=== PATIENT | female | born 1995 | race Caucasian/White ===

== ENCOUNTER 2018-03-10 19:07 | Emergency (ER) | payer OTHER ==
[2018-03-10 19:23] VITALS: BP 120/75; PULSE 96; TEMP 98.1; BMI 20.1
--- NOTE | 2018-03-10 19:54 | PDOC ---
History of Present Illness - General Chief Complaint: Pain Stated Complaint: ABD PAIN, VOMITING Time Seen by Provider: 03/10/18 19:44 History Source: Patient Exam Limitations: No Limitations - History of Present Illness Initial Comments: 03/10/18 19:49 Patient is a 23 year old female LMP 01/03/18 complaining of lower right abdominal pain since 02/26. States her pain is sharp, 02/25, intermittent. States she went to [facility] on 02/26 at which time she was told initially that she had an ovarian cyst. She states ultrasound was not done. Then 3 days ago went back to [facility] for the same pain and on this time told she was , however no ultrasound done. She denies any vaginal bleeding. Patient states currently in no pain. Has OB appointment in 3 days. PMHX: neg PSOCHX: (+) smoke hooka, (+) etoh, (-) drug ALL: NKDA GENERAL/CONSTITUTIONAL: [No fever or chills. No weakness. No weight change.] HEAD, EYES, EARS, NOSE AND THROAT: [No change in vision. No ear pain or discharge. No sore throat.] CARDIOVASCULAR: [No chest pain or shortness of breath.] RESPIRATORY: [No cough, wheezing, or hemoptysis.] GASTROINTESTINAL: [No nausea, vomiting, diarrhea or constipation. No rectal bleeding.] GENITOURINARY: [No dysuria, frequency, or change in urination.] MUSCULOSKELETAL: [No joint or muscle swelling or pain. No neck or back pain.] SKIN AND BREASTS: [No rash or easy bruising.] NEUROLOGIC: [No headache, vertigo, loss of consciousness, or loss of sensation.] PSYCHIATRIC: [No depression or anxiety.] ENDOCRINE: [No increased thirst. No abnormal weight change.] HEMATOLOGIC/LYMPHATIC: [No anemia, easy bleeding, or history of blood clots.] ALLERGIC/IMMUNOLOGIC: [No hives or skin allergy. No latex allergy.] GENERAL: [The patient is awake, alert, and fully oriented, in no acute distress. ] HEAD: [Normal with no signs of trauma.] EYES: [Pupils equal, round and reactive to light, extraocular movements intact, sclera anicteric, conjunctiva clear.] ENT: [Ears normal, nares patent, oropharynx clear without exudates. Moist mucous membranes.] NECK: [Normal range of motion, supple without lymphadenopathy, JVD, or masses.] LUNGS: [Breath sounds equal, clear to auscultation bilaterally. No wheezes, and no crackles.] HEART: [Regular rate and rhythm, normal S1 and S2 without murmur, rub.] ABDOMEN: [Soft, (+) tenderness in the Right lower groin, nontender McBurney's, normoactive bowel sounds. No guarding, no rebound. No masses.] PELVIC: External genitalia, creamy physiological discharge in the vault. Bimanual: Right adnexal tenderness, no CMT EXTREMITIES: [Normal range of motion, no edema. No clubbing or cyanosis. No cords, erythema, or tenderness.] NEUROLOGICAL: [Cranial nerves II through XII grossly intact. Normal speech, normal gait.] PSYCH: [Normal mood, normal affect.] SKIN: [Warm, Dry, normal turgor, no rashes or lesions noted.] Past History - Past Medical History Allergies/Adverse Reactions: Allergies Allergy/AdvReac Type Severity Reaction Status Date / Time No Known Allergies Allergy Verified 03/10/18 19:23 Home Medications: Ambulatory Orders Cephalexin [Keflex] 500 mg PO BID #10 capsule 03/10/18 Asthma: No Cardiac Disorders: No CVA: No COPD: No DVT: No Dementia: No - Suicide/Smoking/Psychosocial Hx Smoking History: Never smoked Drug/Substance Use Hx: No *Physical Exam - Vital Signs Last Vital Signs Temp Pulse Resp BP Pulse Ox 98.1 F 96 H 20 120/75 100 03/10/18 19:20 03/10/18 19:20 03/10/18 19:20 03/10/18 19:20 03/10/18 19:20 ED Treatment Course - LABORATORY CBC & Chemistry Diagram: 03/10/18 20:08 03/10/18 20:08 Medical Decision Making - Medical Decision Making 03/10/18 19:49 Patient is a 23 year old female LMP 01/12/18 complaining of lower right abdominal pain since 02/26. We will get labs, pain meds, IV fluids Ultrasound TV and TA. reassess 03/10/18 22:04 Patient Full Name: ALEISHA SINGLETON Patient Accession No: [id number] Patient : 1995 Reason for Exam: rlq pain Referring Physician: Patient Name: MANI MORAES THIS IS A PRELIMINARY REPORT FROM IMAGING PROGRAM ASSISTANT EXAM: Obstetrical ultrasound, less than 14 weeks, transabdominal and transvaginal IMAGES: 35 DATE OF EXAM: 2018-03-10 20:16:56 REASON FOR EXAM: Right lower quadrant pain COMPARISON: None. FINDINGS: Small intrauterine gestational sac containing only a yolk sac corresponding to approximately 5 weeks and 0 days. No pole or cardiac activity is noted. Complex area with hyperemia in the right ovary likely representing a collapsed recently ruptured corpus luteal cyst. Left maternal ovary appears normal. Duplex Ultrasound: Appropriate arterial and/or venous flow are noted in both ovaries, making torsion unlikely at this time. No significant free pelvic fluid. THIS DOCUMENT HAS BEEN ELECTRONICALLY SIGNED Artie Hernandez MD 03/10/2018 21:44 EST M.D. Please call Imaging Dx Board Operator [phone] ([phone]) with questions. INTERPRETING RADIOLOGIST: Artie Hernandez MD Electronically Signed: Mar 10, 2018 09:46PM EDT I discussed the physical exam findings, ancillary test results and final diagnoses with the patient. I answered all of the patient's questions. The patient was satisfied with the care received and felt comfortable with the discharge plan and treatment plan. The Patient agrees to follow up with the primary care physician within 24-72 hours. *DC/Admit/Observation/Transfer Diagnosis at time of Disposition: Abdominal pain affecting , antepartum - Discharge Dispostion Disposition: HOME Condition at time of disposition: Stable - Prescriptions Prescriptions: Cephalexin [Keflex] 500 mg PO BID #10 capsule - Referrals - Patient Instructions Printed Discharge Instructions: DI for Abdominal Pain -- Early Additional Instructions: Your Discharge Instructions: You must call primary care physician within 24 hours to arrange follow-up. Return to the Emergency Department with any new, persistent or worsening symptoms, for fever, chills, SOB, dizziness or any other concerning changes that may occur. [facility] Start the medication but call in 2 days for report if neg stop the antibx or you could wait to start antibx until the culture comes back. - Post Discharge Activity
[2018-03-10] MEDS ORDERED: SODIUM CHLORIDE 0.9% 500 ML INFUS.BAG IV ONE (20:07)
[2018-03-10 20:26] LABS: URINE APPEARANCE SLCLOUDY; URINE BILIRUBIN NEGATIVE (<2.0 mg/dL); URINE COLOR YELLOW; URINE GLUCOSE (UA) NEGATIVE (NEGATIVE); URINE KETONE NEGATIVE (NEGATIVE); URINE LEUK ESTERASE TRACE (NEGATIVE); URINE NITRITE NEGATIVE (NEGATIVE); URINE PROTEIN NEGATIVE (NEGATIVE); URINE UROBILINOGEN NEGATIVE mg/dL (0.2-1.0)
[2018-03-10 20:30] LABS: BASO % 0.6 % (0-2.0); EOS % 0.9 % (0-4.5); HEMATOCRIT 42.4 % (32.4-45.2); HEMOGLOBIN 14.3 GM/dL (10.7-15.3); LYMPH % 19.4 % (8-40); MCH 30.1 pg (25.7-33.7); MCHC 33.8 g/dl (32.0-36.0); MEAN CELL VOLUME 89.1 fl (80-96); MEAN PLT VOLUME 7.9 fl (7.5-11.1); MONO % 6.8 % (3.8-10.2); NEUT % 72.3 % (42.8-82.8); PLATELET COUNT 343 K/MM3 (134-434); RBC 4.76 M/mm3 (3.60-5.2); WHITE BLOOD COUNT 11.7 K/mm3 (4.0-10.0)
[2018-03-10 20:34] LABS: EPI CELLS FEW /HPF (FEW); URINE BACTERIA RARE /hpf (NONE SEEN); URINE MUCUS FEW
[2018-03-10 21:22] LABS: ALBUMIN 4.4 g/dl (3.4-5.0); ALK PHOS 46 U/L (45-117); ANION GAP 10 MMOL/L (8-16); BILIRUBIN,TOTAL 0.8 mg/dL (0.2-1); BLOOD UREA NITROGEN 20 mg/dL (7-18); CALCIUM 9.4 mg/dL (8.5-10.1); CHLORIDE 106 mmol/L (98-107); CO2 22 mmol/L (21-32); CREATININE 0.5 mg/dL (0.55-1.3); GLUCOSE,RANDOM 74 mg/dL (74-106); POTASSIUM 4.1 mmol/L (3.5-5.1); SGOT/AST 17 U/L (15-37); SGPT/ALT 23 U/L (13-61); SODIUM 138 mmol/L (136-145); TOT PROT 8.2 g/dl (6.4-8.2)
== END 2018-03-10 22:48 | disposition home or self-care (01) ==
LOC: JER 19:07
DX: O26.891 Other specified pregnancy related conditions, first trimester (principal); R10.31 Right lower quadrant pain; Z3A.01 Less than 8 weeks gestation of pregnancy
CPT/HCPCS: 36415; 76817-TC; 80053; 81003; 81015; 84702; 85025; 86850; 86900; 86901; 87086; 99282-25

== ENCOUNTER 2018-04-28 10:19 | Emergency (ER) | payer BC, OTHER ==
[2018-04-28 10:24] VITALS: BMI 20.9
[2018-04-28 11:02] LABS: BASO % 0.4 % (0-2.0); HEMOGLOBIN 12.8 GM/dL (10.7-15.3); LYMPH % 19.7 % (8-40); MCH 30.8 pg (25.7-33.7); MCHC 34.5 g/dl (32.0-36.0); MEAN CELL VOLUME 89.4 fl (80-96); MEAN PLT VOLUME 7.8 fl (7.5-11.1); MONO % 8.3 % (3.8-10.2); NEUT % 68.6 % (42.8-82.8); PLATELET COUNT 315 K/MM3 (134-434); RBC 4.14 M/mm3 (3.60-5.2); WHITE BLOOD COUNT 9.5 K/mm3 (4.0-10.0)
[2018-04-28] MEDS ORDERED: ACETAMINOPHEN 500 MG TABLET (FP) PO ONE (11:13)
--- NOTE | 2018-04-28 11:16 | PDOC ---
Attending Attestation - Resident Resident Name: JaninaMilli - ED Attending Attestation I have performed the following: I have examined & evaluated the patient, The case was reviewed & discussed with the resident, I agree w/resident's findings & plan, Exceptions are as noted - HPI HPI: 04/28/18 11:41 23y F at 12 weeks presents to the ED with lower abdom pain starting last night. Pt notes the pain is constant, but intermittently worsens and is more severe this morning. Pt notes an episode of vomiting last night but notes she has been feeling during her in general. vomit is nbnb, and she is not nauseus currently. Pt denies any fever/chills, frequency, dysuria, foul- smelling urine, diarrhea, vaginal bleeding. Eyes any back pain, chest pain, shortness of breath, leg swelling. Patient states she has never had this type of pain before. GENERAL: The patient is awake, alert, and fully oriented, Nontoxic - in no acute distress. HEAD: Normocephalic, atraumatic. EYES: extraocular movements intact, sclera anicteric, conjunctiva clear. ENT: Normal voice, Moist mucous membranes. NECK: Normal range of motion, supple LUNGS: Breath sounds equal, clear to auscultation bilaterally. No wheezes, no rhonchi, no rales. HEART: Regular rate and rhythm, normal S1 and S2 without murmur, rub or gallop. ABDOMEN: Soft, mild diffuse lower abdominal tenderness worsening suprapubic region No guarding, no rebound. No CVA tenderness EXTREMITIES: Normal range of motion, no edema. No clubbing or cyanosis. No cords, erythema, or tenderness. NEUROLOGICAL: No facial assymetry, Normal speech, PSYCH: Normal mood, normal affect. SKIN: Warm, Dry, normal turgor, - Medical Decision Making 04/28/18 11:44 ddx for the patient's symptoms includes cystitis, enteritis, appendicitis, diverticulitis Will obtain lab work, urine we'll treat the patient with some fluids and Tylenol Will obtain ultrasound will reassess
--- NOTE | 2018-04-28 11:23 | PDOC ---
History of Present Illness - General Chief Complaint: Pain Stated Complaint: STOMACH PAIN/12 WKS Time Seen by Provider: 04/28/18 10:44 History Source: Patient Exam Limitations: No Limitations - History of Present Illness Initial Comments: 04/28/18 11:19 Pt is a 23yo f 12weeks presenting to the ED with diffuse abdominal pain that started last night. She says she had [place] pizza, had 1 episode of emesis and abdominal pain started last night. She woke up this morning but pain has not gotten better. She has not taken any medications. She admits to diffuse abdominal pain. Denies nausea, vomiting today, diarrhea, vaginal bleeding, leakage of fluid, urinary symptoms, fevers, chills, chest pain , sob. She says she has vaginal discharge which is due to yeast infection. Last OB visit was last month and pt says everything was fine. PMH: none PSH: none Meds: none Social: denies Allergies: nkda Past History - Past Medical History Allergies/Adverse Reactions: Allergies Allergy/AdvReac Type Severity Reaction Status Date / Time No Known Allergies Allergy Verified 04/28/18 10:24 Home Medications: Ambulatory Orders Cephalexin Monohydrate [Keflex -] 500 mg PO BID #14 capsule 04/28/18 Asthma: No Cardiac Disorders: No CVA: No COPD: No DVT: No Dementia: No - Reproductive History Therapeutic (s) & number: No - Suicide/Smoking/Psychosocial Hx Smoking History: Never smoked Drug/Substance Use Hx: No *Physical Exam - Vital Signs Last Vital Signs Temp Pulse Resp BP Pulse Ox 98.4 F 70 18 108/70 100 04/28/18 10:20 04/28/18 10:20 04/28/18 10:20 04/28/18 10:20 04/28/18 10:20 - Physical Exam Gastrointestinal/Abdominal: positive: Tender (Left quadrants >r quadrants. mildly positive psoas sign. negative rosving) ED Treatment Course - LABORATORY CBC & Chemistry Diagram: 04/28/18 10:39 04/28/18 10:39 - ADDITIONAL ORDERS Additional order review: 04/28/18 10:39 RBC 4.14 MCV 89.4 MCHC 34.5 RDW 13.0 MPV 7.8 Neutrophils % 68.6 Lymphocytes % 19.7 Monocytes % 8.3 Eosinophils % 3.0 D Basophils % 0.4 - RADIOLOGY Radiology Studies Ordered: Category Date Time Status ABDOMEN US [US] Stat Ultrasound 04/28/18 11:18 Ordered Medical Decision Making - Medical Decision Making 04/28/18 12:52 Pt is a 23yo f 12weeks presenting to the ED with diffuse abdominal pain that started last night. *DC/Admit/Observation/Transfer Diagnosis at time of Disposition: UTI (urinary tract infection) Qualifiers: Urinary tract infection type: site unspecified Hematuria presence: without hematuria Qualified Code(s): N39.0 - Urinary tract infection, site not specified - Discharge Dispostion Disposition: HOME Condition at time of disposition: Good Decision to Admit order: No - Prescriptions Prescriptions: Cephalexin Monohydrate [Keflex -] 500 mg PO BID #14 capsule - Referrals - Patient Instructions Printed Discharge Instructions: DI for Urinary Tract Infection (UTI) Additional Instructions: You were seen here today for abdominal pain. Your tests show that you have a urinary tract infection. All of your other tests were normal and baby is doing fine! I have sent a prescription over to your pharmacy for Keflex (cephalexin), an antibiotic to treat the UTI. Please take twice a day for 7 days. Make sure you finish the course. You can take Tylenol for pain. Please do not take Motrin (ibuprofen), Aleeve, or Advil for pain. Remember to stay hydrated and eat healthy. Come back to the emergency room if pain gets worse, you have pain with urination , you notice blood in the urine, you have vaginal bleeding, you have contractions, you develop fever, or if any new concerning symptom develops. Thank you - Post Discharge Activity
[2018-04-28 11:33] LABS: URINE APPEARANCE SLCLOUDY; URINE BILIRUBIN NEGATIVE (<2.0 mg/dL); URINE COLOR YELLOW; URINE GLUCOSE (UA) NEGATIVE (NEGATIVE); URINE KETONE NEGATIVE (NEGATIVE); URINE LEUK ESTERASE 1+ (NEGATIVE); URINE NITRITE NEGATIVE (NEGATIVE); URINE PROTEIN NEGATIVE (NEGATIVE); URINE UROBILINOGEN 4.0 E.U/dl mg/dL (0.2-1.0)
[2018-04-28] MEDS ORDERED: SODIUM CHLORIDE 1,000 ML IV STA (11:42)
[2018-04-28] MEDS ORDERED: ACETAMINOPHEN 325 MG TABLET (FP) ONE (11:49)
[2018-04-28 11:51] LABS: ALBUMIN 3.4 g/dl (3.4-5.0); ALK PHOS 43 U/L (45-117); ANION GAP 10 MMOL/L (8-16); BILIRUBIN,TOTAL 0.3 mg/dL (0.2-1); BLOOD UREA NITROGEN 12 mg/dL (7-18); CALCIUM 8.5 mg/dL (8.5-10.1); CHLORIDE 106 mmol/L (98-107); CO2 23 mmol/L (21-32); CREATININE 0.4 mg/dL (0.55-1.3); GLUCOSE,RANDOM 71 mg/dL (74-106); POTASSIUM 3.9 mmol/L (3.5-5.1); SGOT/AST 15 U/L (15-37); SGPT/ALT 16 U/L (13-61); SODIUM 139 mmol/L (136-145); TOT PROT 6.7 g/dl (6.4-8.2)
[2018-04-28 12:07] LABS: EPI CELLS RARE /HPF (FEW); URINE MUCUS MANY
[2018-04-28] MEDS ORDERED: CEPHALEXIN MONOHYDRATE 500 MG CAPSULE (UD) PO ONE (12:33)
[2018-04-28 13:34] VITALS: BP 123/56; PULSE 82; TEMP 98
== END 2018-04-28 13:34 | disposition home or self-care (01) ==
LOC: JER 10:19
PROC: 3E0337Z Introduction of Electrolytic and Water Balance Substance into Peripheral Vein, Percutaneous Approach (ICD-10-PCS; principal; 2018-04-28)
DX: O26.891 Other specified pregnancy related conditions, first trimester (principal); O23.31 Infections of other parts of urinary tract in pregnancy, first trimester; Z3A.12 12 weeks gestation of pregnancy
CPT/HCPCS: 36415; 76705-TC; 76801-TC; 76856-TC; 80053; 81003; 81015; 84702; 85025; 86850; 86900; 86901; 87086; 87186; 96360; 99284-25; J7030

== ENCOUNTER 2018-05-17 08:46 | Emergency (ER) | payer OTHER ==
[2018-05-17 08:51] VITALS: TEMP 98.2; BMI 21.7
--- NOTE | 2018-05-17 09:22 | PDOC ---
History of Present Illness - General Chief Complaint: Back Pain Stated Complaint: BACK PAIN Time Seen by Provider: 05/17/18 09:03 History Source: Patient Exam Limitations: No Limitations - History of Present Illness Initial Comments: 05/17/18 09:29 Patient is a 23-year-old female, 15 weeks , who presents to the emergency department for right-sided back pain starting 3 days ago. Patient states that the pain is worse with movement and she is unable to find a comfortable position. She states that the pain radiates down into her buttock. Denies trauma, fall, heavy lifting. She states that walking helps with the pain. Denies fevers, chills, dysuria, hematuria, nausea, vomiting, vaginal bleeding, bladder/bowel incontinence, saddle anesthesia. Patient was seen in our ER on 04/28/18 and diagnosed with a UTI. The urine grew strep group B. She was treated with Keflex. Past History - Travel Traveled outside of the country in the last 30 days: No Close contact w/someone who was outside of country & ill: No - Past Medical History Allergies/Adverse Reactions: Allergies Allergy/AdvReac Type Severity Reaction Status Date / Time No Known Allergies Allergy Verified 05/17/18 08:47 Home Medications: Ambulatory Orders Cephalexin Monohydrate [Keflex -] 500 mg PO BID #14 capsule 04/28/18 Cephalexin [Keflex] 500 mg PO BID 5 Days #10 capsule 05/17/18 Asthma: No Cardiac Disorders: No CVA: No COPD: No DVT: No Dementia: No - Reproductive History Is Patient Now?: Yes Therapeutic (s) & number: No - Suicide/Smoking/Psychosocial Hx Smoking History: Never smoked Drug/Substance Use Hx: No Review of Systems - Review of Systems Able to Perform ROS?: Yes Comments:: 05/17/18 09:20 CONSTITUTIONAL: Absent: fever, chills, diaphoresis, generalized weakness, malaise, loss of appetite HEENT: Absent: rhinorrhea, nasal congestion, throat pain, throat swelling, difficulty swallowing, mouth swelling, ear pain, eye pain, visual Changes CARDIOVASCULAR: Absent: chest pain, loss of consciousness, palpitations, irregular heart rate, peripheral edema RESPIRATORY: Absent: cough, shortness of breath, dyspnea with exertion, orthopnea, wheezing, stridor, hemoptysis GASTROINTESTINAL: Absent: abdominal pain, abdominal distension, nausea, vomiting, diarrhea, constipation, melena, hematochezia GENITOURINARY: Absent: dysuria, frequency, urgency, hesitancy, hematuria, flank pain, genital pain MUSCULOSKELETAL: Present: R lower back pain Absent: myalgia, arthralgia, joint swelling SKIN: Absent: rash, itching, pallor HEMATOLOGIC/IMMUNOLOGIC: Absent: easy bleeding, easy bruising, lymphadenopathy, frequent infections ENDOCRINE: Absent: unexplained weight gain, unexplained weight loss, heat intolerance, cold intolerance NEUROLOGIC: Absent: headache, focal weakness or paresthesias, dizziness, unsteady gait, seizure, mental status changes, bladder or bowel incontinence PSYCHIATRIC: Absent: anxiety, depression, suicidal or homicidal ideation, hallucinations. Is the patient limited Vietnamese proficient: No *Physical Exam - Vital Signs Last Vital Signs Temp Pulse Resp BP Pulse Ox 98.2 F 85 18 104/67 99 05/17/18 08:49 05/17/18 08:49 05/17/18 08:49 05/17/18 08:49 05/17/18 08:49 - Physical Exam Comments: 05/17/18 09:20 GENERAL: Well developed, well nourished. Awake and alert. No acute distress. HEENT: Normocephalic, atraumatic. PERRLA, EOMI. No conjunctival pallor. Sclera are non- icteric. Moist mucous membranes. Oropharynx is clear. NECK: Supple. Full ROM. No JVD. Carotid pulses 2+ and symmetric, without bruits. No thyromegaly. No lymphadenopathy. CARDIOVASCULAR: Regular rate and rhythm. No murmurs, rubs, or gallops. Distal pulses are 2+ and symmetric. PULMONARY: No evidence of respiratory distress. Lungs clear to auscultation bilaterally. No wheezing, rales or rhonchi. ABDOMINAL: Soft. Non-tender. Non-distended. No rebound or guarding. No organomegaly. Normoactive bowel sounds. MUSCULOSKELETAL TTP of the R paraspinous muscles at the level of L3-S1 with palpable knot. Negative straight leg raise testing. Normal range of motion at all joints. No bony deformities or tenderness. (+) R CVA tenderness. EXTREMITIES: No cyanosis. No clubbing. No edema. No calf tenderness. SKIN: Warm and dry. Normal capillary refill. No rashes. No jaundice. NEUROLOGICAL: Alert, awake, appropriate. Cranial nerves 2-12 intact. No deficits to light touch and temperature in face, upper extremities and lower extremities. No motor deficits in the in face, upper extremities and lower extremities. Normoreflexic in the upper and lower extremities. Normal speech. Toes are down- going bilaterally. Gait is normal without ataxia. PSYCHIATRIC: Cooperative. Good eye contact. Appropriate mood and affect. Moderate Sedation - Procedure Monitoring Vital Signs: Procedure Monitoring Vital Signs Temperature 98.2 F 05/17/18 08:49 Pulse Rate 85 05/17/18 08:49 Respiratory Rate 18 05/17/18 08:49 Blood Pressure 104/67 05/17/18 08:49 O2 Sat by Pulse Oximetry (%) 99 05/17/18 08:49 ED Treatment Course - LABORATORY CBC & Chemistry Diagram: 05/17/18 10:00 05/17/18 10:00 Medical Decision Making - Medical Decision Making 05/17/18 09:31 Patient is a 23-year-old female currently 15 weeks , who presents to the emergency department for right lower back pain for 3 days. -Pt with TTP of the R paraspinous muscles, L3-S1, with palpable knot consistent with muscle spasm. -No trauma, or fever. No saddle anesthesia or bladder/bowel incontinence. - (+) R CVA tenderness. -Pt is neurologically intact on exam with no focal findings. -Given patient was just in the emergency department for UTI 2 weeks ago, differential diagnosis includes but is not limited to musculoskeletal spasm versus pyelonephritis. -We will obtain labs, urine. Give Tylenol for pain relief -Reevaluate 05/17/18 10:58 -Urine shows 8 WBC and trace leukocytes. Will re-prescribe keflex for a UTI -WBC count normal with no shift, or bandemia -CR/BUN WNL -Unlikely pyelo at this time as CBC and CMP are grossly normal. Most likely and MSK spasm -Bedside US by Dr. Spencer shows an IUP with a heart rate at approximately 140. -Pt to follow up at [facility] at [address] -Tylenol given for back pain -DC home -I discussed the physical exam findings, ancillary test results and final diagnoses with the patient. I answered all of the patient's questions. The patient was satisfied with the care received and felt comfortable with the discharge plan and treatment plan. The Patient agrees to follow up with the primary care physician/specialist within 24-72 hours. Return precautions were given. *DC/Admit/Observation/Transfer Diagnosis at time of Disposition: Qualifiers: Weeks of gestation: 15 weeks Qualified Code(s): Z3A.15 - 15 weeks gestation of UTI (urinary tract infection) Qualifiers: Urinary tract infection type: acute cystitis Hematuria presence: without hematuria Qualified Code(s): N30.00 - Acute cystitis without hematuria - Discharge Dispostion Disposition: HOME - Prescriptions Prescriptions: Cephalexin [Keflex] 500 mg PO BID 5 Days #10 capsule - Referrals - Patient Instructions Printed Discharge Instructions: Urinary Tract Infection Additional Instructions: you can take tylenol 500 mg every 6 hrs as needed for back pain. take keflex as prescribed for your urinary tract infection. you should follow up with your corporate intern at [facility] call to schedule. return for vomiting fever, worsening pain or any concerns. - Post Discharge Activity Forms/Work/School Notes: Back to Work
[2018-05-17] MEDS ORDERED: ACETAMINOPHEN 325 MG TABLET (FP) PO ONE (09:25)
[2018-05-17] MEDS ORDERED: ACETAMINOPHEN 325 MG TABLET (FP) ONE (10:07)
[2018-05-17 10:14] LABS: BASO % 0.3 % (0-2.0); EOS % 4.6 % (0-4.5); HEMATOCRIT 34.2 % (32.4-45.2); HEMOGLOBIN 12.1 GM/dL (10.7-15.3); LYMPH % 13.6 % (8-40); MCH 31.2 pg (25.7-33.7); MCHC 35.3 g/dl (32.0-36.0); MEAN CELL VOLUME 88.3 fl (80-96); MEAN PLT VOLUME 7.8 fl (7.5-11.1); MONO % 5.3 % (3.8-10.2); NEUT % 76.2 % (42.8-82.8); PLATELET COUNT 337 K/MM3 (134-434); RBC 3.88 M/mm3 (3.60-5.2); RDW 13.2 % (11.6-15.6); WHITE BLOOD COUNT 9.9 K/mm3 (4.0-10.0)
[2018-05-17 10:15] LABS: URINE APPEARANCE SLCLOUDY; URINE BILIRUBIN NEGATIVE (<2.0 mg/dL); URINE COLOR LTYELLOW; URINE GLUCOSE (UA) NEGATIVE (NEGATIVE); URINE KETONE NEGATIVE (NEGATIVE); URINE LEUK ESTERASE TRACE (NEGATIVE); URINE NITRITE NEGATIVE (NEGATIVE); URINE PROTEIN NEGATIVE (NEGATIVE); URINE UROBILINOGEN NEGATIVE mg/dL (0.2-1.0)
[2018-05-17 10:17] LABS: EPI CELLS FEW /HPF (FEW); URINE MUCUS RARE
[2018-05-17 10:44] LABS: ALBUMIN 3.2 g/dl (3.4-5.0); ALK PHOS 42 U/L (45-117); ANION GAP 10 MMOL/L (8-16); BILIRUBIN,TOTAL 0.4 mg/dL (0.2-1); BLOOD UREA NITROGEN 16 mg/dL (7-18); CALCIUM 8.8 mg/dL (8.5-10.1); CHLORIDE 105 mmol/L (98-107); CO2 23 mmol/L (21-32); CREATININE 0.4 mg/dL (0.55-1.3); GLUCOSE,RANDOM 96 mg/dL (74-106); POTASSIUM 3.7 mmol/L (3.5-5.1); SGOT/AST 18 U/L (15-37); SGPT/ALT 21 U/L (13-61); SODIUM 137 mmol/L (136-145); TOT PROT 6.6 g/dl (6.4-8.2)
--- NOTE | 2018-05-17 10:53 | PDOC ---
*Physical Exam - Vital Signs Last Vital Signs Temp Pulse Resp BP Pulse Ox 98.2 F 85 18 104/67 99 05/17/18 08:49 05/17/18 08:49 05/17/18 08:49 05/17/18 08:49 05/17/18 08:49 - Physical Exam General Appearance: Yes: Appropriately Dressed Neck: positive: Trachea midline Respiratory/Chest: positive: Lungs Clear, Normal Breath Sounds Cardiovascular: positive: Regular Rhythm, Regular Rate, S1, S2 Gastrointestinal/Abdominal: positive: Normal Bowel Sounds, Flat, Soft. negative : Tender Extremity: positive: Normal Capillary Refill Integumentary: positive: Normal Color, Dry, Warm Neurologic: positive: Fully Oriented, Alert, Normal Mood/Affect ED Treatment Course - LABORATORY CBC & Chemistry Diagram: 05/17/18 10:00 05/17/18 10:00 - ADDITIONAL ORDERS Additional order review: Laboratory Results 05/17/18 05/17/18 10:00 10:00 Sodium 137 Potassium 3.7 Chloride 105 Carbon Dioxide 23 Anion Gap 10 BUN 16 Creatinine 0.4 L Creat Clearance w eGFR > 60 Random Glucose 96 Calcium 8.8 Total Bilirubin 0.4 AST 18 ALT 21 Alkaline Phosphatase 42 L Total Protein 6.6 Albumin 3.2 L Urine Color Ltyellow Urine Appearance Slcloudy Urine pH 6.0 Ur Specific [place] 1.020 Urine Protein Negative Urine Glucose (UA) Negative Urine Ketones Negative Urine Blood Negative Urine Nitrite Negative Urine Bilirubin Negative Urine Urobilinogen Negative Ur Leukocyte Esterase Trace Urine WBC (Auto) 9 Urine RBC (Auto) 1 Ur Epithelial Cells Few Urine Mucus Rare 05/17/18 10:00 RBC 3.88 MCV 88.3 MCHC 35.3 RDW 13.2 MPV 7.8 Neutrophils % 76.2 Lymphocytes % 13.6 D Monocytes % 5.3 Eosinophils % 4.6 H Basophils % 0.3 - Medications Given in the ED: ED Medications Discontinued Medications Generic Name Dose Route Start Last Admin Trade Name Freq PRN Reason Stop Dose Admin Acetaminophen 650 mg 05/17/18 09:25 05/17/18 10:10 Tylenol - PO 05/17/18 09:26 650 mg ONCE ONE Administration Medical Decision Making - Medical Decision Making 05/17/18 10:48 23 yo F currently 15 weeks here with flank pain. started few days ago. worse with changing positions and movement. no weakness or numbness. no urinary complaints did get treatd for a uti recently. no f/c no loss of fluid. no vaginal bleeding. on exam mild cva tenderenss. worse with bending. no weakness lower ext. sensation intact. cardiac lung exam normal. focused eD utlrasound bedisde ob evalute well being. heart rate 141 bpm. movement noted. impressions: live IUP. pt with residual uti.plan dc on keflex, tylenol for pain and follow up [facility] *DC/Admit/Observation/Transfer Diagnosis at time of Disposition: Qualifiers: Weeks of gestation: 15 weeks Qualified Code(s): Z3A.15 - 15 weeks gestation of UTI (urinary tract infection) Qualifiers: Urinary tract infection type: acute cystitis Hematuria presence: without hematuria Qualified Code(s): N30.00 - Acute cystitis without hematuria - Discharge Dispostion Disposition: HOME Condition at time of disposition: Improved - Prescriptions Prescriptions: Cephalexin [Keflex] 500 mg PO BID 5 Days #10 capsule - Referrals Referrals: Raúl Campos MD [Staff Physician] - - Patient Instructions Printed Discharge Instructions: Urinary Tract Infection Additional Instructions: you can take tylenol 500 mg every 6 hrs as needed for back pain. take keflex as prescribed for your urinary tract infection. you should follow up with your [facility] call to schedule. return for vomiting fever, worsening pain or any concerns. - Post Discharge Activity Forms/Work/School Notes: Back to Work
[2018-05-17 11:42] VITALS: BP 114/65; PULSE 86
== END 2018-05-17 11:40 | disposition home or self-care (01) ==
LOC: JER 08:46
DX: O26.892 Other specified pregnancy related conditions, second trimester (principal); Z3A.15 15 weeks gestation of pregnancy
CPT/HCPCS: 36415; 80053; 81003; 81015; 85025; 87086; 99282-25

== ENCOUNTER 2018-06-24 13:00 | Emergency (ER) | payer BC, OTHER ==
[2018-06-24 13:09] VITALS: BP 104/53; PULSE 102; TEMP 98; BMI 23.8
--- NOTE | 2018-06-24 14:35 | PDOC ---
History of Present Illness - General Chief Complaint: Pain Stated Complaint: STOMACH PAIN/19 WKS Time Seen by Provider: 06/24/18 13:52 History Source: Patient Exam Limitations: No Limitations - History of Present Illness Initial Comments: 06/24/18 14:55 Patient is a 23 year old female , 19 weeks with no significant PMHx who presents here today complaining of a three days history of sharp, intermittent, nonradiating left lower abdominal pain associated with cold likely symptoms of runny nose, congestion and throat irritation. Patient reports the abdominal pain comes in goes every few minutes and lasts for a few seconds. Patient reports sick contact with her step son who has cold like symptoms Patient otherwise denies any back pain, urinary frequency, dysuria, hematuria, melena, hematochezia, hematemesis, hemoptysis, chest pain, shortness of breath, nausea, vomiting, fever, chills, diarrhea, constipation, vaginal bleeding or spotting. PMHx: Denies PSHx: Denies Social Hx: Denies denies smoking Denies drug use Denies alcohol use Family Hx: Denies OBGYN Hx: LMP January 16 first trimester spontaneous 1 Elective Last U/S 06/02/18 Past History - Past Medical History Allergies/Adverse Reactions: Allergies Allergy/AdvReac Type Severity Reaction Status Date / Time No Known Allergies Allergy Verified 05/17/18 08:47 Home Medications: Ambulatory Orders Cephalexin Monohydrate [Keflex -] 500 mg PO BID #10 capsule 06/24/18 Pnv No.95/Ferrous Fum/Folic AC [ Vitamin Tablet] 1 each PO DAILY Asthma: No Cardiac Disorders: No CVA: No COPD: No DVT: No Dementia: No - Reproductive History Is Patient Now?: Yes Cervical CA: No Dysfunctional Uterine Bleeding: No Ectopic : No Endometrial CA: No Polycystic Ovaries: No Therapeutic (s) & number: No Tubal Ligation: No Spontaneous : 1 - Immunization History Immunization Up to Date: Yes - Suicide/Smoking/Psychosocial Hx Smoking History: Never smoked Have you smoked in the past 12 months: No Information on smoking cessation initiated: No Hx Alcohol Use: No Drug/Substance Use Hx: No Review of Systems - Review of Systems Constitutional: No: Chills, Diaphoresis, Fever, Night Sweats, Weakness HEENTM: Yes: Nose Congestion, Throat Pain. No: Ear Discharge, Nose Pain, Nose Bleeding, Throat Swelling, Mouth Pain, Difficulty Swallowing, Mouth Swelling Respiratory: No: Cough, Orthopnea, Shortness of Breath, SOB with Exertion, SOB at Rest, Stridor, Wheezing, Productive cough, Hemoptysis Cardiac (ROS): No: Chest Pain, Edema, Irregular Heart Rate, Lightheadedness, Palpitations, Syncope, Chest Tightness ABD/GI: Yes: Other ((+) LLQ abdominal pain). No: Constipated, Diarrhea, Nausea , Poor Fluid Intake, Vomiting : No: Burning, Dysuria, Discharge, Frequency, Flank Pain, Hematuria, Pain, Urgency Musculoskeletal: No: Back Pain, Muscle Pain Neurological: No: Headache, Numbness, Tremors, Weakness *Physical Exam - Vital Signs Last Vital Signs Temp Pulse Resp BP Pulse Ox 98 F 102 H 20 104/53 L 100 06/24/18 13:06/24/18 13:06/24/18 13:06/24/18 13:06/24/18 13:01 - Physical Exam General Appearance: Yes: Other (Awake, alert, oriented x3 in no acute distress ) HEENT: positive: EOMI, OPHELIA, Normal ENT Inspection, Normal Voice, Symmetrical, Pharynx Normal Neck: positive: Supple. negative: Decreased range of motion, Lymphadenopathy (R ), Lymphadenopathy (L) Respiratory/Chest: positive: Lungs Clear, Normal Breath Sounds. negative: Chest Tender, Respiratory Distress, Accessory Muscle Use, Crackles, Rales, Rhonchi, Wheezing Cardiovascular: positive: Regular Rhythm, Regular Rate, S1, S2. negative: Edema , JVD, Murmur Female Pelvic Exam: positive: normal external exam, cervical os closed, normal adnexa. negative: discharge, lesions Gastrointestinal/Abdominal: positive: Other (Soft, nontender, nondistended, normoactive bowel sounds, no organomegaly, guarding, rebound tenderness. (-) Wyatt's sign) Musculoskeletal: positive: Normal Inspection. negative: CVA Tenderness, CVA Tenderness (R), CVA Tenderness (L), Decreased Range of Motion Extremity: positive: Normal Capillary Refill, Normal Inspection, Normal Range of Motion. negative: Swelling, Calf Tenderness, Erythema Integumentary: positive: Normal Color, Dry, Warm. negative: Erythema, Jaundice , Swelling, Ecchymosis Neurologic: positive: research programmer II-XII NML intact, Fully Oriented, Alert, Normal Mood/ Affect, Normal Response, Motor Strength 5/5 Moderate Sedation - Procedure Monitoring Vital Signs: Procedure Monitoring Vital Signs Temperature 98 F 06/24/18 13:01 Pulse Rate 102 H 06/24/18 13:01 Respiratory Rate 20 06/24/18 13:01 Blood Pressure 104/53 L 06/24/18 13:01 O2 Sat by Pulse Oximetry (%) 100 06/24/18 13:01 ED Treatment Course - LABORATORY CBC & Chemistry Diagram: 06/24/18 14:58 06/24/18 14:48 - RADIOLOGY Radiology Studies Ordered: Category Date Time Status ABDOMEN US [US] Stat Ultrasound 06/24/18 14:33 Ordered Medical Decision Making - Medical Decision Making 06/24/18 15:13 Patient is a 23 year old female 19 weeks who presents here for LLQ abdominal pain that started three days ago associated with cold likely symptoms. DDx includes but not limited to ectopic , ovarian cysts, spontaneous , UTI, Pyelonephritis, Nephrolithiasis -CBC, CMP B-HCG quant -Abdominal U/S -Influenza swab -Urinalysis and urine culture 06/24/18 15:44 -Labs unremarkable -U/A revealed 1+ LE and 9 WBC -U/S pending 06/24/18 16:22 -Keflex 500mg PO ordered -U/S pending 06/24/18 16:37 -U/S revealed patient 19 weeks with HR 146BPM -Will discharge patient on Keflex and recommend f/up with OBGYN and PCP *DC/Admit/Observation/Transfer Diagnosis at time of Disposition: UTI in Qualifiers: Trimester: second trimester Qualified Code(s): O23.42 - Unspecified infection of urinary tract in , second trimester - Discharge Dispostion Disposition: HOME Condition at time of disposition: Stable Decision to Admit order: No - Prescriptions Prescriptions: Cephalexin Monohydrate [Keflex -] 500 mg PO BID #10 capsule - Referrals Referrals: Eric Estrada [Primary Care Provider] - - Patient Instructions - Post Discharge Activity
--- NOTE | 2018-06-24 14:45 | PDOC ---
Attending Attestation - HPI HPI: 06/24/18 16:32 The patient is a 23 year old female , 19 weeks with no significant PMH with left lower abdominal pain for the past three days. Patient describes the abdominal pain as sharp, intermittent, and nonradiating. Patient also admits to positive sick contact. The patient denies chest pain, shortness of breath, headache and dizziness. Denies fever, chills, nausea, vomit, diarrhea and constipation. Denies dysuria, frequency, urgency and hematuria. Allergies: NKA Past surgical history: None reported. Social history: No reported alcohol, drug or cigarette use. PCP: Dr. Estrada <Monique Lopez - Last Filed: 06/24/18 16:32> - Resident Resident Name: Carolyne Nieto - ED Attending Attestation I have performed the following: I have examined & evaluated the patient, The case was reviewed & discussed with the resident, I agree w/resident's findings & plan, Exceptions are as noted - Physicial Exam PE: GENERAL: Awake, alert, and fully oriented, in no acute distress HEAD: No signs of trauma EYES: PERRLA, EOMI, sclera anicteric, conjunctiva clear ENT: Auricles normal inspection, hearing grossly normal, nares patent, oropharynx clear without exudates. Moist mucosa NECK: Normal ROM, supple, no lymphadenopathy, JVD, or masses LUNGS: Breath sounds equal, clear to auscultation bilaterally. No wheezes, and no crackles HEART: Regular rate and rhythm, normal S1 and S2, no murmurs, rubs or gallops ABDOMEN: Soft, +suprapubic and LLQ tenderness, normoactive bowel sounds. No guarding, no rebound. No masses EXTREMITIES: Normal range of motion, no edema. No clubbing or cyanosis. No cords, erythema, or tenderness NEUROLOGICAL: Cranial nerves II through XII grossly intact. Normal speech, normal gait. Motor and sensation intact SKIN: Warm, Dry, normal turgor, no rashes or lesions noted. - Medical Decision Making Will treat for UTI with keflex. There are no signs of acute abdomen. Symptoms likely due to round ligament pain. Encouraged outpatient discovery manager f/u. <Pratima Remy - Last Filed: 06/27/18 09:53>
[2018-06-24 15:10] LABS: BASO % 0.7 % (0-2.0); EOS % 4.1 % (0-4.5); HEMATOCRIT 36.1 % (32.4-45.2); HEMOGLOBIN 11.9 GM/dL (10.7-15.3); LYMPH % 10.2 % (8-40); MCH 30.1 pg (25.7-33.7); MCHC 32.8 g/dl (32.0-36.0); MEAN CELL VOLUME 91.7 fl (80-96); MEAN PLT VOLUME 7.6 fl (7.5-11.1); MONO % 8.5 % (3.8-10.2); NEUT % 76.5 % (42.8-82.8); PLATELET COUNT 291 K/MM3 (134-434); RBC 3.94 M/mm3 (3.60-5.2); RDW 13.2 % (11.6-15.6); WHITE BLOOD COUNT 8.9 K/mm3 (4.0-10.0)
[2018-06-24 15:20] LABS: URINE APPEARANCE SLCLOUDY; URINE BILIRUBIN NEGATIVE (<2.0 mg/dL); URINE COLOR YELLOW; URINE GLUCOSE (UA) NEGATIVE (NEGATIVE); URINE KETONE NEGATIVE (NEGATIVE); URINE LEUK ESTERASE 1+ (NEGATIVE); URINE NITRITE NEGATIVE (NEGATIVE); URINE PROTEIN NEGATIVE (NEGATIVE); URINE UROBILINOGEN NEGATIVE mg/dL (0.2-1.0)
[2018-06-24 15:27] LABS: EPI CELLS MODERATE /HPF (FEW); URINE BACTERIA RARE /hpf (NONE SEEN); URINE HYALINE CAST 3 /lpf; URINE MUCUS RARE
[2018-06-24 15:41] LABS: ALBUMIN 3.1 g/dl (3.4-5.0); ALK PHOS 64 U/L (45-117); ANION GAP 8 MMOL/L (8-16); BILIRUBIN,TOTAL 0.4 mg/dL (0.2-1); BLOOD UREA NITROGEN 10 mg/dL (7-18); CALCIUM 8.8 mg/dL (8.5-10.1); CHLORIDE 108 mmol/L (98-107); CO2 25 mmol/L (21-32); CREATININE 0.4 mg/dL (0.55-1.3); GLUCOSE,RANDOM 79 mg/dL (74-106); POTASSIUM 4.1 mmol/L (3.5-5.1); SGOT/AST 37 U/L (15-37); SGPT/ALT 49 U/L (13-61); SODIUM 141 mmol/L (136-145); TOT PROT 6.7 g/dl (6.4-8.2)
[2018-06-24] MEDS ORDERED: CEPHALEXIN MONOHYDRATE 500 MG CAPSULE (UD) PO ONE (16:17)
[2018-06-24] MEDS ORDERED: CEPHALEXIN MONOHYDRATE 500 MG CAPSULE (UD) ONE (16:24)
== END 2018-06-24 17:15 | disposition home or self-care (01) ==
LOC: JER 13:00
DX: O26.892 Other specified pregnancy related conditions, second trimester (principal); Z3A.19 19 weeks gestation of pregnancy; O23.42 Unspecified infection of urinary tract in pregnancy, second trimester
CPT/HCPCS: 36415; 76700-TC; 80053; 81003; 81015; 85025; 87086; 87186; 87804; 99283-25

== ENCOUNTER 2018-08-14 11:12 | Emergency (ER) | payer OTHER ==
[2018-08-14 11:18] VITALS: BMI 27.4
--- NOTE | 2018-08-14 11:46 | PDOC ---
Rapid Medical Evaluation Chief Complaint: Diarrhea Time Seen by Provider: 08/14/18 11:30 Medical Evaluation: Allergies Allergy/AdvReac Type Severity Reaction Status Date / Time No Known Allergies Allergy Verified 08/14/18 11:18 Vital Signs Temp Pulse Resp BP Pulse Ox 98.3 F 93 H 18 105/64 98 08/14/18 11:14 08/14/18 11:14 08/14/18 11:14 08/14/18 11:14 08/14/18 11:14 08/14/18 11:42 have performed a brief in-person evaluation of this patient. The patient presents with a chief complaint of: 26weeks with no PMHx present with complains of nausea, vomiting , diarrhea and worsening abdominal pains. Patient report vomited 4 times today and 3 times last night. report 3 episodes of diarrhea. Denies vaginal bleeding. report feeling baby move Pertinent physical exam findings: A&O x 3. heart RRR. lungs CTAB. Abd: mild nazia -umbilical and epigastric tenderness. normal BS diffusely I have ordered the following: nothing The patient will proceed to the labor floor for further evaluation. Discharge Disposition - Diagnosis Gastroenteritis, Nausea and vomiting during Qualifiers: Weeks of gestation: 26 weeks Qualified Code(s): Z3A.26 - 26 weeks gestation of - Discharge Dispostion Condition at time of disposition: Stable Decision to Admit order: No - Referrals - Patient Instructions - Post Discharge Activity
[2018-08-14 12:42] VITALS: BP 102/59; PULSE 87; TEMP 97.9
--- NOTE | 2018-08-14 14:04 | PDOC ---
History of Present Illness - General Chief Complaint: Diarrhea Stated Complaint: VOMITING/DIARRHEA Time Seen by Provider: 08/14/18 11:30 History Source: Patient Exam Limitations: Clinical Condition - History of Present Illness Initial Comments: 08/14/18 14:00 Patient with no significant past medical history 26 weeks present with complaint of diarrhea, vomiting, nausea, cramping abdominal pains and nasal congestion since yesterday. Patient seen earlier and evaluated on labor floor and cleared by labor and delivery. Patient reported improved abdominal pain after drinking water. Denies dizziness, weakness, headache, fever or chills. Denies any other symptoms Timing/Duration: 24 hours Past History - Past Medical History Allergies/Adverse Reactions: Allergies Allergy/AdvReac Type Severity Reaction Status Date / Time No Known Allergies Allergy Verified 08/14/18 11:18 Home Medications: Ambulatory Orders Cephalexin Monohydrate [Keflex -] 500 mg PO BID #10 capsule 06/24/18 Pnv No.95/Ferrous Fum/Folic AC [ Vitamin Tablet] 1 each PO DAILY Doxylamine Succinate/Vit B6 [Matthew Marcial 10-10 mg Tablet] 1 each PO BID PRN #20 tablet. 08/14/18 Simethicone 125 mg PO Q8H PRN #12 capsule 08/14/18 Asthma: No Cardiac Disorders: No CVA: No COPD: No DVT: No Dementia: No - Reproductive History Cervical CA: No Dysfunctional Uterine Bleeding: No Ectopic : No Endometrial CA: No Polycystic Ovaries: No Therapeutic (s) & number: No Tubal Ligation: No Spontaneous : 1 - Immunization History Immunization Up to Date: Yes - Suicide/Smoking/Psychosocial Hx Smoking History: Never smoked Have you smoked in the past 12 months: No Information on smoking cessation initiated: No Hx Alcohol Use: No Drug/Substance Use Hx: No Review of Systems - Review of Systems Able to Perform ROS?: Yes Is the patient limited Faroese proficient: No Constitutional: No: Chills, Fever, Malaise, Weakness HEENTM: Yes: Symptoms Reported, See HPI, Nose Congestion. No: Eye Pain, Blurred Vision, Tearing, Recent change in vision, Double Vision, Cataracts, Ear Pain, Ocular Prothesis, Ear Discharge, Nose Pain, Tinnitus, Nose Bleeding, Hearing Loss, Throat Pain, Throat Swelling, Mouth Pain, Dental Problems, Difficulty Swallowing, Mouth Swelling, Other Respiratory: No: Symptoms reported, See HPI, Cough, Orthopnea, Shortness of Breath, SOB with Exertion, SOB at Rest, Stridor, Wheezing, Productive cough, Hemoptysis, Other Cardiac (ROS): No: Symptoms Reported, See HPI, Chest Pain, Edema, Irregular Heart Rate, Lightheadedness, Palpitations, Syncope, Chest Tightness, Other ABD/GI: Yes: See HPI, Abdominal cramping. No: Abd. Pain w/ defecation, Blood Streaked Bowels, Constipated, Diarrhea, Difficulty Swallowing, Nausea, Poor Appetite, Rectal Bleeding, Vomiting, Indigestion, Tarry Stools : No: Burning, Frequency, Flank Pain, Urgency All Other Systems: Reviewed and Negative *Physical Exam - Vital Signs Last Vital Signs Temp Pulse Resp BP Pulse Ox 97.9 F 87 18 102/59 L 98 08/14/18 12:33 08/14/18 12:33 08/14/18 12:33 08/14/18 12:33 08/14/18 11:14 - Physical Exam Comments: 08/14/18 14:03 GENERAL: Well developed, well nourished. Awake and alert. No acute distress. HEENT: Normocephalic, atraumatic. PERRLA, EOMI. No conjunctival pallor. Sclera are non-icteric. Moist mucous membranes. Oropharynx is clear. NECK: Supple. Full ROM. CARDIOVASCULAR: Regular rate and rhythm. No murmurs, rubs, or gallops. Distal pulses are 2+ and symmetric. PULMONARY: No evidence of respiratory distress. Lungs clear to auscultation bilaterally. No wheezing, rales or rhonchi. ABDOMINAL: 26 weeks gravid abdomen.Soft. Non-tender. No rebound or guarding. No organomegaly. Normoactive bowel sounds. MUSCULOSKELETAL Normal range of motion at all joints. EXTREMITIES: No cyanosis. No clubbing. No edema. No calf tenderness. SKIN: Warm and dry. Normal capillary refill. No rashes. No jaundice. NEUROLOGICAL: Alert, awake, appropriate. Gait is normal without ataxia. PSYCHIATRIC: Cooperative. Good eye contact. Appropriate mood General Appearance: Yes: Nourished, Appropriately Dressed. No: Apparent Distress Moderate Sedation - Procedure Monitoring Vital Signs: Procedure Monitoring Vital Signs Temperature 97.9 F 08/14/18 12:33 Pulse Rate 87 08/14/18 12:33 Respiratory Rate 18 08/14/18 12:33 Blood Pressure 102/59 L 08/14/18 12:33 O2 Sat by Pulse Oximetry (%) 98 08/14/18 11:14 Medical Decision Making - Medical Decision Making 08/14/18 14:04 26 weeks with no significant past medical history sent back down from labor floor after evaluation for abdominal pain, diarrhea and vomiting. Patient in no acute distress now. Symptoms likely viral gastroenteritis. Rapid strep and rapid flu tests ordered. Patient be treated conservatively with anti-medic for nausea or vomiting if negative strep and flu. 08/14/18 14:27 Rapid Flu and strep negative. Patient stable for discharge for treatment for viral gastroenteritis with PCP follow-up. Patient advised to increase fluid intake *DC/Admit/Observation/Transfer Diagnosis at time of Disposition: Gastroenteritis, Nausea and vomiting during Qualifiers: Weeks of gestation: 26 weeks Qualified Code(s): Z3A.26 - 26 weeks gestation of - Discharge Dispostion Disposition: HOME Condition at time of disposition: Stable Decision to Admit order: No - Prescriptions Prescriptions: Doxylamine Succinate/Vit B6 [Matthew Marcial 10-10 mg Tablet] 1 each PO BID PRN #20 tablet. PRN Reason: vomiting Simethicone 125 mg PO Q8H PRN #12 capsule PRN Reason: abdominal discomfort - Referrals - Patient Instructions Printed Discharge Instructions: DI for Viral Gastroenteritis -- Adult Additional Instructions: Your strep and flu test was negative. Take medications as prescribed. increase fluid intake. Follow-up with PCP - Post Discharge Activity
== END 2018-08-14 14:29 | disposition home or self-care (01) ==
LOC: JERFT 11:12 → JER 12:58 → JERFT 12:58
DX: O26.892 Other specified pregnancy related conditions, second trimester (principal); O21.0 Mild hyperemesis gravidarum; K52.9 Noninfective gastroenteritis and colitis, unspecified; Z3A.26 26 weeks gestation of pregnancy
CPT/HCPCS: 87070; 87804; 87880; 99281-25

== ENCOUNTER 2018-09-09 12:43 | Emergency (ER) | payer OTHER ==
[2018-09-09 12:53] VITALS: BMI 27.4
[2018-09-09 13:53] VITALS: TEMP 98.2
[2018-09-09 14:30] VITALS: BP 114/50; PULSE 101
--- NOTE | 2018-09-10 09:25 | EKG ---
Test Reason : Blood Pressure : / mmHG Vent. Rate : 097 BPM Atrial Rate : 097 BPM P-R Int : 144 ms QRS Dur : 076 ms QT Int : 352 ms P-R-T Axes : 042 025 020 degrees QTc Int : 447 ms NORMAL SINUS RHYTHM NORMAL ECG NO PREVIOUS ECGS AVAILABLE Confirmed by LUDY RAMON MD ([id number]) on 09/10/2018 9:24:32 AM Referred By: Confirmed By:LUDY RAMON MD
== END 2018-09-09 14:20 | disposition home or self-care (01) ==
LOC: JER 12:43
DX: O26.893 Other specified pregnancy related conditions, third trimester (principal); R55 Syncope and collapse; Z3A.31 31 weeks gestation of pregnancy
CPT/HCPCS: 93005; 93010; 99281-25

== ENCOUNTER 2018-10-14 03:10 | Emergency (ER) | payer OTHER ==
--- NOTE | 2018-10-14 03:24 | PDOC ---
History of Present Illness - General Chief Complaint: Shortness of Breath Stated Complaint: DIFFICULTY BREATHING Time Seen by Provider: 10/14/18 03:24 - History of Present Illness Initial Comments: 10/14/18 03:29 The patient is a 23 year old 34 week female with a history of asthma who presents for evaluation of shortness of breath. The patient reports that she awoke today with shortness of breath and wheezing typical of her asthma prompting her presentation to the ED for further evaluation. She otherwise denies cough, fevers, chills, recent sick contacts, chest pain, nausea, vomiting , abdominal pain, vaginal bleeding, or changes with urination or bowel movements. Past History - Past Medical History Allergies/Adverse Reactions: Allergies Allergy/AdvReac Type Severity Reaction Status Date / Time No Known Allergies Allergy Verified 09/09/18 12:50 Home Medications: Ambulatory Orders Pnv No.95/Ferrous Fum/Folic AC [ Vitamin Tablet] 1 tab PO DAILY Albuterol Sulfate Inhaler - [Ventolin HFA Inhaler -] 1 - 2 inh PO QID #1 inhaler 10/14/18 Asthma: No Cardiac Disorders: No CVA: No COPD: No DVT: No Dementia: No - Reproductive History Cervical CA: No Dysfunctional Uterine Bleeding: No Ectopic : No Endometrial CA: No Polycystic Ovaries: No Therapeutic (s) & number: No Tubal Ligation: No Spontaneous : 1 - Immunization History Immunization Up to Date: Yes - Suicide/Smoking/Psychosocial Hx Smoking History: Never smoked Have you smoked in the past 12 months: No Information on smoking cessation initiated: No Hx Alcohol Use: No Drug/Substance Use Hx: No Review of Systems - Review of Systems Comments:: 10/14/18 03:31 Constitutional: No fevers, chills, fatigue, malaise HEENT: No Rhinorrhea, nasal congestion, visual changes Cardiovascular: No chest pain, syncope, palpitations, lightheadedness Respiratory: Shortness of breath. No Cough, Hemoptysis, Gastrointestinal: No Abdominal pain, Nausea, Vomiting, Constipation, Diarrhea, Melena Genitourinary: No Dysuria, Frequency, Urgency, Hesitancy, Hematuria, Flank pain Musculoskeletal: No Myalgia, arthralgia Skin: No rashes, itching, bruising, pallor Neurologic: No Headache, Dizziness, Numbness, Weakness, or Tingling Psychiatric: No Hallucinations. No SI or HI *Physical Exam - Vital Signs Last Vital Signs Temp Pulse Resp BP Pulse Ox 98 F 97 H 22 H 109/73 99 10/14/18 03:15 10/14/18 03:15 10/14/18 03:15 10/14/18 03:15 10/14/18 03:15 - Physical Exam Comments: 10/14/18 03:32 General Appearance: Nourished. No Apparent Distress HEENT: No Pharyngeal Erythema, Tonsillar Exudate, Tonsillar Erythema Neck: No Cervical Lymphadenopathy Respiratory/Chest: Lungs Clear, Normal Breath Sounds. End expiratory wheezing noted on exam. No Crackles, Rales, Rhonchi, Cardiovascular: Regular Rhythm, Regular Rate. No Murmur, Gallops, Rubs Gastrointestinal/Abdominal: Normal Bowel Sounds, Soft. No Guarding, Rebound, Tenderness Musculoskeletal: No CVA Tenderness Extremity: Normal Capillary Refill Integumentary: Normal Color, Dry, Warm Neurologic: Fully Oriented, Alert, Normal Mood/Affect, Normal Response, Medical Decision Making - Medical Decision Making 10/14/18 03:35 The patient is a 23 year old 34 week female with a history of asthma who presents for evaluation of shortness of breath. Given the patient's history and physical exam, it is likely the patient's symptoms are due to asthma. We will treat with duoneb and continue to monitor and reassess while here in the ED. 10/14/18 03:49 The patient refused duonebs and reports that she is asymptomatic currently and requesting discharge home. The patient appears clinically well on exam. We discussed the case with L&D and she will go up for clearance prior to discharge. We discussed the plan and return precautions with the patient who voiced understanding and is agreeable with the plan. *DC/Admit/Observation/Transfer Diagnosis at time of Disposition: Shortness of breath - Discharge Dispostion Disposition: HOME Condition at time of disposition: Stable - Prescriptions Prescriptions: Albuterol Sulfate Inhaler - [Ventolin HFA Inhaler -] 1 - 2 inh PO QID #1 inhaler - Referrals - Patient Instructions Printed Discharge Instructions: DI for Asthma -- Adult Additional Instructions: 1) Please follow-up with your primary care doctor in the next 2-3 days. Please call tomorrow to schedule a follow up appointment. If you cannot follow up with your doctor within 1 week please return to the Emergency Department for any urgent issues. 2) If you have any worsening of symptoms or any other concerns please return to the ER immediately. Return if worsening symptoms including fevers, headache, vomiting, visual or hearing disturbances, abdominal pain, chest pain, shortness of breath, syncope, dehydration, inability to take things by mouth/vomiting, altered mental status, or worsening concerning symptoms. 3) Please continue taking your home medications as directed. Your medications on discharge include Albuterol Inhaler. - Post Discharge Activity
[2018-10-14] MEDS: ALBUTEROL SO4 2.5/IPRATROPIUM 0.5 INH SOL 3 ML VIAL.NEB. NEB ONE ×2 (03:33→03:45)
[2018-10-14] MEDS ORDERED: ALBUTEROL SO4 2.5/IPRATROPIUM 0.5 INH SOL 3 ML VIAL.NEB. NEB ONE (03:35)
--- NOTE | 2018-10-14 03:50 | PDOC ---
Attending Attestation - Resident Resident Name: David Solomonel - ED Attending Attestation I have performed the following: I have examined & evaluated the patient, The case was reviewed & discussed with the resident, I agree w/resident's findings & plan - HPI HPI: 10/14/18 03:49 Pt comes for eval of asthma exacerbation. SHe is 34 weeks and she was anxious at home. - Physicial Exam PE: 10/14/18 03:49 Agree with resident exam. Minimal expiratory wheeze. - Medical Decision Making 10/14/18 03:50 We ordered asthma nebs and pt refsued them. We will send her to L+D for eval of the fetus.
[2018-10-14 04:42] VITALS: BP 120/75; PULSE 74; TEMP 99
== END 2018-10-14 04:59 | disposition home or self-care (01) ==
LOC: JER 03:10
PROC: 3E0F7GC Introduction of Other Therapeutic Substance into Respiratory Tract, Via Natural or Artificial Opening (ICD-10-PCS; principal; 2018-10-14)
DX: O26.893 Other specified pregnancy related conditions, third trimester (principal); O99.513 Diseases of the respiratory system complicating pregnancy, third trimester; J45.901 Unspecified asthma with (acute) exacerbation; Z3A.34 34 weeks gestation of pregnancy
CPT/HCPCS: 94640; 99281-25

== ENCOUNTER 2018-11-12 05:35 | Inpatient (IN) | payer OTHER ==
[2018-11-12] MEDS ORDERED: DEXTROSE 5%-LACTATED RINGERS 1,000 ML IV SCH ×3 (06:30→10:15)
[2018-11-12] MEDS ORDERED: BUTORPHANOL TARTRATE 2 MG/ML VIAL IVPB ONE (06:30)
[2018-11-12] MEDS ORDERED: PROMETHAZINE HCL 25 MG/1 ML VIAL IVPB ONE (06:30)
[2018-11-12 06:35] LABS: BASO % 0.3 % (0-2.0); EOS % 0.5 % (0-4.5); HEMATOCRIT 29.9 % (32.4-45.2); HEMOGLOBIN 9.5 GM/dL (10.7-15.3); LYMPH % 14.9 % (8-40); MCH 25.1 pg (25.7-33.7); MCHC 31.7 g/dl (32.0-36.0); MEAN CELL VOLUME 79.1 fl (80-96); MEAN PLT VOLUME 7.8 fl (7.5-11.1); MONO % 7.1 % (3.8-10.2); NEUT % 77.2 % (42.8-82.8); PLATELET COUNT 401 K/MM3 (134-434); RBC 3.78 M/mm3 (3.60-5.2); RDW 15.1 % (11.6-15.6); WHITE BLOOD COUNT 11.1 K/mm3 (4.0-10.0)
[2018-11-12 06:50] LABS: INR 0.93 (0.83-1.09)
[2018-11-12 06:53] LABS: ACTIVATED PTT 28.1 SECONDS (25.2-36.5)
[2018-11-12 06:58] LABS: CALCIUM 8.8 mg/dL (8.5-10.1); CREATININE 0.5 mg/dL (0.55-1.3)
[2018-11-12] MEDS ORDERED: OXYTOCIN 30 UNITS in 0.9% NS 30 UNIT/500 ML INFUS.BAG IVPB SCH (10:00)
[2018-11-12] MEDS ORDERED: AMPICILLIN - 2 GM in SODIUM CHLORIDE 100 ML IVPB ONE (10:00)
--- NOTE | 2018-11-12 10:08 | HP ---
Past Medical History - Primary Care Physician PCP:: Refugio Ramos - Admission Chief Complaint: 40.2 weeks. labor History of Present Illness: 23 yo f g 40.2 weeks, care in [facility] c/o contraction , cx 3 cm 80 vx -3 mi, fhr cat 1, irregular contraction History Source: Patient Limitations to Obtaining History: No Limitations - Past Medical History ...: 4 ...Para: 0 ...Term: 0 ...: 0 ...Spon : 1 ...Induced : 2 ...Multiple Gestation: 0 ...EDC by Sono: 11/10/18 Heme/Onc: Yes: Anemia - Past Surgical History Hx Myomectomy: No Hx Transabdominal Cerclage: No - Smoking History Smoking history: Never smoked Have you smoked in the past 12 months: No - Alcohol/Substance Use Hx Alcohol Use: No - Social History History of Recent Travel: No Home Medications - Allergies Allergies/Adverse Reactions: Allergies Allergy/AdvReac Type Severity Reaction Status Date / Time No Known Allergies Allergy Verified 11/12/18 07:12 - Home Medications Home Medications: Ambulatory Orders Pnv No.95/Ferrous Fum/Folic AC [ Vitamin Tablet] 1 each PO DAILY Review of Systems - Review of Systems Constitutional: reports: No Symptoms Eyes: reports: No Symptoms HENT: reports: No Symptoms Neck: reports: No Symptoms Cardiovascular: reports: No Symptoms Respiratory: reports: No Symptoms Gastrointestinal: reports: No Symptoms Genitourinary: reports: No Symptoms Breasts: reports: No Symptoms Reported Musculoskeletal: reports: No Symptoms Integumentary: reports: No Symptoms Neurological: reports: No Symptoms Endocrine: reports: Unexplained Weight Gain Hematology/Lymphatic: reports: No Symptoms Psychiatric: reports: No Symptoms Physical Exam - Maternity Vital Signs: Vital Signs Temperature 98.0 F 11/12/18 09:00 Pulse Rate 86 11/12/18 09:00 Respiratory Rate 20 11/12/18 09:00 Blood Pressure 124/72 11/12/18 09:00 O2 Sat by Pulse Oximetry (%) Constitutional: Yes: Well Nourished, No Distress, Calm Eyes: Yes: WNL, Conjunctiva Clear, EOM Intact HENT: Yes: WNL, Atraumatic, Normocephalic Neck: Yes: WNL, Supple, Trachea Midline Cardiovascular: Yes: WNL, Regular Rate and Rhythm Breast(s): Yes: WNL - Abdominal Exam/OB Fundal Height: 40 Number of Fetuses: Single Presentation: Vertex Contractions: Yes Regularity: Irregular Intensity: Mild/Mod Monitor Mode: External Heart Rate Location: [facility] Category: I Accelerations: Uniform Decelerations: None - Vaginal Exam/OB Speculum Exam: No Dilatation (cm): 3 cm Effacement (%): 80 Amniotic Membrane Status: Bulging Presentation: Vertex/Position Station: -3 - Physical Exam Musculoskeletal: Yes: WNL Extremities: Yes: WNL Edema: Yes Edema: LLE: Trace, RLE: Trace Deep Tendon Reflex Grade: Normal +2 ...Motor Strength: WNL Psychiatric: Yes: WNL - Labs Lab Results: CBC, BMP 11/12/18 06:05 11/12/18 06:05 Hemorrhage Risk Assessment - Risk Factors Medium Risk Factors: Yes: None High Risk Factors: Yes: None Risk Score: 1 Risk Level: Medium Risk Problem List - Problems (1) Postmaturity , 40-42 weeks gestation Code(s): O48.0 - POST-TERM (2) Labor established Code(s): [id number] - Assessment/Plan admit, fhm irregular contraction, pitocin risks and benfit discussed
[2018-11-12] MEDS ORDERED: AMPICILLIN SODIUM 2 GM VIAL ONE (10:10)
[2018-11-12] MEDS ORDERED: PROMETHAZINE HCL 25 MG/1 ML VIAL ONE (11:57)
[2018-11-12] MEDS ORDERED: BUTORPHANOL TARTRATE 2 MG/ML VIAL ONE (11:57)
[2018-11-12] MEDS: ELECTROLYTE-148 SOLN 1,000 ML IV SCH (12:00)
[2018-11-12] MEDS ORDERED: FENTANYL/BUPIVACAINE/NS/PF - PCEA - 50 ML DISP.SYRIN EP ONE ×2 (13:52→18:39)
[2018-11-12] MEDS ORDERED: NALOXONE HCL 0.4 MG/ML VIAL IVPUSH PRN (13:55)
[2018-11-12] MEDS ORDERED: BUPIVACAINE HCL/PF 0.25% (2.5MG/ML) 10 ML VIAL ONE (13:57)
[2018-11-12] MEDS ORDERED: LIDO 2%/EPI 1:200000 PRESRVFRE (20 ML SDVIAL) ONE (13:57)
[2018-11-12] MEDS ORDERED: FENTANYL/BUPIVACAINE/NS/PF - PCEA - 50 ML DISP.SYRIN EP SCH (14:00)
[2018-11-12] MEDS: AMPICILLIN - 1 GM in SODIUM CHLORIDE 100 ML IVPB SCH ×3 (14:15→22:00)
[2018-11-12] MEDS ORDERED: AMPICILLIN SODIUM 1 GM VIAL ONE ×3 (14:19→21:48)
[2018-11-12] MEDS ORDERED: TUBERCULIN PPD 5 TU/0.1ML SYRINGE (IN PATIENT USE ONLY) ID ONE (15:30)
--- NOTE | 2018-11-12 18:54 | PN ---
Progress Note (short form) - Note Progress Note: cx 6 cm 80 vx -2 arom, clear, fhr cat1, contraction regular Problem List - Problems (1) Postmaturity , 40-42 weeks gestation Code(s): O48.0 - POST-TERM (2) Labor established Code(s): GOT8878 -
--- NOTE | 2018-11-12 19:15 | PN ---
Progress Note (short form) - Note Progress Note: cx 7 cm , 80 vx -2 mr, had heart decel to 90 for 2 min with good return, pitocin off , lt side, o2, revaluate Problem List - Problems (1) Postmaturity , 40-42 weeks gestation Code(s): O48.0 - POST-TERM (2) Labor established Code(s): [id number] -
[2018-11-12] MEDS ORDERED: OXYTOCIN 20 UNITS in 0.9% NS 20 UNIT/1,000 ML INFUS.BAG IV ONE (23:43)
[2018-11-12] MEDS ORDERED: LIDOCAINE HCL 1% PRESERVATIVE FREE - 30ML VIAL ONE (23:43)
[2018-11-13] MEDS ORDERED: CITRIC ACID/SODIUM CITRATE 30 ML UNIT-DOSE CUP PO ONE
[2018-11-13] MEDS ORDERED: ELECTROLYTE-148 SOLN 500 ML IV ONE
--- NOTE | 2018-11-13 00:24 | PN ---
Progress Note (short form) - Note Progress Note: cx 7 cm thick ant lip,-2 with no descent, regular contraction, advised c/s, risks discussed Problem List - Problems (1) Postmaturity , 40-42 weeks gestation Code(s): O48.0 - POST-TERM (2) Labor established Code(s): [id number] -
[2018-11-13] MEDS ORDERED: LIDO 2%/EPI 1:200000 PRESRVFRE (20 ML SDVIAL) ONE (01:07)
[2018-11-13] MEDS ORDERED: ceFAZolin SODIUM 1 GM VIAL ONE (01:22)
[2018-11-13] MEDS ORDERED: OXYTOCIN 10 UNITS/ML VIAL ONE (01:30)
[2018-11-13] MEDS ORDERED: morphine SULFATE/Preservative Free 0.5 MG/ML (1cc Syringe) ONE ×3 (01:32)
[2018-11-13] MEDS ORDERED: MIDAZOLAM HCL 2 MG/2 ML SINGLE DOSE VIAL ONE (01:40)
[2018-11-13] MEDS ORDERED: MEPERIDINE HCL 50 MG/ML VIAL ONE (01:55)
[2018-11-13] MEDS ORDERED: OXYTOCIN 20 UNITS in 0.9% NS 20 UNIT/1,000 ML INFUS.BAG IV ONE (02:17)
[2018-11-13] MEDS: AMPICILLIN - 1 GM in SODIUM CHLORIDE 100 ML IVPB SCH (06:24)
[2018-11-13] MEDS ORDERED: ONDANSETRON 4 MG/2 ML VIAL IVPUSH PRN (06:37)
[2018-11-13] MEDS ORDERED: morphine SULFATE/Preservative Free 0.5 MG/ML (1cc Syringe) EP ONE (06:37)
--- NOTE | 2018-11-13 09:00 | PROC ---
Procedure Note Procedure: Anesthesia Called to evaluate patient who was ordered to have 24 hour O2 monitoring after c section. There is no monitored bed available at this time and Pt refuses to go to ICU. On physical exam pt is alert and awake. Vital signs stable O2 saturation 99% on room air. Explained the situation and will transfer her to post when family member arrives. Nurse search manager was in the room during discussion. Dr Shane aware. Instruction is given to nurse Natalee Zimmerman MD.
[2018-11-13] MEDS ORDERED: BENZOCAINE 28 GM HEMORRHOIDAL OINTMENT PR PRN (10:18)
[2018-11-13] MEDS ORDERED: BENZOCAINE 20% 57 GM BOTTLE TP PRN (10:18)
[2018-11-13] MEDS ORDERED: diphenhydrAMINE HCL 25 MG CAPSULE (FP) PO PRN (10:18)
[2018-11-13] MEDS ORDERED: METHYLERGONOVINE MALEATE 0.2 MG/1 ML AMP IM PRN (10:18)
[2018-11-13] MEDS ORDERED: WITCH HAZEL 50% (TUCKS) 40 PAD/JAR PAD TP PRN (10:18)
[2018-11-13] MEDS ORDERED: OXYTOCIN 20 UNITS in 0.9% NS 20 UNIT/1,000 ML INFUS.BAG IV SCH (10:30)
[2018-11-13] MEDS: CEFAZOLIN 1 GM/D5W 1 GM/50 ML BAG IVPB SCH ×2 (10:54→18:58)
[2018-11-13] MEDS: IBUPROFEN 800 MG/8 ML IJ IVPB PRN ×2 (12:00→18:21)
--- NOTE | 2018-11-13 12:47 | OP ---
Operative Note - Note: Operative Date: 11/13/18 Pre-Operative Diagnosis: 40.1 weeks. labor, failure to dilate and descent Operation: primary LST c/s Findings: live baby girl 9/9 , ROT, cord around neck and body Surgeon: Refugio Ramos Magnetic Tape Composer Operator: Tonny Wolf Anesthesiologist/FRINGE WEAVER: Julien Campos Anesthesia: Epidural Estimated Blood Loss (mls): 500 Drains & Tubes with Location: [facility] Operative Report Dictated: Yes
--- NOTE | 2018-11-13 14:21 | OP ---
DATE OF OPERATION: 11/13/2018 PREOPERATIVE DIAGNOSES: , 40.1 weeks' gestation, labor, failure to dilate and descend, arrest of labor. POSTOPERATIVE DIAGNOSES: , 40.1 weeks' gestation, labor, failure to dilate and descend, arrest of labor. PROCEDURE: Primary low segment transverse section. SURGEON: Mehdi Ramos MD FOCUSED FACTORY MANAGER: KIT Lynn ANESTHESIA: Epidural anesthesia; Julien Campos MD ESTIMATED BLOOD LOSS: 500 mL. FINDINGS: A live baby girl, 9 and 9, ROT position, cord around the neck and the body once. OPERATION: The patient was taken to the operating room and had adequate epidural anesthesia. Abdomen and perineum were prepped and draped. Pfannenstiel abdominal skin incision was made. Abdominal wall was cut [id number]. Anterior peritoneum was exposed and incised. Upon entering the abdominal cavity, lower uterine segment was identified and uterovesical fold of peritoneum established. Bladder was pushed down. A low transverse uterine incision was made. Amniotic sac was entered. Clear fluid. Head delivered from right occiput transverse position. Nasopharynx was suctioned. Cord around the neck x1 reduced and then also cord around the body x1. Baby was delivered without any difficulty. Placenta was delivered manually. Uterine cavity was cleaned of all remaining tissue. Uterine incision was closed in 2 layers, first layer with 0 Biosyn continuous suture, the second layer with 0 Biosyn imbricating the first layer. Bladder flap was closed with 0 Biosyn continuous suture. Both tubes and ovaries were checked were normal. No active bleeding was seen. All the lap pad, sponge, and instrument counts were correct. Then, peritoneum was closed with 0 Biosyn continuous suture. Muscle was brought together with interrupted suture of 0 Biosyn. Fascia was closed with 0 Biosyn continuous suture, subcutaneous fat with interrupted suture of 0 Biosyn, and the skin was closed with harriet. Patient tolerated procedure well. Left the OR in good condition. MEHDI RAMOS M.D. /[id number]
[2018-11-14] MEDS: ELECTROLYTE-148 SOLN 1,000 ML IV SCH ×2 (00:41→00:42)
[2018-11-14] MEDS: DEXTROSE 5%-LACTATED RINGERS 1,000 ML IV SCH ×2 (00:44→04:24)
[2018-11-14] MEDS: IBUPROFEN 600 MG TABLET (FP) PO PRN ×5 (01:29→19:36)
[2018-11-14] MEDS: SIMETHICONE 80 MG TAB.CHEW (FP) PO PRN ×5 (01:29→19:35)
[2018-11-14] MEDS: oxyCODONE HCL 5 MG TABLET PO PRN ×3 (01:30→10:29)
[2018-11-14 08:14] LABS: BASO % 0.1 % (0-2.0); EOS % 0.2 % (0-4.5); HEMATOCRIT 27.9 % (32.4-45.2); LYMPH % 7.6 % (8-40); MCH 25.3 pg (25.7-33.7); MCHC 32.1 g/dl (32.0-36.0); MEAN CELL VOLUME 78.8 fl (80-96); MEAN PLT VOLUME 7.8 fl (7.5-11.1); MONO % 7.3 % (3.8-10.2); NEUT % 84.8 % (42.8-82.8); PLATELET COUNT 344 K/MM3 (134-434); RBC 3.54 M/mm3 (3.60-5.2); RDW 15.5 % (11.6-15.6); WHITE BLOOD COUNT 17.5 K/mm3 (4.0-10.0)
--- NOTE | 2018-11-14 09:46 | PN ---
Post Progress Note - Subjective Subjective: Doing well. Pain controlled. No fevers/chills Type of Delivery: Primary C/S Vital Signs: Vital Signs Temperature 98.3 F 11/14/18 07:50 Pulse Rate 82 11/14/18 07:50 Respiratory Rate 18 11/14/18 07:50 Blood Pressure 116/70 11/14/18 07:50 O2 Sat by Pulse Oximetry (%) 99 11/13/18 09:30 Uterus: Yes: Fundus @ umbilicus Incision: Yes: Dressing dry and intact Abdomen/GI: Yes: Abdomen soft, Tolerating PO Lochia: Yes: Rubra Lochia, amount: Small Extremities: Yes: Calves non-tender Perineum: Yes: Intact Activity: Ambulating - Labs Labs: CBC WBC 17.5 K/mm3 (4.0-10.0) H 11/14/18 07:15 RBC 3.54 M/mm3 (3.60-5.2) L 11/14/18 07:15 Hgb 9.0 GM/dL (10.7-15.3) L 11/14/18 07:15 Hct 27.9 % (32.4-45.2) L 11/14/18 07:15 MCV 78.8 fl (80-96) L 11/14/18 07:15 MCH 25.3 pg (25.7-33.7) L 11/14/18 07:15 MCHC 32.1 g/dl (32.0-36.0) 11/14/18 07:15 RDW 15.5 % (11.6-15.6) 11/14/18 07:15 Plt Count 344 K/MM3 (134-434) 11/14/18 07:15 MPV 7.8 fl (7.5-11.1) 11/14/18 07:15 Absolute Neuts (auto) 14.9 K/mm3 (1.5-8.0) H 11/14/18 07:15 Neutrophils % 84.8 % (42.8-82.8) H 11/14/18 07:15 Lymphocytes % 7.6 % (8-40) L D 11/14/18 07:15 Monocytes % 7.3 % (3.8-10.2) 11/14/18 07:15 Eosinophils % 0.2 % (0-4.5) 11/14/18 07:15 Basophils % 0.1 % (0-2.0) 11/14/18 07:15 Nucleated RBC % 0 % (0-0) 11/14/18 07:15 Assessment/Plan 23yo s/p PLTCS, POD#1 Routine PP care Labs reviewed Vitals reviewed, wnl Po pain control Anticipate d/c to home by POD#4 Bill Ortez MD
[2018-11-14] MEDS ORDERED: DIPHTH,PERTUSS(ACELL),TET 0.5 ML DISP.SYRIN IM ONE (10:05)
[2018-11-14] MEDS ORDERED: BISACODYL 10 MG SUPP.RECT PR PRN (10:18)
[2018-11-14] MEDS: ENOXAPARIN NA (PORCINE) 40 MG/0.4 ML DISP.SYRIN SQ SCH (10:31)
--- NOTE | 2018-11-14 11:00 | PN ---
Progress Note (short form) - Note Progress Note: Anesthesia POD#1 S/P under Epidural A and Duramoph VSS,bearable pain,no N/V,legs strength is back. No complications seen. Arelis Haji MD.
[2018-11-14] MEDS: ACETAMINOPHEN 325 MG TABLET (FP) PO PRN ×2 (15:01→19:35)
[2018-11-15] MEDS: ACETAMINOPHEN 325 MG TABLET (FP) PO PRN ×5 (00:26→22:01)
[2018-11-15] MEDS: SIMETHICONE 80 MG TAB.CHEW (FP) PO PRN ×2 (00:26→06:02)
[2018-11-15] MEDS: IBUPROFEN 600 MG TABLET (FP) PO PRN ×5 (00:27→22:02)
[2018-11-15] MEDS: oxyCODONE HCL 5 MG TABLET PO PRN ×2 (02:19→08:40)
--- NOTE | 2018-11-15 08:11 | PN ---
Progress Note (short form) - Note Progress Note: pod 2 s/p c/s . doing well, passing gas CBC, BMP 11/14/18 07:15 11/12/18 06:05 Last Vital Signs Temp Pulse Resp BP Pulse Ox 98.8 F 96 H 18 114/81 99 11/14/18 22:00 11/14/18 22:00 11/14/18 22:00 11/14/18 22:00 11/13/18 09:30 abdomen soft, no distension , no cva incision dry, clean , healing well no calf tenderness no excess vaginal bleeding plan ambulate , cbc pain management Problem List - Problems (1) Postmaturity , 40-42 weeks gestation Code(s): O48.0 - POST-TERM (2) Labor established Code(s): [id number] -
[2018-11-15] MEDS: ENOXAPARIN NA (PORCINE) 40 MG/0.4 ML DISP.SYRIN SQ SCH (09:30)
[2018-11-15] MEDS ORDERED: SENNOSIDES/DOCUSATE COMBO (SENNA PLUS) TABLET (UD) PO PRN (22:00)
[2018-11-16] MEDS: oxyCODONE HCL 5 MG TABLET PO PRN (01:10)
--- NOTE | 2018-11-16 06:12 | PN ---
Post Progress Note - Subjective Subjective: minmal pain. tolerating po Post Day: 3 Type of Delivery: Primary C/S Vital Signs: Vital Signs Temperature 98.6 F 11/15/18 22:00 Pulse Rate 94 H 11/15/18 22:00 Respiratory Rate 18 11/15/18 22:00 Blood Pressure 125/70 11/15/18 22:00 O2 Sat by Pulse Oximetry (%) 99 11/13/18 09:30 Breast Exam: Yes: Soft Uterus: Yes: Fundus Firm Abdomen/GI: Yes: Abdomen soft Lochia: Yes: Rubra Lochia, amount: Small Extremities: Yes: Calves non-tender Perineum: Yes: Intact Activity: Ambulating - Labs Labs: CBC WBC 17.5 K/mm3 (4.0-10.0) H 11/14/18 07:15 RBC 3.54 M/mm3 (3.60-5.2) L 11/14/18 07:15 Hgb 9.0 GM/dL (10.7-15.3) L 11/14/18 07:15 Hct 27.9 % (32.4-45.2) L 11/14/18 07:15 MCV 78.8 fl (80-96) L 11/14/18 07:15 MCH 25.3 pg (25.7-33.7) L 11/14/18 07:15 MCHC 32.1 g/dl (32.0-36.0) 11/14/18 07:15 RDW 15.5 % (11.6-15.6) 11/14/18 07:15 Plt Count 344 K/MM3 (134-434) 11/14/18 07:15 MPV 7.8 fl (7.5-11.1) 11/14/18 07:15 Absolute Neuts (auto) 14.9 K/mm3 (1.5-8.0) H 11/14/18 07:15 Neutrophils % 84.8 % (42.8-82.8) H 11/14/18 07:15 Lymphocytes % 7.6 % (8-40) L D 11/14/18 07:15 Monocytes % 7.3 % (3.8-10.2) 11/14/18 07:15 Eosinophils % 0.2 % (0-4.5) 11/14/18 07:15 Basophils % 0.1 % (0-2.0) 11/14/18 07:15 Nucleated RBC % 0 % (0-0) 11/14/18 07:15 Assessment/Plan reg diet oob pain control
[2018-11-16 07:33] LABS: BASO % 0.4 % (0-2.0); EOS % 2.9 % (0-4.5); HEMATOCRIT 26.5 % (32.4-45.2); HEMOGLOBIN 8.7 GM/dL (10.7-15.3); LYMPH % 19.4 % (8-40); MCH 25.9 pg (25.7-33.7); MEAN CELL VOLUME 78.4 fl (80-96); MEAN PLT VOLUME 7.9 fl (7.5-11.1); MONO % 6.6 % (3.8-10.2); NEUT % 70.7 % (42.8-82.8); PLATELET COUNT 363 K/MM3 (134-434); RBC 3.37 M/mm3 (3.60-5.2); RDW 15.9 % (11.6-15.6); WHITE BLOOD COUNT 10.4 K/mm3 (4.0-10.0)
[2018-11-16] MEDS: ENOXAPARIN NA (PORCINE) 40 MG/0.4 ML DISP.SYRIN SQ SCH (10:00)
[2018-11-16] MEDS: ACETAMINOPHEN 325 MG TABLET (FP) PO PRN ×2 (10:55→15:09)
[2018-11-16] MEDS: IBUPROFEN 600 MG TABLET (FP) PO PRN ×3 (10:55→20:13)
[2018-11-16] MEDS: SIMETHICONE 80 MG TAB.CHEW (FP) PO PRN ×3 (10:56→20:13)
[2018-11-16] MEDS ORDERED: oxyCODONE HCL 5 MG TABLET PO PRN (20:00)
[2018-11-17] MEDS: SIMETHICONE 80 MG TAB.CHEW (FP) PO PRN ×2 (00:46→10:47)
[2018-11-17] MEDS: IBUPROFEN 600 MG TABLET (FP) PO PRN ×2 (00:46→10:46)
[2018-11-17] MEDS: ACETAMINOPHEN 325 MG TABLET (FP) PO PRN ×2 (00:48→10:47)
[2018-11-17] MEDS: ENOXAPARIN NA (PORCINE) 40 MG/0.4 ML DISP.SYRIN SQ SCH (09:56)
[2018-11-17 13:32] VITALS: BP 126/81; PULSE 76; TEMP 98.3
--- NOTE | 2018-11-18 17:21 | PATH ---
Surgical Pathology Report Patient Name: MANI MORAES [facility]. Rec. #: [id number] /Age/Gender: 1995 (Age: 23) / F Account: [id number] Location: [facility] OBS/YOKE SETTER Taken: 11/13/2018 Received: 11/13/2018 Reported: 11/18/2018 Physicians: Refugio Ramos M.D. Specimen(s) Received PLACENTA Clinical History , history of asthma, 2 VTOP, 1 SPAB, AFP +1 Final Diagnosis PLACENTA: THIRD TRIMESTER PLACENTA. TRIVASCULAR CORD. MEMBRANES WITH NO DIAGNOSTIC ABNORMALITIES. Electronically Signed Triny Cedeno M.D. Gross Description The specimen is received fresh labeled placenta and is a 581 gram, 20.0 x 17.5 x 2.7 cm. placenta with attached membranes and umbilical cord. The attached membranes are hernandez, thick, cloudy and insert marginally. The umbilical cord measures 11 cm. in length and averages 1.0 cm. in diameter. The cord inserts eccentrically, 3.5 cm. to the nearest margin. No true knots or strictures are identified. Cut surface of the umbilical cord reveals 3 vessels. The surface is martin-blue with minimal fibrin deposition and appropriate caliber vessels. The maternal surface is red-brown with focal defects. Sectioning reveals a No lesions are identified. Tray Room Worker sections are submitted in three cassettes as follows: 1- membrane rolls and umbilical cord; 2-3- full thickness sections of placenta. /11/15/2018 [facility]11/15/2018
--- NOTE | 2018-11-18 20:45 | DS ---
Physical Exam-CAPITAL PROJECT ENGINEER Vital Signs: Vital Signs Temperature 98.3 F 11/17/18 10:00 Pulse Rate 76 11/17/18 10:00 Respiratory Rate 20 11/17/18 10:00 Blood Pressure 126/81 11/17/18 10:00 O2 Sat by Pulse Oximetry (%) 99 11/16/18 09:00 Constitutional: Yes: Well Nourished, No Distress, Calm Eyes: Yes: WNL, Conjunctiva Clear, EOM Intact HENT: Yes: WNL, Atraumatic, Normocephalic Neck: Yes: WNL, Supple, Trachea Midline Cardiovascular: Yes: WNL, Regular Rate and Rhythm Respiratory: Yes: WNL, Regular, CTA Bilaterally Gastrointestinal: Yes: WNL ...Rectal Exam: Yes: WNL Renal/: Yes: WNL ....Post : Yes: Uterus firm, Uterus non-tender, Slight lochia rubra Breast(s): Yes: WNL Musculoskeletal: Yes: WNL Extremities: Yes: WNL Edema: No Integumentary: Yes: WNL Wound/Incision: Yes: Clean/Dry, Well Approximated, [place] Intact Neurological: Yes: WNL, Alert, Oriented ...Motor Strength: WNL Psychiatric: Yes: WNL, Alert, Oriented Labs: CBC, BMP 11/16/18 06:50 11/12/18 06:05 Delivery - Delivery Section: Primary, Low Flap Transverse (no complication) Type of Anesthesia: Epidural Episiotomy/Laceration: None EBL (cc): 500 Delivery, Single - Stages of Labor Date 1st Stage Initiatied: 11/12/18 Time 1st Stage Initiated: 12:00 Date of Delivery: 11/13/18 Time of Delivery: 01:32 Time Placenta Delivered: 01:33 Placenta: Yes: Expressed - Condition of Florist Designer/Merchant Banker Present: No Infant Gender: Female Weight: 7 lb 7 oz Position: Right, OT Total Hours ROM (Hrs/Mins): 6 hours 48 min - 1 Minute Total Score: 8 5 Minutes Total Score: 9 - Feeding Plan Initial Plan: Elected not to breastfeed exclusively throughout hospitalization Discharge Summary Reason For Visit: LABOR ADMIT Procedures: Principal: primary LST c/s Hospital Course: no complication Condition: Stable - Instructions Diet, Activity, Other Instructions: Regular Diet Follow up in 2 weeks for an incision check Referrals: Refugio Ramos MD [Staff Physician] - Disposition: HOME - Home Medications Comprehensive Discharge Medication List: Ambulatory Orders Pnv No.95/Ferrous Fum/Folic AC [ Vitamin Tablet] 1 each PO DAILY
== END 2018-11-17 14:20 | disposition home or self-care (01) | DRG 540 ==
LOC: JDEL 05:35 → JLDR 05:45 → J3W 11-13 10:00
PROVIDERS: ADMIT Obstetrics & Gynecology; ATTEND Obstetrics & Gynecology
PROC: 10D00Z1 Extraction of Products of Conception, Low, Open Approach (ICD-10-PCS; principal; 2018-11-13)
DX: O48.0 Post-term pregnancy (principal); O62.0 Primary inadequate contractions; O69.81X0 Labor and delivery complicated by cord around neck, without compression, not applicable or unspecified; O62.1 Secondary uterine inertia; Z3A.40 40 weeks gestation of pregnancy; Z37.0 Single live birth
CPT/HCPCS: 36415; 80048; 85025; 85610; 85730; 86593; 86850; 86900; 86901; 87389; 88307-TC; 90715; J2175

== ENCOUNTER 2020-03-18 22:01 | Emergency (ER) | payer OTHER ==
[2020-03-18 22:08] VITALS: BP 117/64; TEMP 98.5; BMI 25.3
--- NOTE | 2020-03-18 22:48 | PDOC ---
Documentation entered by Kimberly Morrison SCRIBE, acting as scribe for Madison Jorgensen DO. Madison Jorgensen, DO: This documentation has been prepared by the Tamiko dennis Brenda, SCRIBE, under my direction and personally reviewed by me in its entirety. I confirm that the documentation accurately reflects all work, treatment, procedures, and medical decision making performed by me. Attending Attestation - Resident Resident Name: MabelalirioRicky - ED Attending Attestation I have performed the following: I have examined & evaluated the patient, The case was reviewed & discussed with the resident, I agree w/resident's findings & plan, Exceptions are as noted - HPI HPI: 03/18/20 22:31 The patient is a 25 year old female with a significant PMH of asthma who presents to the ED for evaluation of panic attack. Patient notes that she had an argument with her mother, at which time she began to feel chest tightness. Her told her that she could from it, so she began to have a panic attack with symtpoms of hand tingling and hyperventilation so she called 911. Allergies: NKA - Physicial Exam PE: 03/18/20 22:31 GENERAL: Anxious appearing. Awake, alert, and fully oriented, in no acute distress NECK: Normal ROM, supple, no lymphadenopathy, JVD, or masses LUNGS: Breath sounds equal, clear to auscultation bilaterally. No wheezes, and no crackles HEART: Regular rate and rhythm, normal S1 and S2, no murmurs, rubs or gallops ABDOMEN: Soft, nontender, normoactive bowel sounds. No guarding, no rebound. No masses EXTREMITIES: Normal range of motion, no edema. No clubbing or cyanosis. No cords, erythema, or tenderness NEUROLOGICAL: Cranial nerves II through XII grossly intact. Normal speech, normal gait SKIN: Warm, Dry, normal turgor, no rashes or lesions noted. - Medical Decision Making 03/18/20 22:47 a/p: 25yo female with atypical cp -cp after arguing with her mother and then had a panic attack -symptoms resolving -no pleuritic component -ekg, cxr -no wheezing -pt appears anxious -will monitor and reassess 03/18/20 22:48 cxr clear 03/18/20 23:22 pt feels better stable for dc to home Heart Score/ECG Review - ECG Intrepretation Comment:: 03/18/20 22:48 sinus at 74, nl axis, nl interval, no acute st/t wave findings Discharge - Discharge Information Problems reviewed: Yes Clinical Impression/Diagnosis: Acute stress reaction, Atypical chest pain Condition: Stable Disposition: HOME - Admission No - Follow up/Referral - Patient Discharge Instructions Patient Printed Discharge Instructions: DI for Atypical Chest Pain Additional Instructions: You were seen in the ER for chest pain. Your chest x-ray and EKG were normal. Follow up with your primary care physician as soon as possible, in the next 5-7 days. Return to the ER if you develop worsening chest pain, difficulty breathing , weakness, or high fevers. - Post Discharge Activity
--- NOTE | 2020-03-18 22:56 | PDOC ---
History of Present Illness - General Chief Complaint: Chest Pain Stated Complaint: ANXIETY Time Seen by Provider: 03/18/20 22:14 History Source: Patient - History of Present Illness Initial Comments: 03/18/20 22:51 25F w/no PMH p/w one day of acute onset chest pain. She reports having an argument with her mother, and during the argument beginning to have stabbing nonradiating nonpleuritic sternal chest pain. She reports tingling in her fingers, and a brief episode of mild sob. She reports that all symptoms resolved spontaneously, but was encouraged to seek evaluation by her . She denies any ongoing symptoms. Past History - Medical History Allergies/Adverse Reactions: Allergies Allergy/AdvReac Type Severity Reaction Status Date / Time No Known Allergies Allergy Verified 11/12/18 07:12 Home Medications: Ambulatory Orders Pnv No.95/Ferrous Fum/Folic AC [ Vitamin Tablet] 1 each PO DAILY 10/20/18 Asthma: Yes (last attack 1 month ago) Cancer: No Cardiac Disorders: No CVA: No COPD: No DVT: No Dementia: No Diabetes: No HTN: No Seizures: No Thyroid Disease: No - Reproductive History Is Patient Now?: No Cervical CA: No Dysfunctional Uterine Bleeding: No Ectopic : No Endometrial CA: No Polycystic Ovaries: No Therapeutic (s) & number: No Tubal Ligation: No Spontaneous : 1 - Immunization History Immunization Up to Date: Yes - Psycho-Social/Smoking History Smoking History: Current every day smoker Have you smoked in the past 12 months: No Number of Cigarettes Smoked Daily: 2 Information on smoking cessation initiated: No - Substance Abuse Hx (Audit-C & DAST Scrn) How often the patient has a drink containing alcohol: Monthly or less How often the patient has six or more drinks on one occasion: Less than monthly Score: In Men: 4 or > Positive; In Women: 3 or > Positive: 2 Screen Result (Pos requires Nsg. Audit-10AR): Negative In the last yr the pt used illegal drug/Rx for NonMed reason: No Score: Yes response is considered Positive: 0 Screen Result (Positive result requires Nsg. DAST-10): Negative Review of Systems - Review of Systems Able to Perform ROS?: Yes Comments:: 03/18/20 22:53 GENERAL/CONSTITUTIONAL: No fever or chills. No weakness. HEAD, EYES, EARS, NOSE AND THROAT: No change in vision. No ear pain or discharge. No sore throat. CARDIOVASCULAR: No chest pain or shortness of breath RESPIRATORY: No cough, wheezing, or hemoptysis. GASTROINTESTINAL: No nausea, vomiting, diarrhea or constipation. GENITOURINARY: No dysuria, frequency, or change in urination. MUSCULOSKELETAL: No joint or muscle swelling or pain. No neck or back pain. SKIN: No rash NEUROLOGIC: No headache, vertigo, loss of consciousness, or change in strength/sensation. ENDOCRINE: No increased thirst. No abnormal weight change HEMATOLOGIC/LYMPHATIC: No anemia, easy bleeding, or history of blood clots. ALLERGIC/IMMUNOLOGIC: No hives or skin allergy. *Physical Exam - Vital Signs Last Vital Signs Temp Pulse Resp BP Pulse Ox 98.5 F 83 19 117/64 99 03/18/20 22:04 03/18/20 22:04 03/18/20 22:04 03/18/20 22:04 03/18/20 22:04 - Physical Exam 03/18/20 22:53 GENERAL: Awake, alert, and fully oriented, in no acute distress HEAD: No signs of trauma, normocephalic, atraumatic EYES: PERRLA, EOMI, sclera anicteric, conjunctiva clear ENT: Auricles normal inspection, hearing grossly normal, nares patent, oropharynx clear without exudates. Moist mucosa NECK: Normal ROM, supple, no lymphadenopathy, JVD, or masses LUNGS: No distress, speaks full sentences, clear to auscultation bilaterally HEART: Regular rate and rhythm, normal S1 and S2, no murmurs, rubs or gallops, peripheral pulses normal and equal bilaterally. ABDOMEN: Soft, nontender, normoactive bowel sounds. No guarding, no rebound. No masses EXTREMITIES : Normal inspection, Normal range of motion, no edema. No clubbing or cyanosis NEUROLOGICAL: Cranial nerves II through XII grossly intact. Normal speech, normal gait, no focal sensorimotor deficits SKIN: Warm, Dry, normal turgor, no rashes or lesions noted ED Treatment Course - RADIOLOGY Radiology Studies Ordered: Category Date Time Status CXR [CHEST PA & LAT] [RAD] Stat Radiology 03/18/20 22:31 Taken Medical Decision Making - Medical Decision Making 03/18/20 22:54 25F w/no PMH p/w episode of chest pain s/p argument with mother alongside mild sob and bilateral hand paresthesias, most consistent with anxiety/stress reaction. Cardiac chest pain unlikely given lack of risk factors, age, and presence of paresthesias with sob that simultaneously resolved spontaneously after stressor was removed. Plan: EKG CXR Dispo: Discharge --- EKG - NSR, normal axis, no abnormal t wave inversions, QRS 74, QTc 428 Plan for discharge with close PCP follow up Discharge - Discharge Information Problems reviewed: Yes Clinical Impression/Diagnosis: Chest pain Condition: Stable Disposition: HOME - Admission No - Follow up/Referral - Patient Discharge Instructions Patient Printed Discharge Instructions: DI for Atypical Chest Pain Additional Instructions: You were seen in the ER for chest pain. Your chest x-ray and EKG were normal. Follow up with your primary care physician as soon as possible, in the next 5-7 days. Return to the ER if you develop worsening chest pain, difficulty breathing, weakness, or high fevers. - Post Discharge Activity
[2020-03-18 23:35] VITALS: PULSE 80
--- OUTSIDE RECORDS SUMMARY | 2020-03-19 04:38 | XMS ---
:1995 Author Organization [facility] Care Team Providers Name Role Phone NOE CNM, SUSAN Unavailable NOE CNM, SUSAN Unavailable LONG CNM, RACHEAL Unavailable LONG CNM, RACHEAL Unavailable LONG CNM, RACHEAL Unavailable LONG CNM, RACHEAL Unavailable NICOLE MYRIAM Unavailable Unavailable Ashely Duong Unavailable PADMA BARNHART, LALO Unavailable PADMA BARNHART, LALO Unavailable PADMA BARNHART, LALO Unavailable ARIAN BARNHART, DEVIKA Unavailable ARIAN BARNHART, DEVIKA Unavailable ARIAN BARNHART, DEVIKA Unavailable ARIAN BARNHART, DEVIKA Unavailable + ARIAN BARNHART, DEVIKA Unavailable + ARIAN BARNHART, DEVIKA Unavailable + GEOVANY BARNHART, DEBORAH Unavailable + GEOVANY BARNHART, DEBORAH Unavailable + HARRIET BARNHARTMARIANA Unavailable + Manan Laurent MD Unavailable Unavailable LovigManan MD Unavailable Unavailable Lovig, Manan Unavailable Unavailable Lovig, Manan Unavailable Unavailable Lovig, Manan MD Unavailable Unavailable PADMA BARNHART LALO Unavailable + PADMA BARNHART LALO Unavailable Re-disclosure Warning The records that you are about to access may contain information from federally- assisted alcohol or drug abuse programs. If such information is present, then the following federally mandated warning applies: This information has been disclosed to you from records protected by federal confidentiality rules (42 CFR part 2). The federal rules prohibit you from making any further disclosure of this information unless further disclosure is expressly permitted by the written consent of the person to whom it pertains or as otherwise permitted by 42 CFR part 2. A general authorization for the release of medical or other information is NOT sufficient for this purpose. The Federal rules restrict any use of the information to criminally investigate or prosecute any alcohol or drug abuse patient.The records that you are about to access may contain highly sensitive health information, the redisclosure of which is protected by Article 27-F of the [facility] Public Health law. If you continue you may haveaccess to information: Regarding HIV / AIDS; Provided by facilities licensed or operated by the [facility] Office of Mental Health; or Provided by the [facility] Office for People With Developmental Disabilities. If such information is present, then the following [facility] mandated warning applies: This information has been disclosed to you from confidential records which are protected by state law. State law prohibits you from making any further disclosure of this information without the specific written consent of the person to whom it pertains, or as otherwise permitted by law. Any unauthorized further disclosure in violation of state law may result in a fine or mcfp sentence or both. A general authorization for the release of medical or other information is NOT sufficient authorization for further disclosure. Allergies and Adverse Reactions Type Description Substance Reaction Status Data Source(s ) Propensity to Propensity to No Allergy NEXTGEN ([place] adverse reactions adverse reactions Information [facility] (disorder) (disorder) Available [facility] ) Encounters Encounter Providers Location Date Indications Data Source(s) Outpatient< Attender: 07/11 [facility] (Alexis Gutierres ID="encount LONG CNM 02:34 Neighborhood erTypeDescr :00 Health iptionID0"> PM Center) *Chart EST - Update*</td 07/11 ><td> LLE RAEGAN 11:59 CNM</td><td :00 > PM EST </td><td></t d><td></td> Outpatient< Attender: Tess 01/01 [facility] (Alexis Gutierres ID="[facility] Health 10:30 Neighborhood erTypeDes CNM Center :00 Health iptionID1"> AM Center) POST EDT - VISIT</td>< 01/01 td> NOE 11:16 CNM</td><td :54 [facility]</td> <td> 019</td><td ></td> Outpatient Doctor Phillips 11/21 eC3 ([address] 12:00 Care) Clinic A28 :00 AM EDT - 11/21 12:00 :00 AM EDT Outpatient< Attender: 11/13 [facility] ([facility] CELISS 11:35 Neighborhood erTypeDescr CNM :00 Health iptionID2"> AM Center) [Patient EDT - Encounter]< 11/13 /td><td> [place] 11:59 CNM</td><td :00 > PM EDT </td><td></t d><td></td> Outpatient< Attender: Tess 11/08 [facility] (Alexis Gutierres [facility] 02:30 [facility] :00 Health iptionID3"> PM Center) [place]</td EDT - ><td>SUSAN 11/08 CNM</td><td 04:02 >[place] :05 [facility] EDT Center</td> <td> 019</td><td ></td> Outpatient< Attender: 11/07 [facility] (Alexis Gutierres ID="amena [facility] 01:22 [facility] CNM :00 Health iptionID4"> PM Center) [Patient EDT - Encounter]< 11/07 /td><td> [place] LI[place] 11:59 CNM</td><td :00 > PM EDT </td><td></t d><td></td> Outpatient< Attender: Tess 10/29 [facility] ([place] ID="[facility] 04:00 [facility] CN Center :00 Health iptionID5"> PM Center) WALK[place]</td EDT - ><td>SUSAN 10/29 CNM</td><td 04:02 >[place] :33 [facility] EDT Center</td> <td> 019</td><td ></td> Outpatient< Attender: Tess 10/29 [facility] (Alexis Gutierres ID="amena LARIOS MD Health 02:30 [facility] Center :00 Health iptionID6"> PM Center) Regular EDT - Sonogram</t 14 d><td> HARRIET 04:12 MD</td><td> [facility]</td> <td> 019</td><td ></td> Outpatient< Attender: Tess 10/17 [facility] (Alexis Gutierres [facility] NOE [facility] 12:00 Neighborhood [facility] CN Center :00 Health iptionID8"> PM Center) WALKINS</td EDT - ><td>[facility] 10/17 CNM</td><td 01:35 >[place] :17 [facility] EDT Center</td> <td> 019</td><td ></td> Outpatient< Attender: Tess 10/17 [facility] (Alexis Gutierres ID="amena ARMENTA MD Health 12:00 Neighborhood [facility] Center :00 Health iptionID7"> PM Center) EKG</td><td EDT - >[place] 10/17 ARMENTA </td><td> 11:59 [place] :00 [facility] EDT Center</td> <td> 019</td><td ></td> Outpatient< Attender: 10/11 [facility] (Alexis Gutierres [facility] LIU 02:42 Neighborhood erTypeDes CNM :00 Health iptionID9"> PM Center) [Patient EDT - Encounter]< 10/11 /td><td> [place] 11:59 CNM</td><td :00 > PM EDT </td><td></t d><td></td> Outpatient< Attender: 10/11 [facility] (Alexis Gutierres ID[facility] LIU 02:39 Neighborhood erTypeDescr CNM :00 Health [id number]" PM Center) >[Patient EDT - Encounter]< 10/11 /td><td> [place] 11:59 CNM</td><td :00 > PM EDT </td><td></t d><td></td> Outpatient< Attender: Tess 10/10 [facility] ([place] ID="[facility] Health 12:00 [facility] Center :00 Health [id number]" PM Center) >[place]ALKINS</t EDT - d><td>AUDRE 10/10 CNM</td><td 11:50 >[place] :21 [facility] AM Health EDT Center</td> <td> 019</td><td ></td> Emergency H 09/29 [facility] Medical 08:03 Center :00 PM EDT Outpatient< Attender: Tess 09/[address] [facility] PregnancyPregnancyPregnan cyPregnancy ([place] ID="amena ROUSE MD Health 10:30 PregnancyPregnancyPregna [facility] erTypeDescr Center :00 Health [id number]" AM Center) >[place]ALK[place]</t EDT - d><td>[facility] 09/09 JEANNETTE ROUSE </td><td> 12:33 [place] :40 [facility] EDT Center</td> <td></td><td ><content ID="encount erDiagnosis ID12-0">Pre gnancy</con tent></td> Outpatient<td Attender: Tess 08/26/2018 ZEESHAN ID="pz[id number]">[place]</td><td>[facility] 11:00:00 AM ([facility] CNM</td><td>[facility] ED T - Neighborhood Center</td><td>08/26/2018</td><td></td> CN Center 019 Health 12:51:00 PM Center) EDT Outpatient<td Attender: Tess 08/12/2018 ZEESHAN ID="[id number]">[place]</td><td>[facility] 10:15:00 AM ([facility]</td><td>[facility]</td><td>08/12/2018</td><td></td> CN Center 019 Health 10:09:24 AM Center) EST Outpatient<td Attender: Tess 08/09/2018 ZEESHAN ID="[id number]">[place]</td><td>[facility] 12:00:00 PM ([facility]</td><td>[facility]</td><td>08/09/2018</td><td></td> CN Center Health 11:49:34 AM Center) EST Outpatient<td Attender: Tess 07/29/2018 ZEESHAN ID="np[id number]">[place]ALK[place]</td><td>[facility] 11:00:00 AM ([facility]</td><td>[facility]</td><td>07/29/2018</td><td></td> CN Center Health 11:16:49 AM Center) EST Outpatient<td ID="[id number]">[Patient Attender: 07/23/2018 ZEESHAN Encounter]</td><td>SUSAN [facility]</td><td> SUSAN 03:27:00 PM ([place] </td><td>07/23/2018</td><td></td> [facility] 07/23/2018 Health 11:59:00 PM Center) EST Outpatient Attender: 07/18/2018 NICHOLAS Laurent 10:30:00 AM ([facility] PADMA BARNHART [facility]) Attender: 07/18/2018 NICHOLAS Laurent 10:30:00 AM ([place] [facility]) Outpatient<td ID="[id number]">Regular Attender : Tess 07/09/2018 ZEESHAN Sonogram</td><td>MARIANA LARIOS MD</td><td>[facility] 02:30:00 PM ([facility]</td><td>07/09/2018</td><td></td> HARRIET BARNHART [facility] 07/09/2018 Health 04:09:59 PM Center) EST Outpatient<td ID="[id number]"> Attende r: Tess 07/03/2018 ZEESHAN FOLLOW UP</td><td>[facility]</td><td>[facility] 01:30[facility] PM ([facility]</td><td>07/03/2018</td><td></td> NOE [facility] 07/03/2018 Health 02:44:22 PM Center) EST Outpatient<td ID="[id number]">PATIENT Attender : Tess 06/21/2018 ZEESHAN ADVOCACY</td><td>Ashely Duong</td><td>[facility] 04:29:00 PM ([facility]</td><td>06/21/2018</td><td></td> [facility] 06/21/2018 Health 11:59:00 PM Center) EST Outpatient<td ID="[id number]">PATIENT Attender : Tess 06/12/2018 ZEESHAN ADVOCACY</td><td>Ashely Duong</td><td>[facility] 09:20:00 AM ([facility]</td><td>06/12/2018</td><td></td> [facility] 06/12/2018 Health 11:59:00 PM Center) EST Outpatient<td ID="vr[id number]">Regular Attender : Tess 06/04/2018 [place] Sonogram</td><td>MARIANA LARIOS MD</td><td>[facility] 01:30:00 PM ([facility]</td><td>06/04/2018</td><td></td> HARRIET BARNHART [facility] 06/04/2018 Health 03:29:09 PM Center) EST Outpatient<td Attender: [facility] 06/03/2018 A [place] ID="[id number]">[place]ALK[place]</td><td>DEVIKA FORTUNE Bhavik 12:15:00 PM s ([place] ARIAN BARNHART</td><td>[facility]</td><td>06/03/2018</td><td><content MD [facility] 05/18 Health ID="[id number]">[facility] 12:56:41 P M m [place]) Intermittent</content>, <content EST a ID="[id number]"></content></td> I n t e r m i t t e n t A s t h m a I n t e r m i t t e n t A s t h m a I n t e r m i t t e n t A s t h m a I n t e r m i t t e n t A s t h m a I n t e r m i t t e n t A s t h m a I n t e r m i t t e n t A s t h m a I n t e r m i t t e n t A s t h m a I n t e r m i t t e n t A s t h m a I n t e r m i t t e n t A s t h m a I n t e r m i t t e n t A s t h m a I n t e r m i t t e n t A s t h m a I n t e r m i t t e n t A s t h m a I n t e r m i t t e n t A s t h m a I n t e r m i t t e n t A s t h m a I n t e r m i t t e n t A s t h m a I n t e r m i t t e n t A s t h m a I n t e r m i t t e n t A s t h m a I n t e r m i t t e n t A s t h m a I n t e r m i t t e n t A s t h m a I n t e r m i t t e n t P r e g n a n c y P r e g n a n c y P r e g n a n c y P r e g n a n c y P r e g n a n c y P r e g n a n c y P r e g n a n c y P r e g n a n c y P r e g n a n c y P r e g n a n c y P r e g n a n c y P r e g n a n c y P r e g n a n c y P r e g n a n c y P r e g n a n c y P r e g n a n c y P r e g n a n c y P r e g n a n c y P r e g n a n c y P r e g n a n c y Asthma Intermittent Asthma Intermittent Asthma Intermittent Asthma Intermittent Asthma Intermittent Asthma Intermittent Asthma Intermittent Asthma Intermittent Asthma Intermittent Asthma Intermittent Asthma Intermittent Asthma Intermittent Asthma Intermittent Asthma Intermittent Asthma Intermittent Asthma Intermittent Asthma Intermittent Asthma Intermittent Asthma Intermittent Asthma Intermittent Outpatient<td Attender: 06/03/2018 [place] ID="[id number]">[Patient SUSAN 11:2 7:00 AM ([place] Encounter]</td><td>SUSAN LIU EST - Neighborhood CN</td><td> CN 06/03/2018 Health </td><td>06/03/2018</td><td></td> 11:59:00 PM [place]) EST Outpatient<td Attender: Kathrin 05/29/2018 Preg [place] ID="[id number]"> SUSAN ers 01:3 0:00 PM [facility] ([place] FOLLOW UP</td><td>SUSAN CELISS Comm EST - yPr e Neighborhood CNM</td><td>[facility] unit 05/29/2018 RUST</td><td>05/29/2018</td><td><content y 02:4 0:54 PM cyPr Center) ID="[id number]"></co Heal EST egna ntent></td> th ncyP Cent regn er consuelo Preg nanc yPre gnan cyPr egna ncyP regn consuelo Preg nanc yPre gnan cyPr egna ncyP regn consuelo Preg nanc yPre gnan cyPr egna ncyP regn consuelo Preg nanc yPre gnan cyPr egna ncyP regn consuelo Preg nanc yPre gnan cy Outpatient<td Attender: 04/30/2018 ZEESHAN ID="[id number]">[Patient SUSAN 02:2 2:00 PM ([place] Encounter]</td><td>SUSAN LIU EST - Neighborhood CNM</td><td> CNM 04/30/2018 Health </td><td>04/30/2018</td><td></td> 11:59:00 PM Center) EST Outpatient<td Attender: Yolana 04/30/2018 ZEESHAN ID="[id number]"> MARIANA ers 11:3 0:00 AM ([place] SONOGRAM</td><td>MARIANA LARIOS MD Comm EST - Neighborhood MD</td><td>[facility] unit 04/30/2018 Health Center</td><td>04/30/2018</td><td></td> y 02:20:0 9 PM Center) Heal EST th Cent er Outpatient<td Attender: Yocricket 04/30/2018 ZEESHAN ID="[id number]"> SUSAN ers 11:0 0:00 AM ([place] FOLLOW UP</td><td>SUSAN LIU Comm EST - Neighborhood CNM</td><td>[facility] unit 04/30/2018 Health Center</td><td>04/30/2018</td><td></td> y 12:37:0 8 PM Center) Heal EST Cent er Outpatient<td Attender: cricket 04/29/2018 ZEESHAN ID="[id number]">PATIENT Ashely ers 12:39 :00 PM ([place] ADVOCACY</td><td>Ashely Duong Comm EST - Ne [facility] Duong</td><td>[facility] unit 2017 Health Center</td><td>04/29/2018</td><td></td> y 11:59:0 0 PM Center) Heal EST [facility] er Outpatient<td Attender: [facility] 04/10/2018 ZEESHAN ID="vf[id number]">*No SUSAN ers 04:48:00 PM ([place] Show*</td><td>SUSAN LIU Comm EDT - Neighborhood CNM</td><td>[facility] CNM unit 04/10/2018 Health Center</td><td>04/10/2018</td><td></td> y 11:59:0 0 PM Center) Heal EDT th Cent er Outpatient<td Attender: 04/03/2018 ZEESHAN ID="[id number]">[Patient SUSAN 09:1 4:00 AM ([place] Encounter]</td><td>SUSAN LIU EDT - Neighborhood CNM</td><td> CNM 04/03/2018 Health </td><td>04/03/2018</td><td></td> 11:59:00 PM Center) EDT Outpatient<td Attender: [facility] 03/28/2018 ZEESHAN ID="[id number]">*OUTREACH MYRIAM ers 01: 01:00 PM (Alexis Gutierres *</td><td>MYRIAM NICOLE RD</td><td>Tess NICOLE Comm EDT - [facility] Health unit 03/28/2018 Health Center</td><td>03/28/2018</td><td></td> y 11:59:0 0 PM Center) Heal EDT th Cent er Outpatient<td Attender: Kathrin 03/27/2018 Preg [place] ID="[id number]">1st SUSAN ers 10:30:00 AM nanc ([place] </td><td>SUSAN CELISSatya KELLERNOE Comm EDT - yPre [facility] CN</td><td>[facility] CNM unit 03/27/2018 [place]</td><td>03/27/2018</td><td><content y 11:4 6:29 AM cyPr Center) ID="[id number]"></co Heal EDT egna ntent></td> th ncyP Cent regn er consuelo Preg nanc yPre gnan cyPr egna ncyP regn consuelo Preg nanc yPre gnan cyPr egna ncyP regn consuelo Preg nanc yPre gnan cyPr egna ncyP regn consuelo Preg nanc yPre gnan cyPr egna ncyP regn consuelo Preg nanc yPre gnan cyPr egna ncyP regn consuelo Outpatient<td Attender: Tess 03/19/2018 ZEESHAN ID="[id number]">*[facility] 11:21: 00 AM ([place] Update*</td><td>LALO ROUSE MD Health EDT - [facility] </td><td>[facility] 03/19/2018 Health Center</td><td>03/19/2018</td><td></td> 11:59:0 0 PM Center) EDT Outpatient<td Attender: Tess 03/19/2018 P [place] ID="[id number]">NURSE [facility] 10:00:0 0 AM r (Alexis Gutierres [facility]</td><td>[facility] EDT - e [facility]</td><td>[facility] Center 03/19/2018 [facility]</td><td>03/19/2018</td><td><conten 11:56 :25 AM n Center) t EDT a ID="[id number]"></ n content></td> c y P r e g n a n c y P r e g n a n c y P r e g n a n c y P r e g n a n c y P r e g n a n c y P r e g n a n c y P r e g n a n c y P r e g n a n c y P r e g n a n c y P r e g n a n c y P r e g n a n c y P r e g n a n c y P r e g n a n c y P r e g n a n c y P r e g n a n c y P r e g n a n c y P r e g n a n c y P r e g n a n c y P r e g n a n c y P r e g n a n c y P r e g n a n c y P r e g n a n c y P r e g n a n c y Outpatient<td Attender: Tess 03/08/2018 [place] ID="[id number]">WALKINS</td><td>LALO [facility] 12:30:00 PM (Alexis ROUSE MD</td><td>[facility] PADMA BARNHART Health EDT - [facility]</td><td>03/08/2018</td><td></td> [place] [address] [place] [address] 01:22:04 PM Center) EDT Medications Medication Brand Start Product Dose Route Administrative Pharmacy atus Indications Reaction Description Data Name Date Form Instructions Instructions Source(s) Abdominal Abdomi 10/17/ UNIT complet Abdomina l ZEESHAN Support nal 2019 ed Support (Mount 2X/3X Large Suppor 12:00: 2X/3X Lar ge Bhavik Miscellaneo t 00 AM Neighbo rho us 2X/3X EDT od Health Large Center) Miscel laneou s Colace Colace 10/11/ UNIT complet Colace GREE NWAY 100MG Oral 100MG 2018 ed ([place] Capsule Oral 12:00: Bhavik Capsul 00 AM Neighborho e EDT od Health Center) ferrous Ferrou 10/11/ UNIT 1 complet Ferrous GR EENWAY sulfate 325 s 2018 ed Sulfate (Moun t MG Oral Sulfat 12:00: Bhavik Tablet e 325 00 AM [place] Ferrous (65 EDT od Health Sulfate 325 Fe)MG Center) (65 Fe)MG Oral Oral Tablet Tablet Eucerin Euceri 07/03/ APPLICAT complet Euceri n ZEESHAN Eczema n 2019 ION UNIT ed Eczema ([place] Relief 1% Eczema 12:00: Relief Aidan on External Relief 00 AM Neighbor ho Cream 1% EST od Health Cardiac Rn Center) al Cream Eucerin Euceri 07/03/ APPLICAT complet Euceri n ZEESHAN Advanced n 2019 ION UNIT ed Advanced (Mo unt Repair Advanc 12:00: Repair Bhavik External ed 00 AM [place] Cream Repair EST od Health Cardiac Rn Center) al Cream Ventolin Ventol 06/03/ INHALATI active Ventol in HFA ZEESHAN HFA 108 (90 in HFA 2018 ON ([place] Base)MCG/AC 108 12:00: DOSING Aidan on T (90 00 AM UNIT Neighborho Inhalation Base)M EST od Heal th Aerosol CG/ACT Center) Solution Inhala tion Aeroso l Soluti on Cholecalcif Vitami 04/03/ UNIT 1 complet Vitami n D ZEESHAN jg 1000 n D 2018 ed (Cholecalcif (M ount UNT Oral (Lucie 12:00: jg) Bhavik Tablet calcif 00 AM [place] Vitamin D jg) EDT od [facility] (Cholecalci 1000UN Center ) ferol) IT 1000UNIT Oral Oral Tablet Tablet Vitamin B6 Vitami 03/27/ UNIT 1 complet Vitamin B6 ZEESHAN 200MG Oral n B6 2018 ed (Mount Tablet 200MG 12:00: Bhavik Oral 00 AM [place] Tablet EDT od Health Center) Unisom Unisom 03/27/ UNIT complet Unisom GREE NWAY Sleepgels Sleepg 2018 ed Sleepgels (Mo unt 50MG Oral els 12:00: Bhavik Capsule 50MG 00 AM Neighborho Oral EDT od [facility]) e Prenat 03/27/ UNIT 1 complet [place] Vitamin and al 2018 ed Vitamin and ( [place] Mineral Vitami 12:00: Mineral Verno n 28-0.8MG n and 00 AM Neighborh o Oral Tablet Minera EDT od Hea [facility]) 28-0.8 MG Oral Tablet NebulizerDi complet Saint rections: ed [facility] as directed Medical Center Albuterol albute 3 mL complet Saint 0.83 MG/ML rol [facility] Inhalant sulfat Medical Solution e 2.5 Center albuterol mg/3 sulfate 2.5 mL mg/3 mL (0.083 (0.083 %) %) Solution Soluti for on for Nebulizatio Nebuli n, Ordered zation By: Stacy Hart d By: MDDirection Michae s: 3 mL by enedelia Kumar inhalation Greenb every six erg, hours PRN MDDire shortness ctions of breath : 3 mL by inhala tion every six hours PRN shortn ess of breath prednisolon predni 10 mL complet Sa int e 3 MG/ML soLONE [facility] Oral 15 Medical Solution mg/5 Center prednisoLON mL E 15 mg/5 Soluti mL on, Solution, Ordere Ordered By: d By: enedelia Tom MDDirection Greenb s: 10 mL erg, oral daily MDDire ctions : 10 mL oral daily Insurance Providers Payer name Policy type / Policy ID Covered Covered Policy Plan Coverage type green party ID green party's Cool Inform ation relationship to cool MARCELO [id number] SP [id number] HEALTH NON CAP Medicaid of Individual 0 Self 0 [place] Policy Medicaid of Individual 0 Self 0 [place] Policy MEDICAID [id number] SP [id number] Marcelo Care Individual 0 Self 0 [place] Individual 0 Self 0 [place] Individual 0 Self 0 [place] Policy Marcelo Care Individual 0 Self 0 [place] Policy Marcelo Care Individual 0 Self 0 [place] Individual 0 Self 0 [place] Policy Marcelo Care Individual 0 Self 0 [place] Individual 0 Self 0 [place] Care Individual 0 Self 0 [place] Policy Marcelo Care Individual 0 Self 0 [place] Care Individual 0 Self 0 [place] Policy Marcelo Care Individual 0 Self 0 [place] Policy Marcelo Care Individual 0 Self 0 [place] Individual 0 Self 0 [place] Care Individual 0 Self 0 [place] Care Individual 0 Self 0 [place] Policy Marcelo Care Individual 0 Self 0 [place] Care Individual 0 Self 0 [place] Care Individual 0 Self 0 [place] Care Individual 0 Self 0 [place] Policy Marcelo Care Individual 0 Self 0 [place] Policy BC OUT OF [id number] SP [id number] STATE 0 60 Marcelo Care [id number] S [id number] [place] Medicaid Medicaid [id number] Regular Clinic Visit Dental [id number] S [id number] Dentaquest MKD Faheem Vision [id number] S [id number] MKD [place] [id number] S [id number] Family Planning MKD & EP 3 & 4 Only MARCELO [id number] self [id number] Marcelo Care Individual 0 Self 0 [place] Policy MARCELO [id number] MARCELO W [id number] MARCELO W [id number] Problems, Conditions, and Diagnoses Code Display Name Description Problem Type Effective Data Sour ce(s) Dates [id number] Intermittent Asthma Problem 06/03/2018 [place] ([place] asthma (disorder) Intermittent 12:00:00 AM [facility] on [facility]) [id number] Intermittent Asthma Problem 06/03/2018 [place] ([place] asthma (disorder) Intermittent 12:00:00 AM [facility] on [facility]) [id number] Intermittent Asthma Problem 06/03/2018 [place] ([place] asthma (disorder) Intermittent 12:00:00 AM [facility] on [facility]) [id number] Intermittent Asthma Problem 06/03/2018 [place] ([place] asthma (disorder) Intermittent 12:00:00 AM [facility] on [facility]) [id number] Intermittent Asthma Problem 06/03/2018 [place] ([place] asthma (disorder) Intermittent 12:00:00 AM [facility] on [facility]) [id number] Intermittent Asthma Problem 06/03/2018 [place] ([place] asthma (disorder) Intermittent 12:00:00 AM [facility] on [facility]) [id number] Intermittent Asthma Problem 06/03/2018 [place] ([place] asthma (disorder) Intermittent 12:00:00 AM [facility] on [facility]) [id number] Intermittent Asthma Problem 06/03/2018 [place] ([place] asthma (disorder) Intermittent 12:00:00 AM [facility] on [facility]) [id number] Intermittent Asthma Problem 06/03/2018 [place] ([place] asthma (disorder) Intermittent 12:00:00 AM [facility] on [facility]) [id number] Intermittent Asthma Problem 06/03/2018 [place] ([place] asthma (disorder) Intermittent 12:00:00 AM [facility] on [facility]) [id number] Intermittent Asthma Problem 06/03/2018 [place] ([place] asthma (disorder) Intermittent 12:00:00 AM [facility] on [facility]) [id number] Intermittent Asthma Problem 06/03/2018 [place] ([place] asthma (disorder) Intermittent 12:00:00 AM [facility] on [facility]) [id number] Intermittent Asthma Problem 06/03/2018 [place] ([place] asthma (disorder) Intermittent 12:00:00 AM [facility] on [facility]) [id number] Intermittent Asthma Problem 06/03/2018 [place] ([place] asthma (disorder) Intermittent 12:00:00 AM [facility] on [facility]) [id number] Intermittent Asthma Problem 06/03/2018 [place] ([place] asthma (disorder) Intermittent 12:00:00 AM [facility] on [facility]) [id number] Intermittent Asthma Problem 06/03/2018 [place] ([place] asthma (disorder) Intermittent 12:00:00 AM [facility] on [facility]) [id number] Intermittent Asthma Problem 06/03/2018 [place] ([place] asthma (disorder) Intermittent 12:00:00 AM [facility] on [facility]) [id number] Intermittent Asthma Problem 06/03/2018 [place] ([place] asthma (disorder) Intermittent 12:00:00 AM [facility] on [facility]) [id number] Intermittent Asthma Problem 06/03/2018 [place] ([place] asthma (disorder) Intermittent 12:00:00 AM [facility] on [facility]) [id number] Intermittent Asthma Problem 06/03/2018 [place] ([place] asthma (disorder) Intermittent 12:00:00 AM [facility] on [facility]) [id number] Disorder of Respiratory Problem 03/19/2018 [place] ([place] respiratory system Disorders 12:00:00 AM [place] (disorder) [facility]) [id number] History of Reported Previous Problem 03/19/2018 [place] ([place] sexually Std 12:00:00 AM [facility]) (situation) [id number] Possible Varicella Possible Problem 03/19/2018 [facility] [facility] ([place] Susceptibility (no Varicella 12:00:00 AM [place] Prior History) Susceptibility EDT [facility] (no [facility]) History) 02173358 Allergic rhinitis History of Problem 03/19/2018 [facility] ([place] (disorder) Allergic Rhinitis 12:00:00 AM [facility]) [id number] Disorder of Respiratory Problem 03/19/2018 [place] ([place] respiratory system Disorders 12:00:00 AM [place] (disorder) [facility]) [id number] History of Reported Previous Problem 03/19/2018 [place] [facility] ([place] sexually Std 12:00:00 AM [facility]) (situation) [id number] Possible Varicella Possible Problem 03/19/2018 [facility] [facility] ([place] Susceptibility (no Varicella 12:00:00 AM [place] Prior History) Susceptibility EDT [facility] (no Prior [facility] Center) History) 67483486 Allergic rhinitis History of Problem 03/19/2018 [facility] ([place] (disorder) Allergic Rhinitis 12:00:00 AM [facility]) [id number] Disorder of Respiratory Problem 03/19/2018 [place] ([place] respiratory system Disorders 12:00:00 AM [place] (disorder) [facility]) [id number] History of Reported Previous Problem 03/19/2018 [place] ([place] sexually Std 12:00:00 AM [facility]) (situation) [id number] Possible Varicella Possible Problem 03/19/2018 [facility] ([place] Susceptibility (no Varicella 12:00:00 AM [place] Prior History) Susceptibility EDT [facility] (no [facility]) History) 77402272 Allergic rhinitis History of Problem 03/19/2018 [facility] ([place] (disorder) Allergic Rhinitis 12:00:00 AM [facility]) [id number] Disorder of Respiratory Problem 03/19/2018 [place] ([place] respiratory system Disorders 12:00:00 AM [place] (disorder) [facility]) 135173722 History of Reported Previous Problem 03/19/2018 [place] [facility] ([place] sexually Std 12:00:00 AM [facility]) (situation) [id number] Possible Varicella Possible Problem 03/19/2018 [facility] ([place] Susceptibility (no Varicella 12:00:00 AM [place] Prior History) Susceptibility EDT [facility] (no [facility]) History) 02559997 Allergic rhinitis History of Problem 03/19/2018 [facility] ([place] (disorder) Allergic Rhinitis 12:00:00 AM [facility]) [id number] Disorder of Respiratory Problem 03/19/2018 [place] ([place] respiratory system Disorders 12:00:00 AM [place] (disorder) [facility]) [id number] History of Reported Previous Problem 03/19/2018 [facility] ([place] sexually Std 12:00:00 AM [facility]) (situation) [id number] Possible Varicella Possible Problem 03/19/2018 [place] [facility] ([place] Susceptibility (no Varicella 12:00:00 AM [place] Prior History) Susceptibility EDT [facility] (no [facility]) History) 37464140 Allergic rhinitis History of Problem 03/19/2018 [facility] ([place] (disorder) Allergic Rhinitis 12:00:00 AM [facility]) [id number] Disorder of Respiratory Problem 03/19/2018 [place] ([place] respiratory system Disorders 12:00:00 AM [place] n (disorder) [facility]) [id number] History of Reported Previous Problem 03/19/2018 [place] [facility] ([place] sexually Std 12:00:00 AM [facility]) (situation) [id number] Possible Varicella Possible Problem 03/19/2018 [facility] [facility] ([place] Susceptibility (no Varicella 12:00:00 AM [place] Prior History) Susceptibility EDT [facility] (no [facility]) History) 73946790 Allergic rhinitis History of Problem 03/19/2018 [place] [facility] ([place] (disorder) Allergic Rhinitis 12:00:00 AM [facility]) [id number] Disorder of Respiratory Problem 03/19/2018 [place] ([place] respiratory system Disorders 12:00:00 AM [place] (disorder) [facility]) 149421613 History of Reported Previous Problem 03/19/2018 [place] [facility] ([place] sexually Std 12:00:00 AM [facility]) (situation) 7619190003 Possible Varicella Possible Problem 03/19/2018 [facility] [facility] ([place] Susceptibility (no Varicella 12:00:00 AM [place] Prior History) Susceptibility EDT [facility] (no [facility]) History) 88857191 Allergic rhinitis History of Problem 03/19/2018 [facility] ([place] (disorder) Allergic Rhinitis 12:00:00 AM [facility]) [id number] Disorder of Respiratory Problem 03/19/2018 [place] ([place] respiratory system Disorders 12:00:00 AM [place] (disorder) [facility]) 208990526 History of Reported Previous Problem 03/19/2018 [facility] ([place] sexually Std 12:00:00 AM [facility]) (situation) 6259595141 Possible Varicella Possible Problem 03/19/2018 [facility] [facility] ([place] Susceptibility (no Varicella 12:00:00 AM [place] Prior History) Susceptibility EDT [facility] (no [facility]) History) 19681190 Allergic rhinitis History of Problem 03/19/2018 [facility] ([place] (disorder) Allergic Rhinitis 12:00:00 AM [facility]) 88308401 Disorder of Respiratory Problem 03/19/2018 [place] ([place] respiratory system Disorders 12:00:00 AM [place] (disorder) [facility]) [id number] History of Reported Previous Problem 03/19/2018 [place] [facility] ([place] sexually Std 12:00:00 AM [facility]) (situation) 2239670666 Possible Varicella Possible Problem 03/19/2018 [facility] [facility] ([place] Susceptibility (no Varicella 12:00:00 AM [place] Prior History) Susceptibility EDT [facility] (no [facility]) History) 72522673 Allergic rhinitis History of Problem 03/19/2018 [facility] ([place] (disorder) Allergic Rhinitis 12:00:00 AM [facility]) [id number] Disorder of Respiratory Problem 03/19/2018 [place] ([place] respiratory system Disorders 12:00:00 AM [place] (disorder) [facility]) 600449682 History of Reported Previous Problem 03/19/2018 [place] [facility] ([place] sexually Std 12:00:00 AM [facility]) (situation) 1738634610 Possible Varicella Possible Problem 03/19/2018 [place] [facility] ([place] Susceptibility (no Varicella 12:00:00 AM [place] Prior History) Susceptibility EDT [facility] (no [facility]) History) 73983151 Allergic rhinitis History of Problem 03/19/2018 [facility] ([place] (disorder) Allergic Rhinitis 12:00:00 AM [facility]) 08977513 Disorder of Respiratory Problem 03/19/2018 [place] ([place] respiratory system Disorders 12:00:00 AM [place] (disorder) [facility]) 979926410 History of Reported Previous Problem 03/19/2018 [place] ([place] sexually Std 12:00:00 AM [facility]) (situation) 8254024208 Possible Varicella Possible Problem 03/19/2018 [facility] [facility] ([place] Susceptibility (no Varicella 12:00:00 AM [place] Prior History) Susceptibility EDT [facility]no [facility]) History) 14298191 Allergic rhinitis History of Problem 03/19/2018 [facility] ([place] (disorder) Allergic Rhinitis 12:00:00 AM [facility]) 17336023 Allergic rhinitis History of Problem 03/19/2018 [facility] ([place] (disorder) Allergic Rhinitis 12:00:00 AM [facility]) [id number] Possible Varicella Possible Problem 03/19/2018 [facility] ([place] Susceptibility (no Varicella 12:00:00 AM [place] Prior History) Susceptibility EDT [facility] (no [facility]) History) 506731003 History of Reported Previous Problem 03/19/2018 [place] [facility] ([place] sexually Std 12:00:00 AM [facility]) (situation) 60237349 Disorder of Respiratory Problem 03/19/2018 [place] ([place] respiratory system Disorders 12:00:00 AM [place] (disorder) [facility]) [id number] Allergic rhinitis History of Problem 03/19/2018 [facility] ([place] (disorder) Allergic Rhinitis 12:00:00 AM [facility]) [id number] Possible Varicella Possible Problem 03/19/2018 [facility] ([place] Susceptibility (no Varicella 12:00:00 AM [place] Prior History) Susceptibility EDT [facility] (no [facility]) History) 212632970 History of Reported Previous Problem 03/19/2018 [facility] ([place] sexually Std 12:00:00 AM [facility]) (situation) [id number] Disorder of Respiratory Problem 03/19/2018 [place] ([place] respiratory system Disorders 12:00:00 AM [place] (disorder) [facility]) 35927271 Allergic rhinitis History of Problem 03/19/2018 [facility] ([place] (disorder) Allergic Rhinitis 12:00:00 AM [facility]) [id number] Possible Varicella Possible Problem 03/19/2018 [facility] ([place] Susceptibility (no Varicella 12:00:00 AM [place] Prior History) Susceptibility EDT [facility] (no [facility]) History) 929069936 History of Reported Previous Problem 03/19/2018 [place] [facility] ([place] sexually Std 12:00:00 AM [facility]) (situation) 08187232 Disorder of Respiratory Problem 03/19/2018 [place] ([place] respiratory system Disorders 12:00:00 AM [place] (disorder) [facility]) 53876941 Allergic rhinitis History of Problem 03/19/2018 [facility] ([place] (disorder) Allergic Rhinitis 12:00:00 AM [facility]) [id number] Possible Varicella Possible Problem 03/19/2018 [place] [facility] ([place] Susceptibility (no Varicella 12:00:00 AM [place] Prior History) Susceptibility EDT [facility] (no [facility]) History) 620528252 History of Reported Previous Problem 03/19/2018 [place] [facility] ([place] sexually Std 12:00:00 AM [facility]) (situation) 67938757 Disorder of Respiratory Problem 03/19/2018 [place] ([place] respiratory system Disorders 12:00:00 AM [place] (disorder) [facility]) 15746176 Allergic rhinitis History of Problem 03/19/2018 [place] [facility] ([place] (disorder) Allergic Rhinitis 12:00:00 AM [facility]) [id number] Possible Varicella Possible Problem 03/19/2018 [place] [facility] ([place] Susceptibility (no Varicella 12:00:00 AM [place] Prior History) Susceptibility EDT [place] [place] (no [facility]) History) 956829759 History of Reported Previous Problem 03/19/2018 [place] ([place] sexually Std 12:00:00 AM [facility]) (situation) 95923191 Disorder of Respiratory Problem 03/19/2018 [place] ([place] respiratory system Disorders 12:00:00 AM [place] (disorder) [facility]) 52703777 Allergic rhinitis History of Problem 03/19/2018 [facility] ([place] (disorder) Allergic Rhinitis 12:00:00 AM [facility]) 9181529056 Possible Varicella Possible Problem 03/19/2018 [facility] ([place] Susceptibility (no Varicella 12:00:00 AM [place] Prior History) Susceptibility EDT [place] [place] (no [facility]) History) 481528668 History of Reported Previous Problem 03/19/2018 [place] ([place] sexually Std 12:00:00 AM [facility]) (situation) 74685314 Disorder of Respiratory Problem 03/19/2018 [place] ([place] respiratory system Disorders 12:00:00 AM [place] (disorder) [facility]) 35548070 Allergic rhinitis History of Problem 03/19/2018 [facility] ([place] (disorder) Allergic Rhinitis 12:00:00 AM [facility]) 1828979600 Possible Varicella Possible Problem 03/19/2018 [place] [facility] ([place] Susceptibility (no Varicella 12:00:00 AM [place] Prior History) Susceptibility EDT [facility] (no [facility]) History) 622100528 History of Reported Previous Problem 03/19/2018 [place] [facility] ([place] sexually Std 12:00:00 AM [facility]) (situation) 82355853 Disorder of Respiratory Problem 03/19/2018 [place] ([place] respiratory system Disorders 12:00:00 AM [place] (disorder) [facility]) 64914766 Allergic rhinitis History of Problem 03/19/2018 [facility] ([place] (disorder) Allergic Rhinitis 12:00:00 AM [facility]) 3560892285 Possible Varicella Possible Problem 03/19/2018 [place] [facility] ([place] Susceptibility (no Varicella 12:00:00 AM [place] Prior History) Susceptibility EDT [place] [place] (no [facility]) History) 930849879 History of Reported Previous Problem 03/19/2018 [place] [facility] ([place] sexually Std 12:00:00 AM [facility]) (situation) 95024394 Disorder of Respiratory Problem 03/19/2018 [place] ([place] respiratory system Disorders 12:00:00 AM [place] (disorder) [facility]) 11612713 Allergic rhinitis History of Problem 03/19/2018 [facility] ([place] (disorder) Allergic Rhinitis 12:00:00 AM [facility]) 9559915779 Possible Varicella Possible Problem 03/19/2018 [place] [facility] ([place] Susceptibility (no Varicella 12:00:00 AM [place] Prior History) Susceptibility EDT [place] [place] (no [facility]) History) 597239259 History of Reported Previous Problem 03/19/2018 [place] [facility] ([place] sexually Std 12:00:00 AM [facility]) (situation) 33032910 Disorder of Respiratory Problem 03/19/2018 [place] ([place] respiratory system Disorders 12:00:00 AM [place] (disorder) [facility]) 37382330 Allergic rhinitis History of Problem 03/19/2018 [place] [facility] ([place] (disorder) Allergic Rhinitis 12:00:00 AM [facility]) 7634403185 Possible Varicella Possible Problem 03/19/2018 [place] [facility] ([place] Susceptibility (no Varicella 12:00:00 AM [place] Prior History) Susceptibility EDT [facility] [place] (no [facility]) History) 499403057 History of Reported Previous Problem 03/19/2018 [place] [facility] ([place] sexually Std 12:00:00 AM [facility]) (situation) 41547917 Disorder of Respiratory Problem 03/19/2018 [place] ([place] unt respiratory system Disorders 12:00:00 AM [place] (disorder) [facility]) 58408488 Allergic rhinitis History of Problem 03/19/2018 [place] [facility] ([place] (disorder) Allergic Rhinitis 12:00:00 AM [facility]) 6347162159 Possible Varicella Possible Problem 03/19/2018 [place] [facility] ([place] Susceptibility (no Varicella 12:00:00 AM [place] Prior History) Susceptibility EDT [place] [place] (no [facility]) History) 635878794 History of Reported Previous Problem 03/19/2018 [place] [facility] ([place] sexually Std 12:00:00 AM [facility]) (situation) 15147173 Disorder of Respiratory Problem 03/19/2018 [place] ([place] respiratory system Disorders 12:00:00 AM [place] (disorder) [facility]) 74356118 Allergic rhinitis History of Problem 03/19/2018 [facility] ([place] (disorder) Allergic Rhinitis 12:00:00 AM [facility]) 5266415394 Possible Varicella Possible Problem 03/19/2018 [facility] ([place] Susceptibility (no Varicella 12:00:00 AM [place] Prior History) Susceptibility EDT [place] (no [facility]) History) 373137162 History of Reported Previous Problem 03/19/2018 [place] [facility] ([place] sexually Std 12:00:00 AM [facility]) (situation) 62108507 Disorder of Respiratory Problem 03/19/2018 [place] ([place] respiratory system Disorders 12:00:00 AM [place] (disorder) [facility]) 54084735 Allergic rhinitis History of Problem 03/19/2018 [facility] ([place] (disorder) Allergic Rhinitis 12:00:00 AM [facility]) 8368640053 Possible Varicella Possible Problem 03/19/2018 [place] [facility] ([place] Susceptibility (no Varicella 12:00:00 AM [place] Prior History) Susceptibility EDT [place] [place] (no [facility]) History) 484251803 History of Reported Previous Problem 03/19/2018 [place] ([place] sexually Std 12:00:00 AM [facility]) (situation) 48739215 Disorder of Respiratory Problem 03/19/2018 [place] ([place] unt respiratory system Disorders 12:00:00 AM [place] n (disorder) EDT [facility]) 092672672 , Problem 02/02/2018 [place] (Moun t function 12:00:00 AM [place] (observable EDT Neighborhood entity) [facility]) 854238325 , Problem 02/02/2018 [place] (Moun t function 12:00:00 AM [place] (observable EDT Neighborhood entity) [facility]) 177746228 , Problem 02/02/2018 [place] (Moun t function 12:00:00 AM [place] (observable EDT Neighborhood entity) [facility]) 744981552 , Problem 02/02/2018 [place] (Moun t function 12:00:00 AM [place] (observable EDT Neighborhood entity) [facility]) 820067929 , Problem 02/02/2018 [place] (Moun t function 12:00:00 AM [place] (observable EDT Neighborhood entity) [facility]) 772370766 , Problem 02/02/2018 [place] (Moun t function 12:00:00 AM [place] (observable EDT Neighborhood entity) [facility]) 030565618 , Problem 02/02/2018 [place] (Moun t function 12:00:00 AM [place] (observable EDT Neighborhood entity) [facility]) [id number] , Problem 02/02/2018 [place] (Moun t function 12:00:00 AM [place] (observable EDT Neighborhood entity) [facility]) 512984663 , Problem 02/02/2018 [place] (Moun t function 12:00:00 AM [place] (observable EDT Neighborhood entity) [facility]) 858860865 , Problem 02/02/2018 [place] (Moun t function 12:00:00 AM [place] (observable EDT Neighborhood entity) [facility]) 486626855 , Problem 02/02/2018 [place] (Moun t function 12:00:00 AM [place] (observable EDT Neighborhood entity) [facility]) [id number] , Problem 02/02/2018 [place] (Moun t function 12:00:00 AM [place] (observable EDT Neighborhood entity) [facility]) 115316933 , Problem 02/02/2018 [place] (Moun t function 12:00:00 AM [facility] (observable EDT Neighborhood entity) [facility]) 920087299 , Problem 02/02/2018 [place] (Moun t function 12:00:00 AM [place] (observable EDT Neighborhood entity) [facility]) 843115688 , Problem 02/02/2018 [place] (Moun t function 12:00:00 AM [place] (observable EDT Neighborhood entity) [facility]) [id number] , Problem 02/02/2018 [place] (Moun t function 12:00:00 AM [place] (observable EDT Neighborhood entity) [facility]) 745574489 , Problem 02/02/2018 [place] (Moun t function 12:00:00 AM [place] (observable EDT Neighborhood entity) [facility]) 993503174 , Problem 02/02/2018 [place] (Moun t function 12:00:00 AM [place] (observable EDT Neighborhood entity) [facility]) [id number] , Problem 02/02/2018 [place] (Moun t function 12:00:00 AM [place] (observable EDT Neighborhood entity) [facility]) 774154560 , Problem 02/02/2018 [place] (Moun t function 12:00:00 AM [place] (observable EDT Neighborhood entity) [facility]) [id number] , Problem 02/02/2018 [place] (Moun t function 12:00:00 AM [place] (observable EDT Neighborhood entity) [facility]) [id number] , Problem 02/02/2018 [place] (Moun t function 12:00:00 AM [place] (observable EDT Neighborhood entity) [facility]) [id number] , Problem 02/02/2018 [place] (Moun t function 12:00:00 AM [place] (observable EDT Neighborhood entity) [facility]) [id number] , Problem 12/31/2017 [place] (Moun t function 12:00:00 AM [place] (observable EDT Neighborhood entity) [facility]) J45.909 Unspecified UNSPECIFIED Diagnosis 09/29/2018 [facility] asthma, ASTHMA, 08:03:00 PM [facility] uncomplicated UNCOMPLICATED EDT Z34.82 Encounter for Encounter for Diagnosis 08/16/2018 [place] (Alexis mendoza of [place] of normal 04:23:27 PM Ve rnon other normal , second EST Neigh borhood , second trimester [facility]) trimester Z3A.26 26 weeks gestation 26 weeks Diagnosis 08/16/2018 [facility] ([facility] of gestation of 04:23:27 PM [place] [facility]) O35.1XX0 Maternal care for Maternal care for Diagnosis 07/18/2018 [place] ([place] (suspected) (suspected) 10:30:00 AM Childrens chromosomal chromosomal EST Health abnormality in abnormality in [facility]) fetus, not fetus, not applicable or applicable or unspecified unspecified Surgeries/Procedures Procedure Description Date Indications Data Source(s) CARE (6 CARE (6 01/01/2019 G HERIBERTO ([facility] WEEK VISIT ONLY) WEEK VISIT ONLY) 12:00:00 [facility]) NST NON STRESS TEST NST NON STRESS TEST 11/08/2018 G HERIBERTO ([facility] 12:00:00 [facility]) PIL-[id number]-[id number] 11/08/2018 [facility] ([facility] 12:00:00 [facility]) UTRASOUND BREAST UTRASOUND BREAST 10/29/2018 YAKOV Y ([facility] LIMITED LIMITED 12:00:00 [facility]) EKG EKG 10/17/2018 [place] ([facility] 12:00:00 [facility]) MEASLES RUBEOLA MEASLES RUBEOLA 10/10/2018 [place] ([facility] ANTIBODY ANTIBODY 12:00:00 [facility]) HIV 1/2 ANTIGEN & HIV 1/2 ANTIGEN & 10/10/2018 [facility] ([facility] ANTIBODIES, 4TH ANTIBODIES, 4TH 12:00:00 [place] GENERATION W/REFLEXES GENERATION W/REFLEXES [facility]) [id number] 10/10/2018 [facility] ([facility] 12:00:00 [facility]) VDRL (RPR) VDRL (RPR) 10/10/2018 ZEESHAN ([facility] 12:00:00 [facility]) FINGER STICK BLOOD FINGER STICK BLOOD 08/09/2018 GRE ENWAY ([facility] GLUCOSE GLUCOSE 12:00:00 [facility]) ECHO CARDIOVASC ECHO EXAM OF 07/18/2018 NEXTGEN ([place] W/WO M-MODE RECORDING HEART 12:00:00 [facility] AM EST [facility]) DOPPLER ECHO ECHO EXAM OF 07/18/2018 NEX TGEN ([place] SPECTRAL DISPLAY HEART 12:00:00 [facility] COMPLETE AM EST [facility]) DOP ECHOCARD COLOR FLOW DOPPLER COLOR FLOW 07/18/2018 NEXTGEN ([place] VELOCITY MAPPING ADD-ON 12:00:00 [facility] AM EST [facility]) OFFICE CONSULTATION OFFICE CONSULTATION 07/18/2018 N EXTGEN ([place] NEW/ESTAB PATIENT 80 12:00:00 [facility] MIN AM EST [facility]) OBSTETRICAL, COMPLETE OBSTETRICAL, COMPLETE 07/09/2018 ZEESHAN ([facility] 12:00:00 [facility]) BILE ACIDS,TOTAL BILE ACIDS,TOTAL 07/03/2018 [facility] ([facility] 12:00:00 [facility]) OBSTETRICAL, LIMITED OBSTETRICAL, LIMITED 06/04/2018 ZEESH[place] ([facility] 12:00:00 [facility]) Transabdominal OB Transabdominal OB 04/30/2018 [facility] ([facility] Ultrasound first Ultrasound first 12:00:00 [facility]) History of allergic History of allergic 04/03/2018 G REENWAY ([facility] rhinitis rhinitis 12:00:00 [facility]) HEMOGLOBIN A1C HEMOGLOBIN A1C 03/19/2018 [place] ([facility] 12:00:00 [facility]) HIV 1/2 ANTIGEN & HIV 1/2 ANTIGEN & 03/19/2018 [facility] ([facility] ANTIBODIES, 4TH ANTIBODIES, 4TH 12:00:00 [place] GENERATION W/REFLEXES GENERATION W/REFLEXES [facility]) BLOOD LEAD BLOOD LEAD 03/19/2018 [place] ([facility] 12:00:00 [facility]) TSH-THYROID STIMULATING TSH-THYROID 03/19/2018 TERI NUNEZ ([facility] STIMULATING 12:00:00 [facility]) URINE C AND S URINE C AND S 03/19/2018 [place] ([facility] 12:00:00 [facility]) 1 - 25 DIHYDROXYVITAMIN 1 - 25 03/19/2018 TERI NUNEZ ([facility] D DIHYDROXYVITAMIN D 12:00:00 [facility]) HEPATITIS B SURFACE AG HEPATITIS B SURFACE AG 03/19/2018 [place] ([facility] HEPATITIS C ANTIBODY HEPATITIS C ANTIBODY 03/19/2018 [place] ([facility] 12:00:00 [facility]) HIV - 1 AND HIV - 2, HIV - 1 AND HIV - 2, 03/19/2018 [place] ([facility] SINGLE ASSAY SINGLE ASSAY 12:00:00 [facility]) QUANTIFERON QUANTIFERON 03/19/2018 [place] ([facility] TUBERCULOSIS TEST, CELL TUBERCULOSIS TEST, 12:00:00 [place] MEDIATED IMMUNITY AG CELL MEDIATED IMMUNITY [facility] RES AG [facility]) RUBELLA TITER RUBELLA TITER 03/19/2018 [place] ([facility] 12:00:00 [facility]) METABOLIC PANEL METABOLIC PANEL 03/19/2018 [place] ([facility] COMPREHE COMPREHE 12:00:00 [facility]) URINALYSIS MICROSCOPIC URINALYSIS MICROSCOPIC 03/19/2018 [place] ([facility] 12:00:00 [facility]) URINALYSIS URINALYSIS 03/19/2018 [place] ([facility] 12:00:00 [facility]) LLX-PSUG-[id number]-[id number] 03/19/2018 [facility] ([facility] 12:00:00 [facility]) ABO--- BLOOD TYPING ABO--- BLOOD TYPING 03/19/2018 [facility] ([facility] 12:00:00 [facility]) VDRL (RPR) VDRL (RPR) 03/19/2018 [place] ([facility] 12:00:00 [facility]) URINE TEST URINE TEST 03/08/2018 [place] ([place] ONLY ONLY 12:00:00 [facility]) Results ID Date Data Source [id number] 10/10/2018 09:41:00 AM [facility] ([facility]) Name Value Range Interpretation Description Data Source(s ) Supporting Code Document(s ) Streptococcus. Positive Abnormal Strep Gp B [place] beta-hemolytic (applies to Culture ([place] [Presence] in non-numeric Neighborhood Unspecified results) [facility] Center) specimen by Organism specific culture Note: Centers for Disease Control and Pr evention (CDC) and [place] Congressof Obstetricians and Gynecologists (ACOG) g uidelines for prevention ofperinatal group B streptococcal (GBS) disease specify co-c ollection ofa vaginal and rectal swab specimen to maximize sensitivity of GBSd etection. Per the CDC and ACOG, swabbing both the lower vagina andrectum substantially increases the yield of detection compared withsampling the vagina alone.Penicillin G, ampicillin, or cefazolin are indicated for intrapartumprophylaxis of GBS colonization. Reflex susceptibilitytesting should be performe d prior to use of clindamycin only on GBSisolates from penicillin-allergic wom en who are considered a high riskfor anaphylaxis. Treatment with vancomycin w ithout additional testingis warranted if resistance to clindamycin is noted. ID Date Data Source [id number] 10/10/2018 09:41:00 AM EDT [place] ([facility]) Name Value Range Interpretation Description Data Source(s ) Supporting Code Document(s ) Neisseria Negative Neisseria Z[place]AN gonorrhoeae gonorrhoeae, ([place] rRNA [Presence] ARI Neighborhood in [facility]) specimen by Probe and target amplification method Chlamydia Negative Chlamydia [place] trachomatis trachomatis, ([place] rRNA [Presence] ARI [facility] in [facility]) specimen by Probe and target amplification method ID Date Data Source [id number] 10/10/2018 12:00:00 AM EDT [place] ([facility]) Name Value Range Interpretation Description Data Source(s ) Supporting Code Document(s ) Measles virus 146.0 Rubeola Ab, Z[place] IgG Ab AU/mL IgG ([place] [Units/volume] Neighborhood in Serum by [facility]) Immunoassay Note: Negative <25.0 Equ ivocal 25.0 - 29.9 Positive >29. 9 Presence of antibodies to Rubeola is presumptive evidence of immunity except when acute infection is suspected. ID Date Data Source [id number] 10/10/2018 12:00:00 AM EDT [place] ([facility]) Name Value Range Interpretation Description Data Source(s ) Supporting Code Document(s ) HIV 1+2 Non HIV Screen ZEESHAN Ab+HIV1 p24 Reactive 4th ([place] Ag [Presence] Generation Neighborhood in Serum or [facility]) Plasma by Immunoassay ID Date Data Source [id number] 07/03/2018 12:00:00 AM EST [place] ([facility]) Name Value Range Interpretation Description Data Source(s ) Supporting Code Document(s ) Bile acid 11.4 Bile Acids [place] ([facility] [Moles/vo umol/L [place] lume] in [facility]) Note: female reference interval (15 - 45 year s): 3.7 - 14.5 ID Date Data Source [id number] 05/29/2018 12:00:00 AM EST [place] ([facility]) Name Value Range Interpretation Description Data Source(s ) Supporting Code Document(s ) Second *Screen Abnormal (applies Test Results: [place] trimester quad Positive to non-numeric ([facility] maternal * results) [facility]) [Interpretatio n] in Serum or Plasma Narrative Gestational LMP Gestat. Age [place] age method Based On ([facility]) Note: 12/16 Gestational age 21.3 WEEKS Gest. Age on [place] ( [facility] Collection [facility]) Age at delivery 23.6 yr [facility] ([facility]) Mother's race Other Race [place] ([facility]) Body weight 137 lbs Weight [place] ([facility]) Multiple No Multiple Gestation GR EENWAY ([facility]) Insulin dependent diabetes No Insulin Dep [facility] ([facility] mellitus [Presence] Diabetes [facility]) Choriogonadotropin 78269 mIU/mL hCG Value [place] ([facility] [Units/volume] in Serum or [facility]) Mpric-4-Jhxdqagvbnq 51.5 ng/mL AFP Value [place] ([facility] [Mass/volume] in Serum or [facility]) Jybbr-1-Utitukrdxxh 0.75 AFP MoM [place] ( [place] [Multiple of the median] [place] Neighborhood adjusted in Serum or Plasma [facility]) Estriol (E3).unconjugated 0.30 uE3 MoM GREE NWAY ([place] [Multiple of the median] [place] Neighborhood adjusted in Serum or Plasma [facility]) Choriogonadotropin 3.98 hCG MoM [place] (M ount [Multiple of the median] [place] Neighborhood adjusted in Serum or Plasma [facility]) Estriol (E3).unconjugated 0.66 ng/mL uE3 Value [place] ([place] [Mass/volume] in Serum or [place] on [facility]) Inhibin A [Multiple of the 1.16 CIRO MoM GRE ENWAY ([facility] median] adjusted in Serum [facility] or [facility]) Inhibin A [Mass/volume] in 291.60 pg/mL CIRO Value ZE[place]AN ([facility] Serum or Plasma [facility]) Trisomy 21 risk 1137 DSR (By Age) 1 [place] ([facility] [Likelihood] Based on IN [facility]) Neural tube defect risk 50982 OSBR Risk 1 ZEESHAN ([place] [Likelihood] in Fetus IN [facility]) Trisomy 21 risk 203 DSR (Second ZESEHAN (Mo unt [Likelihood] in Fetus Trimester) 1 IN [facility]) Results Report Results ZEESHAN ([facility]) Note: AFP Tetra Second trimester quad maternal DW42 Interpret ation ZEESHAN ([place] screen [Interpretation] in Serum [facility]) or Plasma Narrative Note: Interpretation: Screen Positive f or Down SyndromeThis patient is at increased risk to have a baby with Down Syndrome.T he Down Syndrome risk was calculated using the gestational ageprovided, maternal ag e, AFP, hCG, uE3 and CIRO values. Pjwvcdqwyqszi12-73% of Down Syndro me can be detected by this test. Thisresult is screen negative for open spina bifida . This test canidentify up to 80% of open neural tube defects. Closed neural tube defects and some open defects may not be detected by this test.This test can iden tify approximately 60% of Trisomy 18.Recommendations:1. Targeted ult rasound to confirm gestational age and rule out anomalies.2. Do not repeat t est. Repeating the test can result in false negatives.3. Genetic counseling and amni ocentesis are appropriate options.Recalculations are not recommend ed when gestational dating by LMP andultrasound are within 10 days. Trisomy 18 risk Not increased T18 Risk ZEESHAN ( [place] [Likelihood] in Fetus [facility]) Trisomy 18 risk 1:4429 T18 (By Age) GRE[address] WAY ([place] [Likelihood] Based on [facility] maternal age Center) Comments: See Note Comments: ZEESHAN ([facility]) Note: Marya Morley, Ph.D., [facility] Genetics Technical DirectorReferences: Available Upon Reque st.Multiples Of Median Cutoffs Abbreviation Definitions For AFP Elev ations IDD- Insulin Dep DiabetesSingleton 2.5 Black 2.8 OSBR- Open Spina BifidaIDD 2.0 Twins 4.5 RiskDSR Cutoff 1:270 DSR- Down Syndrome RiskT18 Cutoff 1:100 T18- Trisomy 18Down Syndrome and Trisomy 18 screening are consideredInvestigationalFor further inq uiries contact [facility] Servicesat [phone]. Report . PDF ZEESHAN ([facility]) ID Date Data Source [id number] 03/27/2018 10:56:00 AM EDT Z[place] ([facility]) Name Value Range Interpretation Description Data Source(s ) Supporting Code Document(s ) Microscopic . . ZEESHAN ([facility] observation Bhavik [Identifier] Neighborhood [facility]) specimen by Other stain Pathology See Note DIAGNOSIS: ZEESHAN ([place] report final Bhavik diagnosis [facility]) Note: NEGATIVE FOR INTRAEPITHELIAL LESIO N AND MALIGNANCY. Note: PAPSMR Note: Z[place]AN ([place] [facility]) Note: The Pap smear is a screening test designed to aid in the detection ofpremalignant and malignant conditions of the uterine cervix. It is not adiagnostic procedure and should not be used as the sole means of detectingcervical cancer. Both false-positive and false-negative report s do occur. Statement of adequacy See Note Specimen adequacy: ZEESHAN ([place] [Interpretation] of Cervical N [facility] or vaginal smear or scraping C enter) by Cyto stain Note: Satisfactory for evaluation. Endo cervical and/or squamous metaplasticcells (endocervical component) are present. Weather Forcaster who read Cyto See Note Performed by: Andreas LOUIS ([place] stain of Cervical or [facility]) vaginal smear or scraping Note: Pino Douglas, Cardio Clinician ( ASCP) Diagnosis ICD code See Note Clinician provided PARVEZ CUNHA ([place] ICD10: [facility]) Note: Z3A.01 HPV Aptima Negative HPV Aptima ZEESHAN ([facility] Elise [facility]) Note: This test detects fourteen high-ri sk HPV types (16/18/31/33/35/39/45/51/52/56/58/59/66/ 68) without differentiation. Cytology report of IGLPAP Test Methodology: GRE ENWAY ([place] Cervical or vaginal smear [facility]) or scraping Cyto stain.thin prep Note: This liquid based ThinPrep(R) pap test was screened with theuse of an image guided system. ID Date Data Source [id number] 03/27/2018 10:53:00 AM EDT [place] ([facility]) Name Value Range Interpretation Description Data Source(s ) Supporting Code Document(s ) Request TNP Request Problem [place] ([facility]) Note: Test not performed. Deterioration occurred during specimen handling. TEST: [id number] QuantiFERON-TB Gold Plus ID Date Data Source [id number] 03/27/2018 10:53:00 AM EDT [place] ([facility]) Name Value Range Interpretation Description Data Source(s ) Supporting Code Document(s ) Bacteria Final Urine ZEESHAN identified in report Culture, ([place] Urine by Routine [facility]) Bacteria LESS Result 1 [place]ESH[place] identified in ([place] Urine by [facility]) Note: Culture shows less than 10,000 col kt forming units of bacteria permilliliter of urine. This colony count is not gener ally consideredto be clinically significant. ID Date Data Source [id number] 03/27/2018 10:53:00 AM EDT [place] ([facility]) Name Value Range Interpretation Description Data Source(s ) Supporting Code Document(s ) Hepatitis B Negative HBsAg Screen [place] virus surface ([place] Ag [Presence] [facility] in Serum or [facility]) Plasma by Immunoassay ID Date Data Source [id number] 03/27/2018 10:53:00 AM EDT [place] ([facility]) Name Value Range Interpretation Description Data Source(s ) Supporting Code Document(s ) Hepatitis C <0.1 Hep C Virus [place] virus Ab s/co_rat Ab ([place] Signal/Cutoff io [facility] in Serum or [facility] [place]) Plasma by Immunoassay Note: Negative: < 0.8 Indeterm inate: 0.8 - 0.9 Positive: > 0.9 The CDC recommends that a positive HCV antibody result be followed up with a HCV Nucleic Acid Amplification test (00952 3). ID Date Data Source [id number] 03/27/2018 10:53:00 AM EDT [place] ([facility]) Name Value Range Interpretation Description Data Source(s ) Supporting Code Document(s ) Lead None Lead, Blood [place] ([place] [Mass/vol Detected Bhavik ume] in ug/dL [facility]) Note: Testing performed by Inductively c oupled plasma/Mass Spectrometry. If the collected specimen type was capi llary, the Centers for Disease Control and Prevention provide the following recommendation: Repeat pediatric blood levels equ al to or greater than 5 ug/dL on a fresh venous blood specimen. Environmental Exposure: WHO <20 Occupational Exposure: OSHA Lead Std 40 PATY 30 Detection Limit = 1 (Children under 16 years)This test was developed and its performance charac teristicsdetermined by [employer]. It has not been cleared or approvedby the Food and Drug Administration. ID Date Data Source [id number] 03/27/2018 10:53:00 AM EDT [place] ([facility]) Name Value Range Interpretation Description Data Source(s ) Supporting Code Document(s ) Rubella virus 2.27 Rubella [place] IgG Ab index Antibodies, ([place] [Units/volume] IgG Neighborhood in Serum or Health Center) Plasma by Immunoassay Note: Non-immune <0.90 Equi vocal 0.90 - 0.99 Immune >0.9 9 ID Date Data Source [id number] 03/27/2018 10:53:00 AM EDT [place] ([facility]) Name Value Range Interpretation Description Data Source(s ) Supporting Code Document(s ) Hemoglobin 5.0 % Hemoglobin A1c [place] (Moun t A1c/Hemoglobi Bhavik n.total in [facility]) Note: Prediabetes: 5.7 - 6.4 Diabetes: >6.4 Glycemic control for adults with diabetes: <7.0 ID Date Data Source [id number] 03/27/2018 10:53:00 AM EDT [place] ([facility]) Name Value Range Interpretation Description Data Source(s ) Supporting Code Document(s ) Thyrotropin 0.44 Below low normal TSH-ICMA [place] (M ount [Units/volume] uU/mL Bhavik in [facility] or [facility]) Note: Reference Range:Pubertal Children and Adults:0.5 - 4.8 ID Date Data Source [id number] 03/27/2018 10:53:00 AM EDT [place] ([facility]) Name Value Range Interpretation Description Data Source(s ) Supporting Code Document(s ) Calcidiol 15.8 Below low normal Vitamin D, ZEESHAN (Mo unt [Mass/volume ng/mL 25-Hydroxy Bhavik ] in Serum [facility] or [facility]) Note: Vitamin D deficiency has been defi aaron by the [place] ofK[facility] Health [facility] Memorialcine and an Endocrine Society practice guideline as alevel of serum 25-OH vitamin D less than 20 ng/mL (1,2).The Endocrine Society went o n to further define vitamin Dinsufficiency as a level between 21 and 29 ng/mL (2).1. I OM ([place] of Medicine). 2010. Dietary reference intakes for calcium and D. [place]: The National Academies Press.2. Adryan MF, Marv NC, Violeta Wallace DAN, et al. Evaluation, treatment, and prevention of vitamin D deficiency : an Endocrine Society clinical practice guideline. JCEM. 2010; 96(7):1911-30 . Calcitriol 69.4 pg/mL Calcitriol(1,25 di-OH GREENW AY ([place] [Mass/volume] in Serum Vit D) [facility]) ID Date Data Source [id number] 03/27/2018 10:53:00 AM EDT [place] ([facility]) Name Value Range Interpretation Description Data Sup porting Code Source(s) Document(s ) Calcium 9.6 Calcium Z[place]AN [Mass/volume] in mg/dL ([facility]) Glucose 79 Glucose ZEESHAN [Mass/volume] in mg/dL ([facility]) Urea nitrogen 9 mg/dL BUN ZEESHAN [Mass/volume] in ([facility]) Bilirubin.total 0.9 Bilirubin, ZEESHAN [Mass/volume] in mg/dL Total ([facility]) Albumin 4.2 Albumin ZEESHAN [Mass/volume] in g/dL ([facility] or [facility]) Protein 6.9 Protein, ZEESHAN [Mass/volume] in g/dL Total ([facility]) Alkaline 38 IU/L Below low normal Alkaline Z[place]AN phosphatase Phosphatase ([place] [Enzymatic [facility] activity/volume] [facility] in Serum or [facility]) Aspartate 16 IU/L AST (SGOT) ZEESHAN aminotransferase ([place] [Enzymatic [facility] activity/volume] [facility] in Serum or Plasma [place]) Chloride 100 Chloride ZEESHAN [Moles/volume] in mmol/L ([facility] or [facility]) Sodium 137 Sodium ZEESHAN [Moles/volume] in mmol/L ([facility]) Potassium 4.1 Potassium ZEESHAN [Moles/volume] in mmol/L ([facility]) Alanine 12 IU/L ALT (SGPT) ZEESHAN aminotransferase ([place] [Enzymatic [facility] activity/volume] [facility] in Serum or Plasma [place]) Carbon dioxide, 17 Below low normal Carbon GREENSD Y total mmol/L Dioxide, ([place] [Moles/volume] in Total [facility] Serum or [facility]) Globulin 2.7 Globulin, ZEESHAN [Mass/volume] in g/dL Total ([place] Serum by [facility]) Urea 19 BUN/Creatinin ZEESHAN nitrogen/Creatinin e Ratio ([facility] on e [Mass Ratio] in [facility] Serum [facility]) Creatinine 0.48 Below low normal Creatinine ZEESHAN [Mass/volume] in mg/dL ([facility]) Albumin/Globulin 1.6 A/G Ratio ZEESHAN [Mass Ratio] in ([facility] or [facility]) eGFR If Africn Am 162 eGFR If ZEESHAN mL/min/ Africn Am ([address]) eGFR If NonAfricn 141 eGFR If ZEESHAN Am mL/min/ NonAfricn Am ([address]) ID Date Data Source [id number] 03/27/2018 10:53:00 AM EDT ZEESHAN ([facility]) Name Value Range Interpretation Description Data Source(s ) Supporting Code Document(s ) Chlamydia Negative Chlamydia ZEESHAN trachomatis trachomatis, ([place] rRNA [Presence] ARI Neighborhood in [facility]) specimen by Probe and target amplification method Neisseria Negative Neisseria ZEESHAN gonorrhoeae gonorrhoeae, ([place] rRNA [Presence] ARI Neighborhood in [facility]) specimen by Probe and target amplification method ID Date Data Source [id number] 03/27/2018 10:53:00 AM EDT [place] ([facility]) Name Value Range Interpretation Description Data Source(s ) Supporting Code Document(s ) Gardnerella Negative Gardnerella ZEESHAN vaginalis rRNA vaginalis ([place] [Presence] in [facility]) specimen by DNA probe Ariela sp Positive Abnormal Ariela Z[place]AN rRNA (applies to species ([place] [Presence] in non-numeric [facility] Vaginal fluid results) [facility] Center) by DNA probe Trichomonas Negative Trichomonas ZEESHAN vaginalis rRNA vaginalis ([place] [Presence] in [facility] Genital [facility]) specimen by DNA probe Procedure Social History Code Duration Value Status Description Data Source(s ) Smoking 09/29/2018 Denies Ever completed Denies Ever [place] [facility] 09:00:00 PM [facility] Smoking 09/29/2018 Denies Ever completed Denies Ever [place] 08:[place]:00 [facility] Smoking 09/29/2018 Denies Ever completed Denies Ever [place] 08:10:00 PM [facility] EDT Smoking 07/18/2018 Unknown if completed Unknown if ever NEXTGEN ( [place] 12:00:00 AM ever smoked smoked [facility] [facility] ) Caffeine Use 07/18/2018 completed NEXTGEN ([place] 12:00:00 AM [facility] ) Smoking 06/15/2018 Denies Ever completed Denies Ever [place] 03:38:00 AM [facility] Smoking 06/15/2018 Denies Ever completed Denies Ever [place] 03:11:00 AM [facility]oked [facility] Smoking 06/15/2018 Denies Ever completed Denies Ever [place] 02:44:00 AM Smoked Smoked [facility] Smoking Unknown if completed Unknown if ever eCW3 ([place] son ever smoked smoked [facility]) Smoking Unknown if completed Unknown if ever ZEESHAN ([place] ever smoked smoked [facility]) Smoking Unknown if completed Unknown if ever ZEESHAN ([facility] ever smoked smoked [facility]) Smoking Unknown if completed Unknown if ever ZEESHAN ([facility] ever smoked smoked [facility]) Smoking Unknown if completed Unknown if ever ZEESHAN ([facility] ever smoked smoked [facility]) Smoking Unknown if completed Unknown if ever ZEESHAN ([facility] ever smoked smoked [facility]) Smoking Unknown if completed Unknown if ever ZEESHAN ([facility] ever smoked smoked [facility]) Smoking Unknown if completed Unknown if ever ZEESHAN ([facility] ever smoked smoked [facility]) Smoking Unknown if completed Unknown if ever ZEESHAN ([facility] ever smoked smoked [facility]) Smoking Unknown if completed Unknown if ever ZEESHAN ([facility] ever smoked smoked [facility]) Smoking Unknown if completed Unknown if ever ZEESHAN ([facility] ever smoked smoked [facility]) Smoking Unknown if completed Unknown if ever ZEESHAN ([facility] ever smoked smoked [facility]) Smoking Unknown if completed Unknown if ever ZEESHAN ([facility] ever smoked smoked [facility]) Smoking Unknown if completed Unknown if ever ZEESHAN ([facility] ever smoked smoked [facility]) Smoking Unknown if completed Unknown if ever ZEESHAN ([facility] ever smoked smoked [facility]) Smoking Unknown if completed Unknown if ever ZEESHAN ([facility] ever smoked smoked [facility]) Smoking Unknown if completed Unknown if ever ZEESHAN ([facility] ever smoked smoked [facility]) Smoking Unknown if completed Unknown if ever ZEESHAN ([facility] ever smoked smoked [facility]) Smoking Unknown if completed Unknown if ever ZEESHAN ([facility] ever smoked smoked [facility]) Smoking Unknown if completed Unknown if ever ZEESHAN ([facility] ever smoked smoked [facility]) Smoking Unknown if completed Unknown if ever ZEESHNA ([facility] ever smoked smoked [facility]) Smoking Unknown if completed Unknown if ever ZEESHAN ([facility] ever smoked smoked [facility]) Smoking Unknown if completed Unknown if ever ZEESHAN ([facility] ever smoked smoked [facility]) Smoking Unknown if completed Unknown if ever ZEESHAN ([facility] ever smoked smoked [facility]) Smoking Unknown if completed Unknown if ever ZEESHAN ([facility] ever smoked smoked [facility]) Alcohol Use completed NEXTGEN ([place] [facility] ) Vital Signs ID Date Data Source UNK Name Value Range Interpretation Code Description Data Source(s) PhenX - pain, 0 0 ZEESHAN ([facility] abdominal - type [facility]) protocol Pt here for post visit Body temperature 99 [degF] 99 [degF] ZEESHAN ([facility]) Pt here for post visit Heart rate 94 /min 94 /min ZEESHAN ([facility]) Pt here for post visit Diastolic blood pressure 75 mm[Hg] 75 mm[Hg] ZEESHAN ([facility]) Pt here for post visit Systolic blood pressure 112 mm[Hg] 112 mm[Hg] [facility] ([facility]) Pt here for post visit Body temperature 99.2 [degF] 99.2 [degF] eCW3 ( [facility]) Heart rate 20 /min 20 /min eCW3 ([facility]) Body mass index (BMI) 26.96 kg/m2 26.96 kg/m2 e CW3 ([facility] [[facility]] [facility] [place]) Body weight 162 [lb_av] 162 [lb_av] eCW3 ([facility]) Body height 65 [in_i] 65 [in_i] eCW3 ([facility]) Diastolic blood pressure 86 mm[Hg] 86 mm[Hg] eCW3 ([facility]) Systolic blood pressure 132 mm[Hg] 132 mm[Hg] e CW3 ([facility]) PhenX - pain, abdominal - 0 0 ZEESHAN ([facility] type and intensity protocol [facility]) Patient thinks mucus plug came out Body weight 174 [lb_av] 174 [lb_av] ZEESHAN ([facility]) Patient thinks mucus plug came out Body temperature 97.3 [degF] 97.3 [degF] GREENW AY ([facility]) Patient thinks mucus plug came out Heart rate 109 /min 109 /min ZEESHAN ([facility]) Patient thinks mucus plug came out Diastolic blood pressure 70 mm[Hg] 70 mm[Hg] ZEESHAN ([facility]) Patient thinks mucus plug came out Systolic blood pressure 108 mm[Hg] 108 mm[Hg] G REENWAY ([facility]) Patient thinks mucus plug came out PhenX - pain, abdominal - type and 0 0 ZEESHAN ([facility]) PATIENT IS HERE FOR A BREAST LEFT SONOGR AM. PhenX - pain, abdominal - type and 0 0 ZEESHAN ([facility]) Pt here for follow up Body weight 170 [lb_av] 170 [lb_av] ZEESHAN ([facility]) Pt here for follow up Body temperature 98 [degF] 98 [degF] ZEESHAN ([facility]) Pt here for follow up Heart rate 99 /min 99 /min ZEESHAN ([facility]) Pt here for follow up Diastolic blood pressure 72 mm[Hg] 72 mm[Hg] ZEESHAN ([facility]) Pt here for follow up Systolic blood pressure 110 mm[Hg] 110 mm[Hg] [facility] Pt here for follow up PhenX - pain, abdominal - type and 0 0 ZEESHAN ([facility]) Pt here for follow up Body weight 174 [lb_av] 174 [lb_av] ZEESHAN ([facility]) Pt here for follow up Body temperature 97.5 [degF] 97.5 [degF] GREENW AY ([facility]) Pt here for follow up Heart rate 107 /min 107 /min ZEESHAN ([facility]) Pt here for follow up Diastolic blood pressure 68 mm[Hg] 68 mm[Hg] ZEESHAN ([facility]) Pt here for follow up Systolic blood pressure 106 mm[Hg] 106 mm[Hg] G REENWAY ([facility]) Pt here for follow up PhenX - pain, abdominal - type and 0 0 ZEESHAN ([facility]) 36 weeks patient here for follow up appt . Body surface area Derived from 1.86 m2 1.86 m2 [place] ([facility]) 36 weeks patient here for follow up appt . Body mass index (BMI) 28.6 kg/m2 28.6 kg/m2 GRE ENWAY ([facility] [[facility]] [facility]) 36 weeks patient here for follow up appt . Body weight 172 [lb_av] 172 [lb_av] ZEESHAN ([facility]) 36 weeks patient here for follow up appt . Body height 65 [in_us] 65 [in_us] ZEESHAN ([facility]) 36 weeks patient here for follow up appt . Body temperature 98.1 [degF] 98.1 [degF] GREENW AY ([facility]) 36 weeks patient here for follow up appt . Heart rate rhythm 1 1 GREENWA Y ([facility]) 36 weeks patient here for follow up appt . Heart rate 108 /min 108 /min [place] ([facility]) 36 weeks patient here for follow up appt . Diastolic blood pressure 70 mm[Hg] 70 mm[Hg] [place] ([facility]) 36 weeks patient here for follow up appt . Systolic blood pressure 110 mm[Hg] 110 mm[Hg] [facility]) 36 weeks patient here for follow up appt . Heart rate 126 /min 126 /min [facility] Oxygen saturation in 98 % 98 % [facility] Arterial blood by Pulse C enter oximetry Respiratory rate 18 /min 18 /min [facility] Systolic blood pressure 123 mm[Hg] 123 mm[Hg] [facility] Diastolic blood pressure 73 mm[Hg] 73 mm[Hg] [facility] Heart rate 72 /min 72 /min [facility] Oxygen saturation in 99 % 99 % [facility] Arterial blood by Pulse C enter oximetry Respiratory rate 20 /min 20 /min [facility] Body temperature 36.853800 Lisa 36.271400 Lisa [facility] PhenX - pain, abdominal - 0 0 ZEESHAN ([facility]) protocol Pt here for follow up after be in the E R on August Body weight 161 [lb_av] 161 [lb_av] ZEESHAN ([facility]) Pt here for follow up after be in the E R on August Body temperature 97.8 [degF] 97.8 [degF] GREENW AY ([facility]) Pt here for follow up after be in the E R on August Heart rate 98 /min 98 /min ZEESHAN ([facility]) Pt here for follow up after be in the E R on August Heart rate 97 /min 97 /min ZEESHAN ([facility]) Pt here for follow up after be in the E R on August Diastolic blood pressure 58 mm[Hg] 58 mm[Hg] ZEESHAN ([facility]) Pt here for follow up after be in the E R on August Systolic blood pressure 68 mm[Hg] 68 mm[Hg] [facility] ([facility]) Pt here for follow up after be in the E R on August Diastolic blood pressure 69 mm[Hg] 69 mm[Hg] ZEESHAN ([facility]) Pt here for follow up after be in the E R on August Systolic blood pressure 102 mm[Hg] 102 mm[Hg] [facility]) Pt here for follow up after be in the E R on August Diastolic blood pressure 81 mm[Hg] 81 mm[Hg] ZEESHAN ([facility]) Pt here for follow up after be in the E R on August Systolic blood pressure 111 mm[Hg] 111 mm[Hg] [facility] ([facility]) Pt here for follow up after be in the E R on August PhenX - pain, abdominal - type and 0 0 ZEESHAN ([facility]) Patient is here for . Body temperature 97.7 [degF] 97.7 [degF] GREENW AY ([facility]) Patient is here for . Heart rate rhythm 1 1 GREENWA Y ([facility]) Patient is here for . Heart rate 98 /min 98 /min ZEESHAN ([facility]) Patient is here for . Diastolic blood pressure 69 mm[Hg] 69 mm[Hg] ZEESHAN ([facility]) Patient is here for . Systolic blood pressure 102 mm[Hg] 102 mm[Hg] [facility]) Patient is here for . PhenX - pain, abdominal - type and 0 0 ZEESHAN ([facility]) Pt here for dizziness symptom Body weight 153 [lb_av] 153 [lb_av] ZEESHAN ([facility]) Pt here for dizziness symptom Body temperature 98 [degF] 98 [degF] ZEESHAN ([facility]) Pt here for dizziness symptom Heart rate 70 /min 70 /min ZEESHAN ([facility]) Pt here for dizziness symptom Diastolic blood pressure 70 mm[Hg] 70 mm[Hg] ZEESHAN ([facility]) Pt here for dizziness symptom Systolic blood pressure 108 mm[Hg] 108 mm[Hg] G REENWAY ([facility]) Pt here for dizziness symptom PhenX - pain, abdominal - type and 0 0 ZEESHAN ([facility]) 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, no compl aints Body weight 153 [lb_av] 153 [lb_av] ZEESHAN ([facility]) 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, no compl aints Body temperature 97.9 [degF] 97.9 [degF] GREENW AY ([facility]) 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, no compl aints Respiratory rate 18 /min 18 /min ZEESHAN ([facility]) 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, no compl aints Heart rate 79 /min 79 /min ZEESHAN ([facility]) 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, no compl aints Diastolic blood pressure 67 mm[Hg] 67 mm[Hg] ZEESHAN ([facility]) 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, no compl aints Systolic blood pressure 107 mm[Hg] 107 mm[Hg] G REENWAY ([facility]) 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, no compl aints Body height 163.50 cm 163.50 cm NEXTGEN ([facility]) Body weight 69.700 kg 69.700 kg NEXTGEN ([facility]) Systolic blood pressure 113 mm[Hg] 113 mm[Hg] N EXTGEN ([facility]) Diastolic blood 68 mm[Hg] 68 mm[Hg] NEXTGEN ( [facility]) Heart rate 97 /min 97 /min NEXTGEN ([facility]) Body mass index (BMI) 26.07 kg/m2 Overweight 26.07 kg/m2 N EXTGEN ([facility]) Body surface area 1.78 m2 1.78 m2 NEXTGEN ([facility] Derived from formula [facility]) Oxygen saturation in 98 % 98 % NEXT GEN ([facility] Arterial blood by Pulse [facility]) oximetry PhenX - pain, abdominal 7 7 G REENWAY ([place] - type and intensity [facility]) 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 follow up Body weight 148 [lb_av] 148 [lb_av] [place] ([facility]) 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 follow up Body temperature 9 [degF] 9 [degF] [place] ([facility]) 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 follow up Respiratory rate 18 /min 18 /min [place] ([facility]) 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 follow up Heart rate 105 /min 105 /min [place] ([facility]) 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 follow up Diastolic blood pressure 68 mm[Hg] 68 mm[Hg] [place] ([facility]) 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 follow up Systolic blood pressure 116 mm[Hg] 116 mm[Hg] [facility]) 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 follow up Systolic blood pressure 121 mm[Hg] 121 mm[Hg] [facility] Diastolic blood pressure 74 mm[Hg] 74 mm[Hg] [facility] Heart rate 80 /min 80 /min [facility] Oxygen saturation in 98 % 98 % [facility] Arterial blood by Pulse C enter oximetry Respiratory rate 17 /min 17 /min [facility] Body temperature 36.135643 Lisa 36.620073 Lisa [facility] Systolic blood pressure 119 mm[Hg] 119 mm[Hg] [facility] Diastolic blood pressure 66 mm[Hg] 66 mm[Hg] [facility] Heart rate 86 /min 86 /min [facility] Oxygen saturation in 99 % 99 % [facility] Arterial blood by Pulse C enter oximetry Respiratory rate 18 /min 18 /min [facility] Body temperature 36.148489 Lisa 36.909933 Lisa [facility] Systolic blood pressure 116 mm[Hg] 116 mm[Hg] [facility] Diastolic blood pressure 74 mm[Hg] 74 mm[Hg] [facility] Heart rate 88 /min 88 /min [facility] Oxygen saturation in 98 % 98 % [facility] Arterial blood by Pulse C enter oximetry Respiratory rate 17 /min 17 /min [facility] Body temperature 36.543665 Lisa 36.598977 Lisa [facility] Body surface area Derived 1.74 m2 1.74 m2 ZEESHAN ([facility]) Pt stated she has asthma and her chest i s hurting Body mass index (BMI) 24.6 kg/m2 24.6 kg/m2 GRE ENWAY ([place] [facility]) Pt stated she has asthma and her chest i s hurting Body height 65 [in_us] 65 [in_us] ZEESHAN ([facility]) Pt stated she has asthma and her chest i s hurting Body temperature 98.7 [degF] 98.7 [degF] GREENW AY ([facility]) Pt stated she has asthma and her chest i s hurting Respiratory rate 18 /min 18 /min ZEESHAN ([facility]) Pt stated she has asthma and her chest i s hurting Heart rate 101 /min 101 /min ZEESHAN ([facility]) Pt stated she has asthma and her chest i s hurting Diastolic blood pressure 60 mm[Hg] 60 mm[Hg] ZEESHAN ([facility]) Pt stated she has asthma and her chest i s hurting Systolic blood pressure 92 mm[Hg] 92 mm[Hg] G REENWAY ([facility]) Pt stated she has asthma and her chest i s hurting PhenX - pain, abdominal - type and 0 0 ZEESHAN ([facility]) patientn present for follow up Body weight 137 [lb_av] 137 [lb_av] ZEESHAN ([facility]) patientn present for follow up Body temperature 98.2 [degF] 98.2 [degF] GREENW AY ([facility]) patientn present for follow up Respiratory rate 18 /min 18 /min ZEESHAN ([facility]) patientn present for follow up Heart rate 87 /min 87 /min EZESHAN ([facility]) patientn present for follow up Diastolic blood pressure 67 mm[Hg] 67 mm[Hg] ZEESHAN ([facility]) patientn present for follow up Systolic blood pressure 106 mm[Hg] 106 mm[Hg] G REENWAY ([facility]) patientn present for follow up Body mass index (BMI) 22.8 kg/m2 22.8 kg/m2 [place] EN[place]AY ([facility]) patientn present for follow up Body surface area Derived from 1.68 m2 1.68 m2 [place] ([facility]) patientn present for follow up PhenX - pain, abdominal - type and 0 0 ZEESHAN ([facility]) 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 follow up, patient states she 's been having cramping for 2x weeks on and off Body weight 133 [lb_av] 133 [lb_av] ZEESHAN ([facility]) 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 follow up, patient states she 's been having cramping for 2x weeks on and off Body temperature 98.6 [degF] 98.6 [degF] GREENW AY ([facility]) 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 follow up, patient states she 's been having cramping for 2x weeks on and off Respiratory rate 18 /min 18 /min ZEESHAN ([facility]) 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 follow up, patient states she 's been having cramping for 2x weeks on and off Heart rate 97 /min 97 /min ZEESHAN ([facility]) 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 follow up, patient states she 's been having cramping for 2x weeks on and off Diastolic blood pressure 66 mm[Hg] 66 mm[Hg] ZEESHAN ([facility]) 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 follow up, patient states she 's been having cramping for 2x weeks on and off Systolic blood pressure 101 mm[Hg] 101 mm[Hg] [facility]) 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 follow up, patient states she 's been having cramping for 2x weeks on and off PhenX - pain, abdominal - type and 0 0 ZEESHAN ([facility]) Pt here for 1st 12w 2d Body weight 125 [lb_av] 125 [lb_av] ZEESHAN ([facility]) Pt here for 1st 12w 2d Body temperature 97.6 [degF] 97.6 [degF] GREENW AY ([facility]) Pt here for 1st 12w 2d Heart rate 86 /min 86 /min [place] ([facility]) Pt here for 1st 12w 2d Diastolic blood pressure 72 mm[Hg] 72 mm[Hg] [place] ([facility]) Pt here for 1st 12w 2d Systolic blood pressure 117 mm[Hg] 117 mm[Hg] [facility] ([facility]) Pt here for 1st 12w 2d PhenX - pain, abdominal - type and 0 0 ZEESHAN ([facility]) Patient here today for Nurse Screening w hich was done by Araceli Samuel RN. Body surface area Derived from 1.61 m2 1.61 m2 [place] ([facility]) Patient here today for Nurse Screening w hich was done by Araceli Samuel RN. Body mass index (BMI) 20.6 kg/m2 20.6 kg/m2 GRE ENWAY ([facility]] [facility]) Patient here today for Nurse Screening w hich was done by Araceli Samuel RN. Body weight 124 [lb_av] 124 [lb_av] [place] ([facility]) Patient here today for Nurse Screening w hich was done by Araceli Samuel RN. Body height 65 [in_us] 65 [in_us] ZEESHAN ([facility]) Patient here today for Nurse Screening w hich was done by Araceli Samuel RN. Body temperature 97.6 [degF] 97.6 [degF] GREENW AY ([facility]) Patient here today for Nurse Screening w hich was done by Araceli Samuel RN. Heart rate 93 /min 93 /min [place] ([facility]) Patient here today for Nurse Screening w hich was done by Araceli Samuel RN. Diastolic blood pressure 73 mm[Hg] 73 mm[Hg] [place] ([facility]) Patient here today for Nurse Screening w hich was done by Araceli Samuel RN. Systolic blood pressure 107 mm[Hg] 107 mm[Hg] [facility]) Patient here today for Nurse Screening w hich was done by Araceli Samuel RN. 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, lmp 01/01/18 Respiratory rate 18 /min 18 /min [place] ([facility]) 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 family planning, kitty segura recently admitted to ER stating that she has an ovarien cyst, lmp 18 Heart rate 85 /min 85 /min [place] ([facility]) 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 family planning, pat colton recently admitted to ER stating that she has an ovarien cyst, lmp 18 Diastolic blood pressure 67 mm[Hg] 67 mm[Hg] [place] ([facility]) 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 family planning, kitty segura recently admitted to ER stating that she has an ovarien cyst, lmp 01/01/18 Systolic blood pressure 105 mm[Hg] 105 mm[Hg] [facility]) 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 family planning, pat ient recently admitted to ER stating that she has an ovarien cyst, lmp 01/01/18 Patient Treatment Plan of Care Planned Activity Planned Date Details Description Data Source (s) Abdominal Support 2X/3X 10/17/2018 TERI NUNEZ ([facility] Large Miscellaneous 12:00:00 AM EDT [facility]) Colace 100MG Oral Capsule 10/11/2018 GR EENWAY ([facility] 12:00:00 AM [facility]) ferrous sulfate 325 MG 10/11/[address] ([facility] Oral Tablet 12:00:00 AM [facility]) Eucerin Eczema Relief 1% 07/03/2018 GRE ENAUSTYN ([facility] External Cream 12:00:00 AM [facility]) Eucerin Advanced Repair 07/03/2018 TERI NUNEZ ([facility] External Cream 12:00:00 AM [facility]) Ventolin HFA 108 (90 06/03/2018 YAKOV Y ([facility])MCG/ACT Inhalation 12:00:00 AM [facility] Aerosol Solution [place]) Cholecalciferol 1000 UNT 04/03/2018 GRE SARAY ([facility] Unisom Sleepgels 50MG Oral 03/27/2018 G REENWAY ([facility] Capsule 12:00:00 AM [facility]) Vitamin B6 200MG Oral 03/27/2018 BETY AY ([facility]t [facility] Vitamin and 03/27/2018 YAKOV Y ([facility] Mineral 28-0.8MG Oral 12:00:00 AM EDT [facility]) NebulizerDirections: as Roberta rich [facility] directed Center Albuterol 0.83 MG/ML [facility] Inhalant Solution Center prednisolone 3 MG/ML Oral Sa int [facility]
--- NOTE | 2020-03-19 10:32 | EKG ---
Test Reason : Blood Pressure : / mmHG Vent. Rate : 074 BPM Atrial Rate : 074 BPM P-R Int : 152 ms QRS Dur : 074 ms QT Int : 386 ms P-R-T Axes : 056 059 043 degrees QTc Int : 428 ms NORMAL SINUS RHYTHM NORMAL ECG WHEN COMPARED WITH ECG OF 09-SEP-2018 12:43, NO SIGNIFICANT CHANGE WAS FOUND Confirmed by GIDEON LOPEZ MD ([id number]) on 03/19/2020 10:32:08 AM Referred By: Confirmed By:GIDEON LOPEZ MD
== END 2020-03-18 23:35 | disposition home or self-care (01) ==
LOC: JER 22:01
DX: R07.9 Chest pain, unspecified (principal); F41.9 Anxiety disorder, unspecified
CPT/HCPCS: 71046-TC-FY; 93005; 93010; 99284-25

== ENCOUNTER 2020-11-09 16:33 | Emergency (ER) | payer OTHER ==
[2020-11-09 16:38] VITALS: BP 105/65; PULSE 87; TEMP 97.9; BMI 25.7
== END 2020-11-09 17:37 | disposition home or self-care (01) ==
LOC: JERFT 16:33
DX: N76.0 Acute vaginitis (principal)
CPT/HCPCS: 99281-25

== ENCOUNTER 2020-12-11 13:22 | Emergency (ER) | payer OTHER ==
[2020-12-11 14:05] VITALS: BP 99/67; PULSE 86; TEMP 98; BMI 25.7
== END 2020-12-11 14:35 | disposition home or self-care (01) ==
LOC: JERFT 13:22 → JER 13:22 → JERFT 14:35
DX: J02.9 Acute pharyngitis, unspecified (principal)
CPT/HCPCS: 87070; 87077; 99283-25; C9803; U0003; U0005

== ENCOUNTER 2021-07-29 08:08 | Emergency (ER) | payer BC, OTHER ==
[2021-07-29 08:20] VITALS: BP 116/64; PULSE 85; TEMP 98; BMI 24.6
== END 2021-07-29 11:21 | disposition home or self-care (01) ==
LOC: JERFT 08:08
DX: N64.4 Mastodynia (principal); N60.01 Solitary cyst of right breast
CPT/HCPCS: 76642-TC-RT; 99284-25

== ENCOUNTER 2023-09-14 11:04 | Emergency (ER) | payer OTHER ==
[2023-09-14 11:23] VITALS: BP 100/66; PULSE 75; RESP 18; TEMP 97.7; BMI 24.1
[2023-09-14] MEDS ORDERED: FAMOTIDINE 20 MG TABLET PO ONE (11:54)
[2023-09-14] MEDS ORDERED: ACETAMINOPHEN 500 MG TABLET (FP) PO ONE (11:54)
[2023-09-14] MEDS ORDERED: LIDOCAINE 4% PATCH TP ONE ×2 (12:43→12:45)
[2023-09-14] MEDS ORDERED: MAG HYDROX/AL HYDROX/SIMETH 30 ML UNIT-DOSE CUP ONE ×2 (12:43→12:44)
[2023-09-14] MEDS ORDERED: FAMOTIDINE 20 MG/50 ML IVPB 20 MG/50 ML MG IVPB ONE (12:43)
[2023-09-14] MEDS ORDERED: ACETAMINOPHEN INJECTION 100 ML IVPB ONE (12:43)
[2023-09-14 12:46] LABS: BASO % 0.8 % (0-2.0); EOS % 0.6 % (0-4.5); HEMATOCRIT 40.8 % (32.4-45.2); HEMOGLOBIN 13.6 GM/dL (10.7-15.3); LYMPH % 29.1 % (8-40); MCH 29.2 pg (25.7-33.7); MCHC 33.3 g/dl (32.0-36.0); MEAN CELL VOLUME 87.5 fl (80-96); MONO % 4.7 % (3.8-10.2); NEUT % 64.8 % (42.8-82.8); PLATELET COUNT 337 10^3/uL (134-434); RBC 4.66 M/mm3 (3.60-5.2); RDW 14.1 % (11.6-15.6); WHITE BLOOD COUNT 5.7 K/mm3 (4.0-10.0)
[2023-09-14] MEDS: MAG HYDROX/AL HYDROX/SIMETH -MYLANTA- ORAL SUSPENSION PO ONE (13:00)
[2023-09-14] MEDS: LIDOCAINE 5% TOPICAL PATCH TP ONE (13:02)
[2023-09-14] MEDS: ACETAMINOPHEN 1000 MG/100 ML BAG IVPB ONE (13:02)
[2023-09-14] MEDS: FAMOTIDINE 20 MG/50 ML IVPB 20 MG/50 ML MG IVPB ONE (13:03)
[2023-09-14 13:12] LABS: POTASSIUM 4.7 mmol/L (3.5-5.1)
[2023-09-14 13:14] LABS: ALBUMIN 4.4 g/dl (3.4-5.0); CALCIUM 9.5 mg/dL (8.5-10.1)
[2023-09-14 13:15] LABS: BLOOD UREA NITROGEN 13.6 mg/dL (7-18)
[2023-09-14 13:18] LABS: CREATININE 0.6 mg/dL (0.55-1.3)
[2023-09-14 13:19] LABS: BILIRUBIN,TOTAL 0.8 mg/dL (0.2-1); TOT PROT 7.7 g/dl (6.4-8.2)
[2023-09-14] MEDS ORDERED: LIDOCAINE PATCH REMOVAL MC ONE (22:00)
== END 2023-09-14 15:39 | disposition home or self-care (01) ==
LOC: JER 11:04
PROC: 3E033GC Introduction of Other Therapeutic Substance into Peripheral Vein, Percutaneous Approach (ICD-10-PCS; principal; 2023-09-14)
PROC: 3E033NZ Introduction of Analgesics, Hypnotics, Sedatives into Peripheral Vein, Percutaneous Approach (ICD-10-PCS; 2023-09-14)
DX: R07.2 Precordial pain (principal); R10.13 Epigastric pain
CPT/HCPCS: 36415; 71046-TC-FY; 80053; 83690; 84484; 84703; 85025; 93005; 93010; 99284-25; J0131

== ENCOUNTER 2024-02-15 14:14 | Emergency (ER) | payer OTHER ==
[2024-02-15 14:19] VITALS: BP 112/73; PULSE 74; RESP 18; TEMP 98.5; BMI 22.3
[2024-02-15 16:02] LABS: BASO % 0.7 % (0-2.0); EOS % 0.1 % (0-4.5); HEMATOCRIT 36.8 % (32.4-45.2); HEMOGLOBIN 12.6 GM/dL (10.7-15.3); LYMPH % 16.5 % (8-40); MCH 29.5 pg (25.7-33.7); MCHC 34.2 g/dl (32.0-36.0); MEAN CELL VOLUME 86.5 fl (80-96); MEAN PLT VOLUME 7.4 fl (7.5-11.1); MONO % 5.8 % (3.8-10.2); NEUT % 76.9 % (42.8-82.8); PLATELET COUNT 376 10^3/uL (134-434); RBC 4.26 M/mm3 (3.60-5.2); RDW 13.7 % (11.6-15.6)
[2024-02-15 16:04] LABS: EPI CELLS >36 /uL (0-25.1); HYALINE CASTS 5 /uL (0-3.1); PH,URINE 6.5 (5.0-8.0); URINE APPEARANCE CLOUDY; URINE BACTERIA 3991 /uL (0-1359); URINE BILIRUBIN NEGATIVE (NEGATIVE); URINE COLOR YELLOW; URINE GLUCOSE (UA) NEGATIVE (NEGATIVE); URINE KETONE NEGATIVE (NEGATIVE); URINE LEUK ESTERASE 1+ (NEGATIVE); URINE NITRITE NEGATIVE (NEGATIVE); URINE PROTEIN 1+ (NEGATIVE); URINE RBC 1523 /uL (0-23.9); URINE WBC 306 /uL (0-25.8)
[2024-02-15 16:30] LABS: POTASSIUM 3.7 mmol/L (3.5-5.1)
[2024-02-15 16:33] LABS: CALCIUM 9.2 mg/dL (8.5-10.1)
[2024-02-15 16:34] LABS: BLOOD UREA NITROGEN 14.1 mg/dL (7-18)
[2024-02-15 16:37] LABS: CREATININE 0.5 mg/dL (0.55-1.3)
[2024-02-15 16:38] LABS: BILIRUBIN,TOTAL 1.3 mg/dL (0.2-1); TOT PROT 7.3 g/dl (6.4-8.2)
[2024-02-15 17:33] LABS: HIV INTERPRETATION NEGATIVE (NEGATIVE)
== END 2024-02-15 19:00 | disposition home or self-care (01) ==
LOC: JER 14:14
DX: O20.9 Hemorrhage in early pregnancy, unspecified (principal); Z3A.00 Weeks of gestation of pregnancy not specified
CPT/HCPCS: 36415; 76830-TC; 80053; 81003; 84702; 85025; 86803; 87077; 87086; 87389; 99284-25